=== PATIENT | female | born 1965 | race African-American/Black ===

== ENCOUNTER 2024-09-27 04:22 | Emergency (ER) | payer OTHER, SELFPAY ==
[2024-09-27] VITALS (7 sets, daily range): BP systolic 102–116; BP diastolic 66–98; PULSE 78–90; RESP 17–20; TEMP 36.8; O2SAT 97–100
[2024-09-27 08:06] LABS: Glucose Point of Care 371 mg/dl (65-105)
[2024-09-27 08:11] LABS: Add Urine Microscopic? NO; Appearance Urine Clear (Clear); Basophils Absolute Auto 0.1 K/mm3 (0.0-0.1); Basophils Percent Auto 0.5 % (0.2-1.2); Bilirubin Urine Negative (Negative); Blood Urine Negative (Negative); Color Urine Yellow (Yellow); Eosinophils Absolute Auto 0.3 K/mm3 (0-0.3); Eosinophils Percent Auto 3.1 % (0-4.4); Glucose Urine UA 3+ mg/dL (Negative); Hematocrit 40.2 % (37.0-47.0); Hemoglobin 12.6 g/dL (12.0-15.0); Immature Granulocyte Absolute 0.03 K/mm3 (0.00-0.031); Immature Granulocyte Percent A 0.3 % (0-0.5); Ketones Urine Negative (Negative); Leukocyte Esterase Ur Negative LEU/UL (Negative); Lymphocytes Absolute Auto 4.37 K/mm3 (0.9-3.2); Lymphocytes Percent Auto 46.5 % (18.3-44.2); Mean Corpuscular HGB Conc 31.3 g/dl (32-36); Mean Corpuscular Hemoglobin 27.3 pg (26-34); Monocytes Absolute Auto 0.5 K/mm3 (0.1-0.6); Monocytes Percent Auto 5.7 % (2.6-8.5); Neutrophils Absolute Auto 4.1 K/mm3 (1.3-6.7); Neutrophils Percent Auto 43.9 % (45.5-73.1); Nitrate Urine Negative (Negative); Platelet Count Result 183 k/mm3 (150-375); Protein Urine Negative (Negative); Red Blood Count 4.62 M/mm3 (4.2-5.4); Red Cell Distribution Width 12.8 % (11.5-14.5); Specific Grav Ur 1.031 (1.001-1.035); Urobilinogen Urine 0.2 mg/dL (<2.0); White Blood Count 9.4 K/mm3 (4.5-10.0); pH Urine 5.5 (5.0-9.0)
--- OUTSIDE RECORDS SUMMARY | 2024-09-27 08:19 | XMS_ITS | Encounter Summary ---
Author Name [facility] [place] [facility] [place] Address [address] [place] [address] Care Team Providers Care Hospital Coordinator Name Role Phone SWAPNA JUNG Primary Care Provider Unavailab le Insurance Providers: All historical and current Section Date Range: From patient's date of to the date document was created. This section includes the names of all active insurance providers for the patient. Insurance Provider Type of Coverage Plan Name Start of Policy Coverage End of Policy Coverage Group Number Member ID Insurance Provider's Telephone Number Policy Alexander's Name Patient's Relationship to Policy Alexander Selected Encounter This section includes the information on record at [place] for the Encounter. Date/Time Encounter Type Encounter Description Reason Provider Source Apr 26, 2024 10:00 AM OFFICE O/P EST MOD 30 MIN OPTOMETRY ICD-10-CM H43.813 Vitreous degeneration, bilateral HAUSER,MY-ERICA THI IHE Encounter Template Text not used by [place] Assessments - Encounter Diagnoses This section includes the primary and secondary diagnoses documented for the Encounter. Date/Time Primary/Secondary Diagnosis Diagnosis Name Provider Source Apr 26, 2024 12:36 PM PRIMARY Vitreous degeneration, bilateral HAUSER,PIERRE-ERICA THI [facility] Apr 26, 2024 12:36 PM SECONDARY Combined forms of age-related cataract, bilateral [facility] Apr 26, 2024 12:36 PM SECONDARY Degenerative myopia, bilateral [facility] Apr 26, 2024 12:36 PM SECONDARY Round hole, bilateral [facility] Apr 26, 2024 12:36 PM SECONDARY Type 2 diabetes mellitus without complications [facility] Plan of Treatment: Future Appointments (+ 6 months) and Future Tests (+/- 45 days) The Plan of Treatment section includes future care activities for the patient from all [place] [facility] This section includes future appointments and future orders which are active, pending or scheduled. Future Appointments This section includes appointments that were scheduled to occur 6 months from the date of the Encounter, up to a maximum of 20 appointments. The data comes from all [place] treatment facilities. Appointment Date/Time Appointment Type Appointme nt Facility Name May 02, 2024 11:00 AM AMBULATORY - MEDICINE [facility] May 09, 2024 10:40 AM AMBULATORY - NONE [facility] May 29, 2024 11:00 AM AMBULATORY - MEDICINE [facility] Jun 13, 2024 01:00 PM AMBULATORY - MEDICINE [facility] Jul 03, 2024 10:15 AM AMBULATORY - MEDICINE [facility] Jul 24, 2024 01:00 PM AMBULATORY - SURGERY [facility] Aug 11, 2024 01:45 PM AMBULATORY - MEDICINE [facility] Lab Results: +/- 30 days of the encounter This section includes the Chemistry and Hematology Lab Results on record with [place] for the patient. Radiology Reports and Pathology Reports are provided separately, in subsequent sections. Lab Results This section contains the Chemistry/Hematology Results that were resulted 30 days before or 30 daysafter the date of the Encounter. Date/Time Source Result Type Result - Unit Interpretation Reference Range Comment Apr 11, 2024 12:05 PM [facility] MICRAL/CREAT PROFILE (STL) Specimen Type: URINE No comment entered. Ordering Provider: ANITRA JUNG AVA Report Released Date/Time: Apr 10, 2024 08:49 AM Reporting Lab: [facility] [address] [facility] [phone] Performing Lab: [address] [address] URINE ALBUMIN (PB-STL) 12.9 mg/L uACR (STL) 8 mg/g 0-29 CREATININE URINE/OTHERS 154.4 mg/dL H 47-110 Apr 11, 2024 12:05 PM [facility] URINALYSIS (STL-PB) Specimen Type: URINE No comment entered. Ordering Provider: ANITRA JUNG Report Released Date/Time: Apr 10, 2024 08:49 AM Reporting Lab: [place] [address] Performing Lab: [place] [address] [place] [phone] URINE COLOR Light-Yellow Yellow U.BILIRUBIN Negative mg/dL Negative U.PH 6.0 5.0-8.0 APPEARANCE Clear Clear U.NITRITE Negative mg/dL Negative URN.GLUCOSE Normal mg/dL Negative URN.PROTEIN 10 mg/dL H Negative-20 URN.UROBILINOGEN Normal mg/dL Normal URN.BLOOD Negative mg/dL Negative-Tra ce URN.KETONES Negative mg/dL Negative-Tra ce URN.LEUK.EST. Negative mg/dL Negative-Tra ce URN.SPECIFIC GRAVITY 1.026 1.005-1.029 Apr 11, 2024 11:55 AM [facility] HGA1C Specimen Type: BLOOD No comment entered. Ordering Provider: ANITRA JUNG Report Released Date/Time: Apr 10, 2024 08:48 AM Reporting Lab: [facility] [phone] Performing Lab: [address] [address] HGA1C 9.2 H 4.0-6.0 Apr 11, 2024 11:55 AM [facility] LIPID PANEL (STL) Specimen Type: PLASMA Comment: No hemolysis noted. Ordering Provider: ANITRA JUNG Report Released Date/Time: Apr 10, 2024 08:49 AM Reporting Lab: [facility] [address] [place] [phone] Performing Lab: [facility] [address] [place] [phone] CHOLESTEROL 222 mg/dL H 0-200 TRIGLYCERIDE 83 mg/dL 0-150 CALCULATED LDL 134 mg/dL HDL(New) 71 mg/dL >40 Apr 11, 2024 11:55 AM [facility] VITAMIN D, 25-HYDROXY Specimen Type: SERUM No comment entered. Ordering Provider: ANITRA JUNG Report Released Date/Time: Apr 10, 2024 08:49 AM Reporting Lab: [facility] [address] [place] [phone] Performing Lab: [address] [phone] VITAMIN D, 25-HYDROXY 47.9 ng/mL 30-96 Apr 11, 2024 11:55 AM [facility] TSH W/ REFLEX FT4 (STL) Specimen Type: PLASMA No comment entered. Ordering Provider: ANITRA JUNG Report Released Date/Time: Apr 10, 2024 08:49 AM Reporting Lab: [facility] [address] [place] [phone] Performing Lab: [facility] [address] [place] [phone] TSH 0.823 u[IU]/mL 0.47-5 Apr 11, 2024 11:55 AM [facility] COMPREHENSIVE METABOLIC PANEL Specimen Type: PLASMA Comment: No hemolysis noted. Ordering Provider: ANITRA JUNG Report Released Date/Time: Apr 10, 2024 08:48 AM Reporting Lab: [facility] [address] [place] [phone] Performing Lab: [address] [address] CREATININE 0.93 mg/dL 0.6-1.1 UREA NITROGEN 21.3 mg/dL 9.0-25.0 GLUCOSE 155 mg/dL H 72-99 SODIUM 141 meq/L 136-145 POTASSIUM 3.8 meq/L 3.5-5 CHLORIDE 105 meq/L 98-107 CARBON DIOXIDE 27 meq/L 22-31 CALCIUM 10.2 mg/dL 8.4-10.4 PROTEIN 7.7 g/dL 6-8.6 ALBUMIN 4.7 g/dL 3.4-5 TOTAL BILIRUBIN 0.9 mg/dL 0.2-1.2 ALKALINE PHOSPHATASE 109 U/L 40-150 AST/SGOT 19 U/L 5-34 ALT/SGPT 19 U/L 8-40 EGFR (CKD-EPI 2020) 70.8 >60 Apr 11, 2024 11:55 AM [facility] CBC Specimen Type: BLOOD No comment entered. Ordering Provider: ANITRA JUNG Report Released Date/Time: Apr 10, 2024 08:49 AM Reporting Lab: [facility] [address] [facility] [phone] Performing Lab: [facility] [address] [facility] [phone] WBC 8.1 10*3/uL 3.6-11.2 RBC 4.96 10*6/uL 3.60-5.00 HGB 13.5 g/dL 11.0-14.9 HCT 42.3 32.6-43.4 MCV 85.3 fL 80.0-100.0 MCH 27.2 pg 27.0-34.0 MCHC 31.9 g/dL L 33.0-36.0 PLT 234 10*3/uL 150-400 MPV 12.9 fL H 7.5-11.2 RDW 13.2 11.8-15.1 LYMPHOCYTES, AUTO % 50 MONOCYTES, AUTO % 6 NEUTROPHILS, AUTO % 40 EOSINOPHILS, AUTO % 3 BASOPHILS, AUTO % 1 LYMPHOCYTES, ABSOLUTE 4.05 10*3/uL 0.77-4.50 MONOCYTES, ABSOLUTE 0.51 10*3/uL 0.19-0.80 NEUTROPHILS, ABSOLUTE 3.24 10*3/uL 2.10-8.00 EOSINOPHILS, ABSOLUTE 0.24 10*3/uL 0.00-0.60 BASOPHILS, ABSOLUTE 0.04 10*3/uL 0.00-0.20 Apr 04, 2024 11:01 AM [facility] GLUCOSE,BLOOD-poct (STL) Specimen Type: BLOOD Comment: Test Performed by: [id number] Meter #: [id number] Ordering Provider: ANITRA JUNG Report Released Date/Time: Apr 04, 2024 02:12 PM Reporting Lab: [facility] [address] [facility] [phone] Performing Lab: [facility] [address] [facility] [phone] GLUCOSE,BLOOD-po ct (STL) 331 mg/dL H 72-99 Social History: Smoking Status (Most current) and Tobacco Use (All prior to encounter date) This section includes the most current, and the historical, smoking and tobacco- related health factors from the [place] facility where the Encounter took place. Current Smoking Status This section includes the most current smoking, or tobacco-related health factor, from the [place] facility where the Encounter took place. Date/Time Current Smoking Status Comment Facil ity Feb 06, 2014 01:50 PM LIFETIME NON-USER OF TOBACCO [facility] Tobacco Use History This section includes a history of the smoking, or tobacco-related health factors, that were collected on or before the date of the Encounter. The data comes from the [place] facility where the Encounter took place. Date/Time Smoking Status/Tobacco Use Comment F acility Apr 10, 2013 02:18 PM LIFETIME NON-USER OF TOBACCO [facility] May 06, 2007 08:25 AM LIFETIME NON-USER OF TOBACCO [facility] Advance Directives: All historical and current Section Date Range: From patient's date of to the date document was created. This section includes ALL of a patient's completed or amended [place] Advance and Rescinded Directives. The entries below indicate that a directive exists for the patient, but an actual copy is not included with this document. The data comes from all [place] facilities. Date Advance Directives Provider Source Sep 17, 2014 ADVANCE DIRECTIVE DISCUSSION TAMMIE GARDNER [facility] Radiology Reports: +/- 30 days of the encounter Radiology Reports For cases when an order for radiology services may have been completed prior to the date of the Encounter, the report list includes the Radiology Reports that were completed up to 30 days before dateof the Encounter. For cases when an order for radiology services may have been completed after the date of the Encounter, the report list also includes the Radiology Reports that were completed up to30 days after date of the Encounter. The data comes from all [place] treatment facilities. Date/Time Radiology Report Provider Source May 09, 2024 10:26 AM MAMM DIG SCREENING WITH CAD-P: AMBER WIN [id number] -[id number] F Exm Date: MAY 09, 2024@10:26 Req Phys: SWAPNA JUNG Loc: [facility] (Req'g Img Loc: [facility] Service: [facility], [address] [address] (Case 463 COMPLETE) SCREENING DIG BREAST DEVAN, BILAT,([facility] Detailed) CPT:75747 Proc Modifiers : LEFT, RIGHT Reason for Study: Annual screening (Case 465 COMPLETE) MAMMOGRAPHY SCREENING, BILAT INCL([facility] Detailed) CPT:50566 Proc Modifiers : LEFT, RIGHT Clinical History: May 07, 2023: BI-RADS CATEGORY 1 Report Status: Verified Date Reported: MAY 10, 2024 Date Verified: MAY 10, 2024 Sql Data Architect E-Sig:/ES/ELIAN GOOD Report: BILATERAL SCREENING MAMMOGRAM CASE NUMBERS: [id number], [id number] DATE: 05/09/2024. COMPARISON: Multiple prior mammograms and breast sonograms, dating retrospectively between 05/16/2012 and, more recently, 05/07/2023. HISTORY: Screening mammogram. 58-year-old -[place] female without a family history of breast cancer presents for asymptomatic screening. Previous benign needle core biopsy of the right breast in 2010. Prior sonographically documented multiple right breast cysts. TECHNIQUE: Mammogram images were performed using 3D tomosynthesis images with reconstructed/synthetic 2D images and CAD analysis. BREAST COMPOSITION: The breasts are heterogeneously dense, which may obscure small masses. MAMMOGRAM FINDINGS: There is no suspicious mass, suspicious clustered microcalcification, or architectural distortion in either breast on 2D or 3D images. There are stable long-standing benign punctate microcalcifications associated with the areas of glandular density within each breast, statistically likely representing adenosis. There have been no significant interval changes in the mammographic appearance when compared with the prior images. Impression: No mammographic evidence of malignancy. ASSESSMENT: BI-RADS Category 2: Benign finding(s). RECOMMENDATION: Screening mammography according to the [employer] / [employer] guidelines in consultation with primary healthcare provider. Primary Interpreting Staff: ELIAN GOOD Diagnostic Radiologist (Sql Data Architect) /ELIAN MELTON [facility] Apr 11, 2024 11:42 AM KNEE OA SERIES LEFT 3 VWS>/=55: AMBER WIN [id number] -[id number] F Exm Date: APR 11, 2024@11:42 Req Phys: ERICHSWAPNA Pat Loc: [facility] PACT PHONE 03 PCP ( Img Loc: [facility] SUITE Service: [facility], [facility] [address] [place] [address] (Case [id number] COMPLETE) KNEE,LEFT, 3 VIEWS (RAD Detailed) CPT:61645 Proc Modifiers : BILAT AP & BILAT SUNRISE Reason for Study: Left knee pain, (Case 1635 COMPLETE) KNEE,RIGHT,1 OR 2 VIEWS (RAD Detailed) CPT:49607 Proc Modifiers : BILAT AP & BILAT SUNRISE Clinical History: left knee pain, hurting bad on walking Do films need to be ortho templated printed? No Report Status: Verified Date Reported: APR 11, 2024 Date Verified: APR 11, 2024 Sql Data Architect E-Sig:/ES/MELISSA CAMERON MD Report: Case #[id number] and #[id number]. Bilateral knee examination. COMPARISON: Left knee 05/22/2011. Finding: AP view of bilateral knee and lateral view of the left knee followed by sunrise view of the patella bilaterally shows marked joint space narrowing at the medial compartment of the right knee. Moderate joint space narrowing at the medial compartment of the left knee. No fracture dislocation. Marginal spur at all three compartments of the left knee. Small spur at the medial and the lateral compartment of the right knee. No evidence of left suprapatellar effusion. No radiopaque foreign body. Impression: Tricompartmental degenerative joint disease in the left knee. Marked degenerative joint disease at the medial compartment of the right knee. Primary Interpreting Staff: MELISSA CAMERON MD, Staff Physician - Radiologist (Sql Data Architect) /DARIO FINNEY [facility] Encounter Notes: All associated encounter notes This section contains the clinical notes associated to the Encounter. Date/Time Encounter Note(s) Provider Source Apr 26, 2024 12:20 PM OPTOMETRY CONSULT: LOCAL TITLE: OPTOMETRY CONSULT ST STANDARD TITLE: OPTOMETRY CONSULT DATE OF NOTE: APR 26, 2024@12:20 ENTRY DATE: APR 26, 2024@12:21:04 AUTHOR: ABDOULAYE HAUSER EXP COSIGNER: URGENCY: STATUS: COMPLETED Ocular Coherence Tomography Report RNFL/ONH and Macula Note: The image can be viewed on [facility] Reason for OCT: 1. Rx shift, decreased vision OS>OD Assessment: Macula OD: normal foveal pit contour, normal retina OS: normal foveal pit contour, normal retina OU: no DME /es/ ABDOULAYE HAUSER O.D. Staff Physician, Optometry Signed: 04/26/2024 12:22 ABDOULAYE HAUSER [facility] Apr 26, 2024 09:57 AM OPTOMETRY NOTE: LOCAL TITLE: OPTOMETRY NOTE STANDARD TITLE: OPTOMETRY NOTE DATE OF NOTE: APR 26, 2024@09:57 ENTRY DATE: APR 26, 2024@09:57:49 AUTHOR: ABDOULAYE HAUSER EXP COSIGNER: URGENCY: STATUS: COMPLETED Last seen: 05/26/2023 CC: 1. Floaters OS>OD ongoing for 4 months now denies flashes of lights intermittent, current notices them paz ovals per patient 2. vision is stable states blood sugars were elevated for about 2 weeks says slowly getting better/under control contacts are comfortable, vision in OS is blurry does not sleep in contacts has a couple months worth left glasses are in good condition Ocular Meds: (+) PFATs PRN OU (+) Refresh PM QHS OU (+) Ketotfien BID OU Ocular ROS: (+) Degenerative Myopia OU/ Contact lens dispense OU (+) Diabetes without retinopathy OU (+) Combined Cataracts OU (+) Atrophic Holes OU per last DFE *s/p barricade laser OU, retina intact 360^ OU (+) Dry Eyes/Allergic conjunctivitis OU Family OcHX: (-) blindness (-) glaucoma (-) AMD (-) RD Problem list, medications and allergies reviewed: CPRS Serology for Diabetes GLUCOSE 155 H mg/dL 04/11/2024 11:55 HGA1C 9.2 H % 04/11/2024 11:55 Cardiovascular BP: 142/84 (04/04/2024 10:49) Pulse: 92 (04/04/2024 10:49) VISUAL ACUITY: With Correction, Distance Visual Acuity (SCLs) OD: 20/20 slow OR: +0.25 DS VA: 20/20 fluctuating OS: 20/40 doubling/shadow OR: +1.75 DS VA: 20/20 fluctuating Pupils: PERRL OU (-)APD Confrontation: Full OU Extra-Ocular Muscles: Full and smooth OU Externals/Adnexa: Unremarkable OU Manifest Refraction: 01/06/21 OD: -10.25 -0.50 x055 20/25 OS: -10.00 -0.75 x155 20/25 20/20 OU Add: +2.50 TF'd for acceptance distance and near Manifest Refraction: 03/04/23 OD: -10.75 -0.50 x055 20/25 OS: -9.50 -0.75 x155 20/20- 20/20-2 OU Add: +2.50 Refraction 04/26/2024 OD: -10.00 -0.75 x055 20/25+2 - poor end points OS: -9.00 -0.50 x155 20/25 - poor end points SLIT LAMP EXAMINATION Lids/Lashes/Lacrimal No blepharitis OU; thin tear prism OU Conjunctiva/Sclera tr diffuse injection, 1+ papillary rxn BUL/BLL Cornea instant/oily TBUT OU OD: ~1mm encroachment superior/temporal OS: ~1mm inferonasal and superonasal Ant Chamber Deep and quiet OU Iris Normal, (-)NVI OU Lens 1+ NS, 1-2+ ACC/PCC OS>OD Intraocular Pressure History (Fluress/Goldmann): Date OD OS Time Meds 01/06/2021 17 18 1431 none 03/04/23 16 18 0818 none 04/26/2024 17 18 1023 none RETINAL EVALUATION - DFE Dilated retinal exam Instilled 1 gtt phenylephrine 2.5%, 1 gtt tropicamide 1% OU Patient understands the side effects associated with dilation Optic Nerve: OD: 0.45 CDR Flat, pink, distinct (-)NVD, tilt, PPA OS: 0.40 CDR Flat, pink, distinct (-)NVD, tilt, PPA Vessels: 2/3 OU Macula: OD: Flat, clear (-)CSME OS: Flat, clear (-)CSME Periphery: OD: Flat and attached, heavy barrier laser scarring essentially 360 OS: Flat and attached, heavy barrier laser scarring essentially 360 Vitreous: (+)few vitreous opacities overlying barricated retinal holes OU (+)PVD OU Assessment/Plan 04/26/2024 1. Posterior Vitreous Detachment, OU - OD longstanding, OS new - retina intact 360^ - symptoms for 4 months now, no flashes - Reviewed signs and symptoms of RD and instructed patient to RTC STAT if experiencing any. - Monitor 2. Type 2 Diabetes without retinopathy, OU - Last a1c 9.2 - states elevated recently - No DME/CSME on clinical examination; confirmed with OCT Macula - Educate and monitor, discussed diabetic eye disease, patient understands importance of good blood sugar control. - Monitor 3. Atrophic Holes, OU - s/p Barricade Laser OU - Retina intact 360 OU - RD precautions as above - Monitor yearly with DFE - STRICT return SUNITA with any s/sx of RD 4. Combined Cataracts, OU - Discussed impact on vision - Mildly visually significant - Defer referral for CE-PCIOL until s/sx indicate 5. Dry Eyes Symptoms, OU - Allergic conjunctivitis, OU - Encouraged to use PF-ATs up to QID/+PRN OU - Monitor 3-4 months Aseg 6. Degenerative Myopia OU/Contact Lens Dispense, OU - Pt. previous wore Acuvue Oasys, signs of encroachment 12/2020 - Fit of contact lens adequate today - OR showing hyperopic shift in CL and Rx - Hx of elevated blood sugars - Will recheck in 3-4 months Educate and monitor, discussed all exam findings. Patient and/or surrogate verbalized understanding of the instructions/information given. RTC: 3-4 months Aseg and CL Eval/MRx repeat CONTACT LENS ASSESSMENT: 04/26/2024 OD: Brand: Acuvue Oasys 1 Day with Hydraluxe BC: 8.5 JASSI: 14.3 Power: -9.50 DS VA: 20/20 slow OR: +0.25 DS 20/20 fluctuating Fit: Good CCM; oily TF OS: Brand: Acuvue Oasys 1 Day with Hydraluxe BC: 8.5 JASSI: 14.3 Power: -8.50 DS VA: 20/40 shadowing OR: +1.75 DS 20/20 fluctuating Fit: Good CCM; oily TF /jacek/ ABDOULAYE HAUSER O.D. Staff Physician, Optometry Signed: 04/26/2024 12:37 ABDOULAYE HAUSER [facility]
--- OUTSIDE RECORDS SUMMARY | 2024-09-27 08:20 | XMS_ITS | Encounter Summary ---
Author Name [facility] Organization [facility] [place] Address [address] [place] [address] Care Team Providers Care Mems Device Scientist Name Role Phone SWAPNA JUNG Primary Care [...] section includes the information on record at [place] for the Encounter. Date/Time Encounter Type Encounter Description Reason Provider Source Apr 04, 2024 11:00 AM OFFICE O/P EST MOD 30 MIN PRIMARY CARE/MEDICINE ICD-10-CM E11.9 Type 2 diabetes mellitus without complications JANETH JUNG Encounter Template Text not used by [place] Assessments - Encounter Diagnoses This section includes the primary and secondary diagnoses documented for the Encounter. Date/Time Primary/Secondary Diagnosis Diagnosis Name Provider Source Apr 04, 2024 11:18 AM PRIMARY Type 2 diabetes mellitus without complications [facility] Apr 04, 2024 11:18 AM SECONDARY Acne, unspecified DANITZA JUNG [facility] Apr 04, 2024 11:18 AM SECONDARY Benign lipomatous neoplasm, unspecified DANITZA JUNG [facility] Apr 04, 2024 11:18 AM SECONDARY Essential (primary) hypertension DANITZA JUNG [facility] Apr 04, 2024 11:18 AM SECONDARY Primary osteoarthritis, unspecified site DANITZA JUNG [facility] Apr 04, 2024 11:18 AM SECONDARY Type 2 diabetes mellitus with unspecified complications DANITZA JUNG [facility] Plan of Treatment: Future Appointments (+ 6 months) and Future Tests (+/- 45 days) The Plan of Treatment section includes future care activities for the patient from all [facility] This section includes future appointments and future orders which are active, pending or scheduled. Future Appointments This section includes appointments that were scheduled to occur 6 months from the date of the Encounter, up to a maximum of 20 appointments. The data comes from all [place] treatment facilities. Appointment Date/Time Appointment Type Appointme nt Facility Name Apr 10, 2024 08:30 AM AMBULATORY - MEDICINE [facility] Apr 11, 2024 02:15 PM AMBULATORY - MEDICINE [facility] Apr 26, 2024 10:00 AM AMBULATORY - SURGERY [facility] May 02, 2024 11:00 AM AMBULATORY - MEDICINE [facility] May 09, 2024 10:40 AM AMBULATORY - NONE [facility] May 29, 2024 11:00 AM AMBULATORY - MEDICINE [facility] Jun 13, 2024 01:00 PM AMBULATORY - MEDICINE [facility] Jul 03, 2024 10:15 AM AMBULATORY - MEDICINE [facility] Jul 24, 2024 01:00 PM AMBULATORY - SURGERY [facility] Aug 11, 2024 01:45 PM AMBULATORY - MEDICINE [facility] Lab Results: +/- 30 days of the encounter This section includes the Chemistry and Hematology Lab Results on record with [place] for the patient. Radiology Reports and Pathology Reports are provided separately, in subsequent sections. Lab Results This section contains the Chemistry/Hematology Results that were resulted 30 days before or 30 daysafter the date of the Encounter. Date/Time Source Result Type Result - Unit Interpretation Reference Range Comment Apr 11, 2024 12:05 PM [facility] MICRAL/CREAT PROFILE (STL) Specimen Type: URINE No comment entered. Ordering Provider: ANITRA JUNG Report Released Date/Time: Apr 10, 2024 08:49 AM Reporting Lab: [facility] [address] [place] [phone] Performing Lab: [facility] [address] [place] [phone] URINE ALBUMIN (PB-STL) 12.9 mg/L uACR (STL) 8 mg/g 0-29 CREATININE URINE/OTHERS 154.4 mg/dL H 47-110 Apr 11, 2024 12:05 PM [facility] URINALYSIS (STL-PB) Specimen Type: URINE No comment entered. Ordering Provider: ANITRA JUNG Report Released Date/Time: Apr 10, 2024 08:49 AM Reporting Lab: [facility] [address] [place] [phone] Performing Lab: [address] [phone] URINE COLOR Light-Yellow Yellow U.BILIRUBIN Negative mg/dL Negative U.PH 6.0 5.0-8.0 APPEARANCE Clear Clear U.NITRITE Negative mg/dL Negative URN.GLUCOSE Normal mg/dL Negative URN.PROTEIN 10 mg/dL H Negative-20 URN.UROBILINOGEN Normal mg/dL Normal URN.BLOOD Negative mg/dL Negative-Tra ce URN.KETONES Negative mg/dL Negative-Tra ce URN.LEUK.EST. Negative mg/dL Negative-Tra ce URN.SPECIFIC GRAVITY 1.026 1.005-1.029 Apr 11, 2024 11:55 AM [facility] Specimen Type: BLOOD No comment entered. Ordering Provider: ANITRA JUNG Report Released Date/Time: Apr 10, 2024 08:48 AM Reporting Lab: [facility] [address] [place] [phone] Performing Lab: [address] [address] HGA1C 9.2 H 4.0-6.0 Apr 11, 2024 11:55 AM [facility] LIPID PANEL (STL) Specimen Type: PLASMA Comment: No hemolysis noted. Ordering Provider: ANITRA JUNG Report Released Date/Time: Apr 10, 2024 08:49 AM Reporting Lab: [facility] [address] [facility] [phone] Performing Lab: [facility] [address] [facility] [phone] CHOLESTEROL 222 mg/dL H 0-200 TRIGLYCERIDE 83 mg/dL 0-150 CALCULATED LDL 134 mg/dL HDL(New) 71 mg/dL >40 Apr 11, 2024 11:55 AM [facility] VITAMIN D, 25-HYDROXY Specimen Type: SERUM No comment entered. Ordering Provider: ANITRA JUNG Report Released Date/Time: Apr 10, 2024 08:49 AM Reporting Lab: [facility] [address] [facility] [phone] Performing Lab: [facility] [address] [facility] [phone] VITAMIN D, 25-HYDROXY 47.9 ng/mL 30-96 Apr 11, 2024 11:55 AM [facility] TSH W/ REFLEX FT4 (L) Specimen Type: PLASMA No comment entered. Ordering Provider: ANITRA JUNG Report Released Date/Time: Apr 10, 2024 08:49 AM Reporting Lab: [facility] [address] [facility] [phone] Performing Lab: [facility] [address] [facility] [phone] TSH 0.823 u[IU]/mL 0.47-5 Apr 11, 2024 11:55 AM [facility] COMPREHENSIVE METABOLIC PANEL Specimen Type: PLASMA Comment: No hemolysis noted. Ordering Provider: ANITRA JUNG Report Released Date/Time: Apr 10, 2024 08:48 AM Reporting Lab: [facility] [address] [facility] [phone] Performing Lab: [facility] [address] [place] [phone] CREATININE 0.93 mg/dL 0.6-1.1 UREA NITROGEN 21.3 [...] 70.8 >60 Apr 11, 2024 11:55 AM [facility] CBC Specimen Type: BLOOD No comment entered. Ordering Provider: ANITRA JUNG AVA Report Released Date/Time: Apr 10, 2024 08:49 AM Reporting Lab: [facility] [address] [place] [phone] Performing Lab: [address] [phone] WBC 8.1 10*3/uL 3.6-11.2 RBC 4.96 10*6/uL [...] 10*3/uL 0.00-0.20 Apr 04, 2024 11:[address] [facility] GLUCOSE,BLOOD-poct (STL) Specimen Type: BLOOD Comment: Test Performed by: [id number] Meter #: [id number] Ordering Provider: ANITRA JUNG Report Released Date/Time: Apr 04, 2024 02:12 PM Reporting Lab: [facility] [address] [facility] [phone] Performing Lab: [facility] [address] [facility] [phone] GLUCOSE,BLOOD-po ct (STL) 331 mg/dL H 72-99 Vital Signs: All taken on the encounter date This section contains inpatient and outpatient Vital Signs collected on the date of the Encounter. Date/Time Temperature Pulse Blood Pressure Respiratory Rate SP02 Pain Height Weight Body Mass Index Source Apr 04, 2024 10:49 AM 97.8 92 142/84 16 [address] [facility] Social History: Smoking Status (Most current) and Tobacco Use (All prior to encounter date) This section includes the most current, and the historical, smoking and tobacco- related health factors from the [place] facility where the Encounter took place. Current Smoking Status This section includes the most current smoking, or tobacco-related health factor, from the [place] facility where the Encounter took place. Date/Time Current Smoking Status Comment Twan ity May 28, 2023 02:00 PM VA-TOBACCO NEVER USED [facility] Tobacco Use History This section includes a history of the smoking, or tobacco-related health factors, that were collected on or before the date of the Encounter. The data comes from the [place] facility where the Encounter took place. Date/Time Smoking Status/Tobacco Use Comment F acility May 29, 2022 03:00 PM VA-TOBACCO NEVER [facility]ED [facility] Mar 21, 2021 11:30 AM VA-TOBACCO NEVER [facility]ED [facility] Oct 24, 2019 09:17 AM VA-TOBACCO NEVER [facility]ED [facility] Aug 08, 2018 02:11 PM VA-TOBACCO NEVER [facility]ED [facility] Mar 02, 2017 02:54 PM LIFETIME NON-USER OF TOBAC CO . [facility] Feb 12, 2017 03:17 PM LIFETIME NON-USER OF TOBACCO [facility] Feb 10, 2017 09:17 AM LIFETIME NON-USER OF TOBACCO [facility] Jul 09, 2016 03:17 PM LIFETIME NON-USER OF TOBACCO [facility] Sep 27, 2015 02:47 PM LIFETIME NON-USER OF TOBACCO [facility] November 28, 2014 02:10 PM LIFETIME NON-USER OF TOBACCO [facility] Advance Directives: All historical and current Section Date Range: From patient's date of to the date document was created. This section includes ALL of a patient's completed or amended [place] Advance and Rescinded Directives. The entries below indicate that a directive exists for the patient, but an actual copy is not included with this document. The data comes from all [place] facilities. Date Advance Directives Provider Source Sep 17, 2014 ADVANCE DIRECTIVE DISCUSSION TAMMIE GARDNER [facility] Radiology Reports: +/- 30 days of the [...] the Encounter. The data comes from all [place] treatment facilities. Date/Time Radiology Report Provider Source Apr 11, 2024 11:42 AM KNEE OA SERIES LEF T 3 VWS>/=55: AMBER WIN [id number] -[phone] F Exm Date: APR 11, 2024@11:42 Req Phys: SWAPNA JUNG Pat Loc: -[facility] PACT PHONE 03 PCP ( Img Loc: -MAIN RADIOLOGY SUITE Service: [facility], [address] [place] [address] (Case [id number] COMPLETE) KNEE,LEFT, 3 VIEWS (RAD Detailed) CPT:29879 Proc Modifiers : BILAT AP & BILAT SUNRISE Reason for Study: Left knee pain, (Case 1635 COMPLETE) KNEE,RIGHT,1 OR 2 VIEWS (RAD Detailed) CPT:76251 Proc Modifiers : BILAT AP & BILAT SUNRISE Clinical History: left knee pain, hurting bad on walking Do films need to be ortho templated printed? No Report Status: Verified Date Reported: APR 11, 2024 Date Verified: APR 11, 2024 Under Ground [employer]er E-Sig:/ES/MELISSA CAMERON MD Report: Case #[id number] and [...] MELISSA CAMERON MD, Staff Physician - Radiologist (Under Ground Miner) /MELISSA FINNEY [facility] Encounter Notes: All associated encounter notes This section contains the clinical notes associated to the Encounter. Date/Time Encounter Note(s) Provider Source Apr 04, 2024 10:57 AM PRIMARY CARE NOTE: LOCAL TITLE: PRIMARY CARE PROVIDER ESTABLISHED VISIT [facility] STANDARD TITLE: PRIMARY CARE NOTE DATE OF NOTE: APR 04, 2024@10:57 ENTRY DATE: APR 04, 2024@10:57:59 AUTHOR: SWAPNA JUNG EXP COSIGNER: URGENCY: STATUS: COMPLETED ESTABLISHED PATIENT [id number]: REASON FOR VISIT/CHIEF COMPLAINT: Multiple c/o Please note that this dictation was completed with computer voice recognition software, often unanticipated grammatical, syntax and other interpretive errors are inadvertently transcribed by the computer software. Please disregard these errors. HPI: 58 YO AAF with medical hx of DM2,Hypertension, HL s/p bilateral carpal tunnel syndrome, ACN/facial scars Back pain, knee pain s/p bilateral knee surgery Patient came to the clinic with multiple complaints Report not feeling good no appetite since last 2 months Feeling tired and fatigue, not taking diabetes medicine or monitor Blood sugar, patient is trying to treat her diabetes with a holistic Medicine. Report for polyuria and increased thirst She had history of noncompliant and has been transferred to ER Few times before due to same complaint She has a big lipoma around right thigh asking for referral Pain in left knee hard time to walk Also breaking out has rash all over her face and back of neck Had same problem with acne in the past Patient is tearful and reports not feeling good Complains of fever WHAT IS YOUR GOAL FOR TODAY? As above SOURCE(S) OF HISTORY: Patient PAST MEDICAL HISTORY: 1) Obesity (SNOMED CT 255423890) 2) 599 3) Acute pharyngitis 4) Chronic back pain (SNOMED CT 576601084) 5) Dermatophytosis of foot (ICD-9-CM 110.4) 6) Asthma * (ICD-9-CM 493.90) 7) Knee pain (SNOMED CT 0436018328) 8) Psychotic Disorder NOS 9) Chronic Low Back Pain (ICD-9-CM 724.2) 10) Asthma (SNOMED CT 349923810) 11) Benign essential hypertension (SNOMED CT 1296697) 12) Anxiety Disorder NOS 13) Chronic anxiety (SNOMED CT 952671860) 14) Muscle Spasm (ICD-9-CM 728.85) 15) Breast Mass (ICD-9-CM 611.72) 16) OA - Osteoarthritis (SNOMED CT 257082096) 17) Hypokalemia * (ICD-9-CM 276.8) 18) 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< (SNOMED CT 685700199) 19) Asthma (SNOMED CT 314209111) 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 21) CTS - Carpal tunnel syndrome (SNOMED CT 89220454) 22) Lateral Epicondylitis (Tennis Elbow) (ICD-9-CM 726.32) 23) Depression (SNOMED CT 33988645) 24) Impaired glucose tolerance (SNOMED CT 6550441) 25) Sleep apnea syndrome (SNOMED CT 45578282) 26) Ganglion of wrist 27) Rotator Cuff Syndrome 28) Shoulder pain (SNOMED CT 23762331) 29) Diabetes mellitus 30) Hyperlipidemia 31) Acute pharyngitis 32) Pain in left foot 33) Moderate dehydration 34) Lipoma 35) Sinusitis 36) Gastro-esophageal reflux disease 37) Folliculitis 38) Urticaria 39) Conjunctivitis 40) Acne vulgaris 41) Diabetic - poor control 42) OM - Otitis media 43) Impacted cerumen in right ear 44) Carpal tunnel syndrome 45) Closed fracture of phalanx of right great toe 46) Wrist pain 47) Pain in right hand 48) Exposure to potentially hazardous substance 49) Entrapment of right ulnar nerve at elbow 50) Bronchitis ALLERGIES: EGGS, METFORMIN, EMPAGLIFLOZIN, PENICILLIN ALLERGY REVIEW: Allergy list reviewed and remains current. MEDICATION RECONCILIATION: I have reviewed the patient's medication list with the patient and/or his/her care-ticket clerk. Handwritten corrections, additions and/or deletions were made to the list. Corrected Outpatient Medication List was provided to the patient/caregiver. Active Outpatient Medications (including Supplies): Active Outpatient Medications Status 1) ALBUTEROL 90MCG (CFC-F) 200D ORAL INHL INHALE 2 PUFFS ACTIVE ORAL INHALATION FOUR TIMES A DAY FOR ASTHMA SHAKE WELL. RINSE MOUTHPIECE FREQUENTLY TO PREVENT CLOGGING. 2) ATORVASTATIN CALCIUM 40MG TAB TAKE ONE-HALF TABLET BY ACTIVE MOUTH EVERY EVENING TO LOWER CHOLESTEROL 3) BENZONATATE 100MG CAP TAKE ONE CAPSULE BY MOUTH THREE ACTIVE TIMES A DAY NEEDED 4) CETIRIZINE HCL 10MG TAB TAKE ONE TABLET BY MOUTH ONCE ACTIVE A DAY TAKE DAILY FOR ITCH AND ALLERGIES 5) CHOLECALCIF 50MCG (D3-2,000UNIT) TAB TAKE ONE TABLET ACTIVE BY MOUTH ONCE A DAY FOR VITAMIN D DEFICIENCY. 6) CITALOPRAM HYDROBROMIDE 40MG TAB TAKE ONE TABLET BY ACTIVE MOUTH EVERY MORNING FOR DEPRESSION 7) FLUTICASONE PROP 50MCG 120D NASAL INHL INSTILL 2 ACTIVE SPRAYS IN NOSTRIL(S) ONCE A DAY (MUST BE USED DIRECTED FOR MINIMUM OF 21 DAYS TO PROVIDE ADEQUATE BENEFITS) 8) GLIMEPIRIDE 4MG TAB TAKE ONE TABLET BY MOUTH ONCE A ACTIVE DAY FOR DIABETES WITH FOOD 9) GLUCOSE SENSOR FREESTYLE JOSHUA 3 USE SENSOR EVERY ACTIVE 2 WEEKS FOR BLOOD SUGAR MONITORING CHANGE SENSOR/SITE EVERY 14 DAYS. TO REPLACE SENSOR FOR ANY REASON OR FOR TECHNICAL HELP PLEASE CALL [employer] HELP DESK: -SPECIFIC PHONE NUMBER: ([phone]). 10) HCTZ 12.5/LISINOPRIL 10MG TAB TAKE 1 TABLET BY MOUTH ACTIVE EVERY MORNING FOR HEART OR BLOOD PRESSURE 11) HYDROCORTISONE 2.5% CREAM APPLY SPARINGLY TO AFFECTED ACTIVE AREA(S) ONCE A DAY NEEDED FOR EXTERNAL USE ONLY. APPLY SPARINGLY. 12) INSULIN,ASPART(EQV-NOVLG)10 0UN/ML FLXPEN INJECT 10 ACTIVE UNITS UNDER THE SKIN THREE TIMES A DAY BEFORE MEALS FOR DIABETES ADMINISTER 10 MINUTES BEFORE FOOD DIRECTED. REFRIGERATE UN-OPENED PENS. DISCARD CARTRIDGE 28 DAYS AFTER OPENING. 13) INSULIN,GLARGINE-YFGN 100UNIT/ML PEN 3ML INJECT 40 ACTIVE UNITS UNDER THE SKIN AT BEDTIME FOR BLOOD SUGAR CONTROL. ADMINISTER AT SAME TIME EACH DAY DIRECTED. DISCARD ANY OPEN CARTRIDGE AFTER 28 DAYS. 14) NEEDLE,PEN 31G,5MM USE 1 NEEDLE UNDER THE SKIN FOUR ACTIVE TIMES A DAY 15) POTASSIUM CL 20MEQ SA TAB (DISPERSIBLE) TAKE ONE-HALF ACTIVE TABLET BY MOUTH ONCE A DAY FOR POTASSIUM SUPPLEMENTATION TAKE WITH FOOD 16) SITAGLIPTIN (EQV-ZITUVIO) 50MG TAB TAKE ONE TABLET BY ACTIVE MOUTH ONCE A DAY FOR DIABETES REPLACES ALOGLIPTIN 17) SULFACETAMIDE NA 10% TOP SUSP APPLY SMALL AMOUNT TO ACTIVE AFFECTED AREA(S) TWICE A DAY (SHAKE WELL) (EXTERNAL USE ONLY) 18) TACROLIMUS 0.1% TOP OINT APPLY LIGHTLY TO AFFECTED ACTIVE AREA(S) ONCE A DAY FOR FACE (EXTERNAL USE ONLY) Active Non-VA Medications Status 1) Non-VA ASPIRIN 81MG EC TAB 81MG BY MOUTH ONCE A DAY ACTIVE NEEDED 2) Non-VA MULTIVITAMIN CAP/TAB 1 TABLET BY MOUTH ONCE A ACTIVE DAY 20 Total Medications Review of systems: As above Report for fever, no chills No ear nose or throat complaints Denies chest pain, shortness of breath or palpitation No difficulty in breathing or cough Report for abdominal discomfort, nausea loss of appetite no diarrhea or constipation Left knee pain Back lipoma around right thigh Rash all over face Mood anxious and patient is tearful denies SI/HI PHYSICAL EXAMINATION: Female General appearance: VITALS (most recent, as listed in the electronic record): B/P: 142/84 (04/04/2024 10:49) Pulse: 92 (04/04/2024 10:49) Temperature: 97.8 F [36.6 C] (04/04/2024 10:49) Weight: 164.8 lb [74.75 kg] (04/04/2024 10:49) Height: 59 in [149.9 cm] (04/04/2024 10:49) BMI: 33.4 Pain: 7 (04/04/2024 10:49) (0-10 scale) Patient Weight History - Last Four 1. 164.8 lbs. / 74.8 kg. on APR 04, 2024@10:49:45 2. 169.0 lbs. / 76.7 kg. on NOVEMBER 29, 2023@11:08:25 3. 181.8 lbs. / 82.5 kg. on OCT 29, 2023@08:22:36 4. 181.3 lbs. / 82.2 kg. on JUL 23, 2023@07:51:53 Physical exam 58 years old Afro-Ukrainian female looks anxious Chest: CTAB CV:RRR Abd: Soft, nontender MSK: Left knee tender on movement no arrhythmia are swelling Skin: Rash all over sides of face and back of neck With lipoma around right thigh nontender. DATA REVIEW: HbA1C: HGA1C 10.9 H % 11/30/2023 11:23 Lipid Panel: TRIGLYCERIDE 83 mg/dL 06/10/2023 08:40 CHOLESTEROL 172 mg/dL 06/10/2023 08:40 HDL(New) 66 mg/dL 06/10/2023 08:40 CALCULATED LDL 89 mg/dL 06/10/2023 08:40 CMP: SODIUM 132 L mEq/L 11/30/2023 11:23 POTASSIUM 3.9 mEq/L 11/30/2023 11:23 CHLORIDE 97 L mEq/L 11/30/2023 11:23 UREA NITROGEN 26.8 H mg/dL 11/30/2023 11:23 CREATININE 1.50 H mg/dL 11/30/2023 11:23 CALCIUM 10.2 mg/dL 11/30/2023 11:23 PROTEIN 7.4 g/dL 11/30/2023 11:23 ALBUMIN 4.2 g/dL 11/30/2023 11:23 ALKALINE PHOSPHATASE 134 U/L 11/30/2023 11:23 ALT/SGPT 30 U/L 11/30/2023 11:23 AST/SGOT 17 U/L 11/30/2023 11:23 TOTAL BILIRUBIN 0.4 mg/dL 11/30/2023 11:23 CARBON DIOXIDE 26 mEq/L 11/30/2023 11:23 GLUCOSE 386 H mg/dL 11/30/2023 11:23 EGFR (CKD-EPI 2020) 39.9 11/30/2023 11:23 CBC: WBC 15.9 H 10*3/uL 11/30/2023 11:23 RBC 4.92 10*6/uL 11/30/2023 11:23 HGB 13.3 g/dL 11/30/2023 11:23 HCT 41.2 % 11/30/2023 11:23 MCV 83.7 fL 11/30/2023 11:23 MCH 27.0 pg 11/30/2023 11:23 MCHC 32.3 L g/dL 11/30/2023 11:23 RDW 13.0 % 11/30/2023 11:23 PLT 218 10*3/uL 11/30/2023 11:23 MPV 11.8 H fL 11/30/2023 11:23 NEUTROPHILS, AUTO % 57 % 06/10/2023 08:40 LYMPHOCYTES, AUTO % 29 % 06/10/2023 08:40 MONOCYTES, AUTO % 7 % 06/10/2023 08:40 EOSINOPHILS, AUTO % 6 % 06/10/2023 08:40 BASOPHILS, AUTO % 1 % 06/10/2023 08:40 NEUTROPHILS, ABSOLUTE 3.85 10*3/uL 06/10/2023 08:40 LYMPHOCYTES, ABSOLUTE 1.99 10*3/uL 06/10/2023 08:40 MONOCYTES, ABSOLUTE 0.44 10*3/uL 06/10/2023 08:40 EOSINOPHILS, ABSOLUTE 0.41 10*3/uL 06/10/2023 08:40 BASOPHILS, ABSOLUTE 0.04 10*3/uL 06/10/2023 08:40 NEUTROPHILS 24.8 % 11/30/2023 11:23 LYMPHOCYTES 57.3 % 11/30/2023 11:23 MONOCYTES 7.7 % 11/30/2023 11:23 EOSINOPHILS 1.7 % 11/30/2023 11:23 BASOPHILS 0.8 % 11/30/2023 11:23 ATYPICAL LYMPHOCYTES 7.7 % 11/30/2023 11:[address]MM[address]T FRACTION 12.9 H % 06/10/2023 08:40 STOMATOCYTES 1+ 11/30/2023 11:23 INR: INR VALUE 1.1 INR 11/30/2022 13:18 PROTIME 11.8 sec 11/30/2022 13:18 UA: URINE COLOR Yellow 11/30/2023 11:33 APPEARANCE Clear 11/30/2023 11:33 U.PH 5.5 11/30/2023 11:33 U.BILIRUBIN Negative mg/dL 11/30/2023 11:33 U.NITRITE Negative mg/dL 11/30/2023 11:33 URINE RBC/HPF 2 /HPF 11/30/2023 11:33 URINE WBC/HPF 2 /HPF 11/30/2023 11:33 BACTERIA RARE /HPF 11/30/2022 13:18 SQUAMOUS EPITH. 1 /HPF 11/30/2023 11:33 MUCUS RARE /LPF 11/30/2023 11:33 HYALINE CASTS 32 /LPF 11/30/2023 11:33 Chest x-ray: Impression for CHEST X-RAY, 2 VIEWS, 11/30/23, case [id number] No acute disease EKG: No data available for: EKG CONSULT STL EKG CONSULTS PB EKG RESULTS MA Result: Acceptable Follow-up Action: Data results reviewed with patient and/or caregiver. Assessment and planning 1. -DM2 uncontrolled/dehydration Blood sugar in clinic 331 Not taking medicine since 2 months do not monitor blood sugars Transferred to the ER, offered to send by EMS to close ER Patient refused she will go home and go to [facility] with her I called [facility] and inform about patient's symptoms Not available onsite need to check for electrolytes and needed IV fluids And insulin to treat her elevated blood sugars Recommend patient call back clinic when discharged from hospital To address her other issues. 2. -Left knee pain, will follow after hospital discharge May get [facility] x-[facility] at [facility] while she she is going there 3. -Lipoma right thigh, recommend referral to surgery But need optimal control of blood sugar before before surgery So that wound healed well and prevent complications 4. -Dermatitis/acne, May treated in hospital with antibiotic while she is going there, otherwise I will follow and refer to dermatology again 5. -Depression, warm handoff to [facility], patient denies SI/HI RTC: Follow-up after hospital discharge make phone visit or VVC SUMMARY STATEMENT: Plan of care has been discussed with including expected therapeutic benefits and potential side effects of prescribed medication and treatments. verbalizes understanding and is in agreement with the plan of care. Patient was instructed to keep all scheduled appointments and contact tax economist for any additional problems. Follow-Up Pos PTSD/Depression: I have reviewed the results of the Mental Health screens and have evaluated the patient. Based on the evaluation, the following disposition plan will be implemented: Patient to be evaluated by Mental Health Routine/Non-emergent Mental Health Evaluation needed. Comment: Warm handoff to [facility] // SWAPNA JUNG staff physician Signed: 04/04/2024 14:13 SWAPNA JUNG [facility] Apr 04, 2024 10:54 AM NURSING NOTE: LOCAL TITLE: V15 PACT FACE TO FACE NOTE [facility] STANDARD TITLE: NURSING NOTE DATE OF NOTE: APR 04, 2024@10:54 ENTRY DATE: APR 04, 2024@10:54:30 AUTHOR: JOHNNY BERMUDEZ COSIGNER: URGENCY: STATUS: COMPLETED Provider Visit: Patient Identifiers : Full Name Date of Reason for visit: Established Follow-Up Pt states that she hasnt been having an appetite lately; Pain in left knee and mass on right thigh Mode of Arrival: Ambulatory Allergy Review: EGGS, METFORMIN, EMPAGLIFLOZIN, PENICILLIN Allergy list reviewed and remains current. Recent Vital Signs: Temperature: 97.8 F [36.6 C] (04/04/2024 10:49) Pulse: 92 (04/04/2024 10:49) Respiration: 16 (04/04/2024 10:49) B/P: 142/84 (04/04/2024 10:49) Pain: 7 (04/04/2024 10:49) Wt: 164.8 lb [74.75 kg] (04/04/2024 10:49) Ht: 59 in [149.9 cm] (04/04/2024 10:49) BMI: 33.4 POX: 98% (04/04/2024 10:49) Would you like to discuss any personal problem, family problem, alcohol use, drug use, or a mental or emotional illness? No Contact provided Primary Care phone number and encouraged to call if any questions or concerns. Review that after hours nurse line [phone] and emergency room are available 15/02 for patient use. Contact verbalized good understanding. Homelessness/Food Insecurity Screen: The reports the following: Currently, you don't have enough money to get food OR you are worried that your food will run out before you get money to buy more. No Depression Screening: Perform PHQ-2 A PHQ-2 screen was performed. The score was 4 which is a positive screen for depression. Over the past two weeks, how often have you been bothered by the following problems? 1. Little interest or pleasure in doing things More than half the days 2. Feeling down, depressed, or hopeless More than half the days Licensed Independent Provider notified of positive screen and need for follow-up. Name of provider notified: Joy felipe/ JOHNNY BERMUDEZ LPN LICENSED PRACTICAL NURSE Signed: 04/04/2024 10:57 JOHNNY BERMUDEZ [facility]
--- OUTSIDE RECORDS SUMMARY | 2024-09-27 08:20 | XMS_ITS ---
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 Date/Time Primary/Secondary Diagnosis Diagnosis Name Provider Source December 13, 2023 01:58 PM PRIMARY Type 2 diabetes mellitus with unspecified complications JEREMIAH POST [facility] December 13, 2023 01:58 PM SECONDARY Essential (primary) hypertension JEREMIAH POST [facility] December 13, 2023 01:58 PM SECONDARY Hyperlipidemia, unspecified JEREMIAH POST [facility] Plan of Treatment: Future Appointments (+ 6 months) and Future Tests (+/- 45 days) The Plan of Treatment section includes future care activities for the patient from all [place] [facility]. This section includes future appointments and future orders which are active, pending or scheduled. Future Appointments This section includes appointments that were scheduled to occur 6 months from the date of the Encounter, up to a maximum of 20 appointments. The data comes from all [facility]. Appointment Date/Time Appointment Type Appointme nt Facility Name Jan 05, 2024 09:00 AM AMBULATORY - MEDICINE [facility] Feb 02, 2024 08:30 AM AMBULATORY - MEDICINE [facility] Mar 03, 2024 08:00 AM AMBULATORY - SURGERY [facility] Mar 06, 2024 08:30 AM AMBULATORY - MEDICINE [facility] Apr 04, 2024 11:00 AM AMBULATORY - MEDICINE [facility] Apr 04, 2024 11:30 AM AMBULATORY - MEDICINE [facility] Apr 10, 2024 08:30 AM AMBULATORY - MEDICINE [facility] Apr 11, 2024 02:15 PM AMBULATORY - MEDICINE [facility] Apr 26, 2024 10:00 AM AMBULATORY - SURGERY [facility] May 02, 2024 11:00 AM AMBULATORY - MEDICINE [facility] May 09, 2024 10:40 AM AMBULATORY - NONE [facility] May 29, 2024 11:00 AM AMBULATORY - MEDICINE [facility] Jun 13, 2024 01:00 PM AMBULATORY - MEDICINE [facility] Active, Pending, and Scheduled Orders This section includes a listing of several types of active, pending, and scheduled orders, including clinic medications orders, diagnostic test orders, procedure orders and consult orders; where the start date of the order is 45 days before the date of the Encounter or 45 days after the date of theEncounter. The data comes from all [facility]. Test Date/Time Test Type Test Details Facility Name December 22, 2023 12:00 AM Laboratory - Chemi stry Order CBC BLOOD SP [facility] December 22, 2023 12:00 AM Laboratory - Chemi stry Order BASIC METABOLIC PANEL GREEN LI/HEP BLD/PLAS PLASMA SP [facility] Lab Results: +/- 30 days of the encounter This section includes the Chemistry and Hematology Lab Results on record with [place] for the patient. Radiology Reports and Pathology Reports are provided separately, in subsequent sections. Lab Results This section contains the Chemistry/Hematology Results that were resulted 30 days before or 30 daysafter the date of the Encounter. Date/Time Source Result Type Result - Unit Interpretation Reference Range Comment November 30, 2023 11:33 AM [facility] URINALYSIS (STL-PB) Specimen Type: URINE Comment: High concentrations of glucose and protein affect specific gravity. Therefore, specific gravity is corrected using the concentrations of glucose and protein obtained from test strip measurement. Very high concentrations of glucose (>1000 mg/dL) or protein (>600 mg/dL) in the urine may affect the reliability of the specific gravity results. Clinical correlation is suggested. Ordering Provider: SWAPNA JUNG Report Released Date/Time: November 29, 2023 11:50 AM Reporting Lab: [facility] [address] [place] [address] Performing Lab: [facility] [address] [facility] [address] URINE COLOR Yellow Yellow U.BILIRUBIN Negative mg/dL Negative U.PH 5.5 5.0-8.0 URINE WBC/HPF 2 /[HPF] 0-5 URINE RBC/HPF 2 /[HPF] 0-5 APPEARANCE Clear Clear U.NITRITE Negative mg/dL Negative SQUAMOUS EPITH. 1 /[HPF] 0-5 MUCUS RARE /[LPF] Negative -Ra re HYALINE CASTS 32 /[LPF] 0-5 URN.GLUCOSE > mg/dL H Negative URN.PROTEIN 30 mg/dL H Negative-20 URN.UROBILINOGE N Normal mg/dL Normal URN.BLOOD Negative mg/dL Negat courtney-Tr brandan URN.KETONES Trace mg/dL Negati ve-Tr brandan URN.LEUK.EST. Negative mg/dL N egative-Tr brandan URN.SPECIFIC GRAVITY 1.036 H 1.005-1.029 November 30, 2023 11:23 AM [facility] HGA1C Specimen Type: BLOOD No comment entered. Ordering Provider: SWAPNA JUNG Report Released Date/Time: November 29, 2023 11:50 AM Reporting Lab: [address] [address] Performing Lab: [address] [address] HGA1C 10.9 H 4.0-6.0 November 30, 2023 11:23 AM [facility] TSH W/ REFLEX FT4 (STL) Specimen Type: PLASMA Comment: No hemolysis noted. Ordering Provider: SWAPNA JUNG Report Released Date/Time: November 29, 2023 11:50 AM Reporting Lab: [address] [address] Performing Lab: [address] [address] TSH 0.829 u[IU]/mL 0.47-5 November 30, 2023 11:23 AM [facility] COMPREHENSIVE METABOLIC PANEL Specimen Type: PLASMA Comment: No hemolysis noted. Ordering Provider: SWAPNA JUNG Report Released Date/Time: November 29, 2023 11:50 AM Reporting Lab: [address] [address] Performing Lab: [address] [address] CREATININE 1.50 mg/dL H 0.6-1.1 UREA NITROGEN 26.8 mg/dL H 9.0-25.0 GLUCOSE 386 mg/dL H 72-99 SODIUM 132 meq/L L 136-145 POTASSIUM 3.9 meq/L 3.5-5 CHLORIDE 97 meq/L L 98-107 CARBON DIOXIDE 26 meq/L 22-31 CALCIUM 10.2 mg/dL 8.4-10.4 PROTEIN 7.4 g/dL 6-8.6 ALBUMIN 4.2 g/dL 3.4-5 TOTAL BILIRUBIN 0.4 mg/dL 0.2-1.2 ALKALINE PHOSPHATASE 134 U/L 40-150 AST/SGOT 17 U/L 5-34 ALT/SGPT 30 U/L 8-40 EGFR (CKD-EPI 2020) 39.9 >60 November 30, 2023 11:23 AM [facility] CBC Specimen Type: BLOOD Comment: CELL DIFFERENTIAL OBTAINED FROM ALBUMIN SLIDE. Ordering Provider: SWAPNA JUNG Report Released Date/Time: November 29, 2023 11:50 AM Reporting Lab: [facility] [address] [place] [address] Performing Lab: [facility] [address] [facility] [address] WBC 15.9 10*3/uL H 3.6-11.2 RBC 4.92 10*6/uL 3.60-5.00 HGB 13.3 g/dL 11.0-14.9 HCT 41.2 32.6-43.4 MCV 83.7 fL 80.0-100.0 MCH 27.0 pg 27.0-34.0 MCHC 32.3 g/dL L 33.0-36.0 PLT 218 10*3/uL 150-400 MPV 11.8 fL H 7.5-11.2 RDW 13.0 11.8-15.1 NEUTROPHILS 24.8 MONOCYTES 7.7 EOSINOPHILS 1.7 BASOPHILS 0.8 PAPPENHEIMER BODIES 0 LYMPHOCYTES 57.3 ATYPICAL LYMPHOCYTES 7.7 STOMATOCYTES 1+ PLT EST-CV ADEQUATE ADEQUATE BASO#-MDIFF 0.13 10*3/uL 0.01-0.20 EO#-MDIFF 0.27 10*3/uL 0.00-0.60 MONO#-MDIFF 1.22 10*3/uL H 0.19-0.80 LYMPH#-MDIFF 10.34 10*3/uL H 0.77-4.50 NEUT#-MDIFF 3.94 10*3/uL 2.10-8.00 November 29, 2023 11:38 AM [facility] GLUCOSE,BLOOD-poct (STL) Specimen Type: BLOOD Comment: Test Performed by: [id number] Meter #: [id number] Ordering Provider: SWAPNA JUNG Report Released Date/Time: November 29, 2023 03:56 PM Reporting Lab: [facility] [address] [facility] [address] Performing Lab: [facility] [address] [place] [address] GLUCOSE,BLOOD-p oct (STL) 358 mg/dL H 72-99 Vital Signs: All taken on the encounter date This section contains inpatient and outpatient Vital Signs collected on the date of the Encounter. Date/Time Temperature Pulse Blood Pressure Respiratory Rate SP02 Pain Height Weight Body Mass Index Source December 13, 2023 12:00 PM 61 97/68 [facility] Social History: Smoking Status (Most current) and Tobacco Use (All prior to encounter date) This section includes the most current, and the historical, smoking and tobacco- related health factors from the [place] facility where the Encounter took place. Current Smoking Status This section includes the most current smoking, or tobacco-related health factor, from the [place] facility where the Encounter took place. Date/Time Current Smoking Status Comment Facil ity May 28, 2023 02:00 PM VA-TOBACCO NEVER USED [facility] Tobacco Use History This section includes a history of the smoking, or tobacco-related health factors, that were collected on or before the date of the Encounter. The data comes from the [place] facility where the Encounter took place. Date/Time Smoking Status/Tobacco Use Comment F acility May 29, 2022 03:00 PM VA-TOBACCO NEVER [facility]ED [facility] Mar 21, 2021 11:30 AM VA-TOBACCO NEVER [facility]ED [facility] Oct 24, 2019 09:17 AM VA-TOBACCO [facility]ED [facility] Aug 08, 2018 02:11 PM VA-TOBACCO [facility]ED [facility] Mar 02, 2017 02:54 PM LIFETIME NON-USER OF TOBAC CO . [facility] Feb 12, 2017 03:17 PM LIFETIME NON-USER OF TOBACCO [facility] Feb 10, 2017 09:17 AM LIFETIME NON-USER OF TOBACCO [facility] Jul 09, 2016 03:17 PM LIFETIME NON-USER OF TOBACCO [facility] Sep 27, 2015 02:47 PM LIFETIME NON-USER OF TOBACCO [facility] November 28, 2014 02:10 PM LIFETIME NON-USER OF TOBACCO [facility] Advance Directives: All historical and current Section Date Range: From patient's date of to the date document was created. This section includes ALL of a patient's completed or amended [place] Advance and Rescinded Directives. The entries below indicate that a directive exists for the patient, but an actual copy is not included with this document. The data comes from all [place] facilities. Date Advance Directives Provider Source Sep 17, 2014 ADVANCE DIRECTIVE DISCUSSION TAMMIE GARDNER [facility] Radiology Reports: +/- 30 days of [...] the Encounter. The data comes from all [place] treatment facilities. Date/Time Radiology Report Provider Source November 30, 2023 10:59 AM CHEST X-RAY, 2 VIE WS: AMBER WIN RUCHI [id number] -[id number] F Exm Date: NOVEMBER 30, 2023@10:59 Req Phys: SWAPNA JUNG Pat Loc: [facility] PACT 3 PCP (Req'g L Img Loc: -MAIN RADIOLOGY SUITE Service: [facility] [address] [place] [address] (Case [id number] COMPLETE) CHEST X-RAY, 2 VIEWS (RAD Detailed) CPT:41760 Reason for Study: Cough and chest congestion Clinical History: Cough and chest congestion Report Status: Verified Date Reported: NOVEMBER 30, 2023 Date Verified: NOVEMBER 30, 2023 Subscription Agent E-Sig:/ES/ZAIDA WINSLOW MD Report: PA and lateral chest x-ray Comparison: none Heart: No significant pathology Lungs: No significant pathology. Mediastinum: No significant pathology Pulmonary vasculature: Within normal limits. Other: Impression: No acute disease Primary Interpreting Staff: ZAIDA WINSLOW MD, Radiologist (Subscription Agent) /ZAIDA HENDRICKS [facility] Encounter Notes: All associated encounter notes This section contains the clinical notes associated to the Encounter. Date/Time Encounter Note(s) Provider Source December 14, 2023 07:29 AM PHARMACY NOTE: LOCAL TITLE: V15-CGM QUALIFICATION NOTE STANDARD TITLE: PHARMACY NOTE DATE OF NOTE: DECEMBER 14, 2023@07:29 ENTRY DATE: DECEMBER 14, 2023@07:29:29 AUTHOR: OSIEL POST COSIGNER: URGENCY: STATUS: COMPLETED New CGM Start Criteria For Issuance: - has been diagnosed with diabetes OR a condition that significantly increases the risk of hypoglycemia (e.g. post-gastrectomy, paraneoplastic syndromes, reactive hypoglycemia). *Note: for indications other than diabetes, use of a CGM may be considered on a ansb-pq-liok basis, following evaluation by Endocrinology. - The has the knowledge and skills necessary to successfully use a CGM device, including an understanding of the need to do fingerstick testing for calibration to evaluate high or low blood glucose results or trends based upon readings and/or alarms. - The Gaines or caregiver have received, or will be scheduled to receive, CGM device education. - The has followed clinician recommendations for glucose testing and medication adherence. - The agrees to ongoing medical appointments with the multidisciplinary team no later than three months initially, then at least every six months thereafter, to assess the adherence and benefit derived from the CGM device. Gaines does meet all of the Main Criteria listed above. The has diabetes,is being treated with daily insulin, and is not achieving desired glycemic targets. * Gaines's Target A1C Range: 6.0 - 7.0% * The following is required for continued use of a CGM: - The should have an initial follow-up appointment within 3 months of starting the CGM, then at least every 6 months thereafter. - Follow-up appointments must be conducted and documented in the Gaines's electronic medical record. This follow-up may occur in the clinic, via video, phone call or secure messaging. - Reevaluation of the continued use of a the CGM device can be considered if there is no improvement in glycemic targets or hypoglycemia events, or if the is not adherent with CGM device usage.Adherence with clinic appointments, treatment recommendations and calibration requirements should be considered as well. CGM Product Chosen: Saenz Freestyle Carroll 3 /es/ Osiel Post, Sabina.D. Clinical Pharmacist Signed: 12/14/2023 07:31 OSIEL POST [facility] December 13, 2023 10:47 AM INTERNAL MEDICINE CLINICAL PHARMACIST MEDICATION MGT NOTE: LOCAL TITLE: CLINICAL PHARMACIST NOTE [facility] STANDARD TITLE: INTERNAL MEDICINE CLINICAL PHARMACIST MEDICATION DATE OF NOTE: DECEMBER 13, 2023@10:47 ENTRY DATE: DECEMBER 13, 2023@10:47:29 AUTHOR: OSIEL POST EXP COSIGNER: URGENCY: STATUS: COMPLETED CLINICAL PHARMACY CONSULT Subjective: AMBER WIN is a 58 yo, BLACK OR , FEMALE presents for initial visit to clinical pharmacy for consult for management of DM. A1C > 10, need close follow up for optimal control of diabetes. Thanks -Diabetes, per last labs A1c was 7.4, blood sugars are running higher most probably due to oral steroid Recommend to start on the fast acting insulin per sliding scale Patient refused Offer referral to ER for IV fluids could be tried due to her elevated sugar Patient refused Check labs today and follow accordingly Again and stressed to proceed to ER if symptoms get worse Continue current dose of alogliptin and Lantus Follow patient in a.m. 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< (SNOMED CT 310110497) 19) Asthma (SNOMED CT 036463379) 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 Vet has also not been eating so has lost some weight and having hot flashes at nighttime. Vet reports having no taste when eat and no appetitie to eat anything so has to force self to eat. Vet is very thirsty so also knows SMBG out of whack. Vet is more bed ridden as well. Past DM/HLD/HTN medication trials: -metformin: headache -empagliflozin: rash Diet: eating 1 meal per day Breakfast: cereal, oatmeal Dinner: chicken noodle soup, tuna fish sandwiches Snack: apple, popcorn ROS: DM (-) hypoglycemia symptoms or values <80 mg/dL (-) hyperglycemia symptoms (-) tingling/numbness HLD (-) muscle pain/cramps HTN (-) hypotension symptoms or value <90/60 mmHg (-) orthostasis (-) edema (-) cough (-) visual complaints (-) TIA symptoms (-) chest pain (-) NGUYEN Objective: Allergies: EGGS, METFORMIN, EMPAGLIFLOZIN, PENICILLIN - Verified with patient today Medications: Active and Recently Outpatient Medications (excluding Supplies): Active Outpatient Medications Status 1) ALBUTEROL 90MCG (CFC-F) 200D ORAL INHL INHALE 2 PUFFS ACTIVE ORAL INHALATION FOUR TIMES A DAY FOR ASTHMA SHAKE WELL. RINSE MOUTHPIECE FREQUENTLY TO PREVENT CLOGGING. - taking - mold/mildew/heat = sneezing - 1x/day 2) ALOGLIPTIN 25MG TAB TAKE ONE TABLET BY MOUTH ONCE A ACTIVE DAY TO LOWER BLOOD SUGAR - Taking 3) ATORVASTATIN CALCIUM 40MG TAB TAKE ONE-HALF TABLET BY ACTIVE MOUTH EVERY EVENING TO LOWER CHOLESTEROL - Taking full tablet PO qAM 4) BENZONATATE 100MG CAP TAKE ONE CAPSULE BY MOUTH THREE ACTIVE TIMES A DAY NEEDED - Taking BID 5) CAMPHOR 0.5/MENTHOL 0.5% LOTION APPLY LIBERALLY TO ACTIVE AFFECTED AREA(S) NEEDED FOR ITCHING - (EXTERNAL USE ONLY) - Taking 6) CETIRIZINE HCL 10MG TAB TAKE ONE TABLET BY MOUTH ONCE ACTIVE A DAY TAKE DAILY FOR ITCH AND ALLERGIES - Taking 7) CITALOPRAM HYDROBROMIDE 40MG TAB TAKE ONE TABLET BY ACTIVE MOUTH EVERY MORNING FOR DEPRESSION - Taking half pill PO daily 8) DOXYCYCLINE HYCLATE 100MG TAB TAKE ONE TABLET BY ACTIVE MOUTH TWICE A DAY WITH A FULL MEAL AND GLASS OF WATER. -Taking 9) FLUTICASONE PROP 50MCG 120D NASAL INHL INSTILL 2 ACTIVE SPRAYS IN NOSTRIL(S) ONCE A DAY (MUST BE USED DIRECTED FOR MINIMUM OF 21 DAYS TO PROVIDE ADEQUATE BENEFITS) - PRN 10) GLIMEPIRIDE 4MG TAB TAKE ONE TABLET BY MOUTH ONCE A ACTIVE DAY FOR DIABETES WITH FOOD - Taking at breakfast (biggest meal breakfast) - new per patient; started when got in mail ~1 week now 11) HCTZ 12.5/LISINOPRIL 10MG TAB TAKE 1 TABLET BY MOUTH ACTIVE EVERY MORNING FOR HEART OR BLOOD PRESSURE - Taking 12) INSULIN,GLARGINE-YFGN 100UNIT/ML PEN 3ML INJECT 40 ACTIVE UNITS UNDER THE SKIN AT BEDTIME FOR BLOOD SUGAR CONTROL. ADMINISTER AT SAME TIME EACH DAY DIRECTED. DISCARD ANY OPEN CARTRIDGE AFTER 28 DAYS. - 40 units QHS 13) POTASSIUM CL 20MEQ SA TAB (DISPERSIBLE) TAKE ONE-HALF ACTIVE TABLET BY MOUTH ONCE A DAY FOR POTASSIUM SUPPLEMENTATION TAKE WITH FOOD - Taking full tablet PO daily instead 14) TACROLIMUS 0.1% TOP OINT APPLY LIGHTLY TO AFFECTED ACTIVE AREA(S) ONCE A DAY FOR FACE (EXTERNAL USE ONLY) - Taking Active Non-VA Medications Status 1) Non-VA ASPIRIN 81MG EC TAB 81MG BY MOUTH ONCE A DAY ACTIVE NEEDED - regular aspiring PRN once a week for pain and thin blood 2) Non-VA MULTIVITAMIN CAP/TAB 1 TABLET BY MOUTH ONCE A ACTIVE DAY - Taking 16 Total Medications meds: - cholecalciferol PO daily - hydocortisone cream - sulfazalamide BID for back and face OTC/Non-VA meds: Medication reconciliation completed: YES Adherence to above medications: take pills, not taking shot at night when sick. Labs: CMP: SODIUM 132 L mEq/L 11/30/2023 11:23 [...] 11:23 EGFR (CKD-EPI 2020) 39.9 11/30/2023 11:23 FLP: Lipid Panel: TRIGLYCERIDE 83 mg/dL 06/10/2023 08:40 CHOLESTEROL 172 mg/dL 06/10/2023 08:40 HDL(New) 66 mg/dL 06/10/2023 08:40 CALCULATED LDL 89 mg/dL 06/10/2023 08:40 MICRAL/CR PROFILE: CREATuF: 326.8 (06/10/23 08:40) M/CREAT: 4 (06/10/23 08:40) MICRAL: 13.8 (06/10/23 08:40) A1c: HGA1C 10.9 H % 11/30/2023 11:23 HGA1C 7.4 H % 06/10/2023 08:40 HGA1C 6.0 % 11/26/2022 09:08 HGA1C 11.5 H % 09/04/2022 19:00 HGA1C 7.6 H % 12/08/2021 08:30 TSH: TSH 0.829 uIU/mL 11/30/2023 11:23 Vitamin D: VITAMIN D, 25-HYDROXY 53.9 ng/mL 06/10/2023 08:40 Self-Monitoring of Blood Glucose (SMBG): 1x in AM daily -average: 500s fasting Home Readings: not testing but has machine BP last visit:114/75 (11/29/2023 11:08) Pulse last visit: 95 (11/29/2023 11:08) Assessment/Plan: 1) Diabetes - Goal A1c <7%, FBG 80-130, post-prandial BG <180, per VA/DoD and ADA guidelines Uncontrolled to goal A1c. Home SMBGs above goal on average. Vet taking high dose basal insuln. Vet also taking alogliptin and glimepiride. Denies ADRs. S.Cr elevated and eGFR <45 so avoiding biguanide. Also avoiding SGLT2i d/t ADR rash. Will have start taking bolus insulin before meals and order CGM for further glycemic monitoring. Educated vet on purpose of bolus vs. basal insulin and why it is important to take both to prevent highs/lows pattern. In the future, if further glycemic control needed, could consider adjusting insulin as needed and would try to decrease off sulfonylurea. Could also consider GLP1 next if vet meets qualifications. - START insulin aspart 5 units TID BEFORE meals - continue insulin glargine 40 units QHS - continue alogliptin 25mg PO daily - continue glimepiride 4mg PO daily (breakfast) - Check SMBGs daily ideally alternating times (fasting and 2hPP) - Ordered CGM device + reader - educated vet on hypoglycemia symptoms and appropriate treatment and when to contact clinic or go to emergency room - Labs: Next A1c due 03/01/24, Next micral/creat due 05/2024 - opto: 03/04/23: Diabetes without retinopathy, OU- DUE - podiatry: DUE 2) HLD - Goal is treatment with mod-intensity statin d/t DM per VA/DoD guidelines; mod-intensity statin per ACC/AHA guidelines d/t DM for primary prevention. Currently meeting VADoD/ACC/AHA statin recommendations. Vet denies ADRs, LFTs WNL, and S.Cr stable. Lipid panel WNL and LDL >70 but <100mg/dL. Will continue current therapy today and vet to work on lifestyle modification (diet/exercise) to help decrease LDL further. Will continue to monitor. - continue atorvastatin 40mg PO daily - monitor for myalgias and report to CP or PCP if occurs - Labs: Next lipid panel due 05/2024, LFTs UTD 3) HTN - Goal <130/80 mmHg per 2017 AHA guidelines; <140/90 mmHg per JNC8 guidelines; <140-150/85 mmHg per VADoD guidelines Controlled to goal BP during last clinic visit reading. Unable to assess home BP readings. Vet on low dose thiazide diuretic and low dose ACEI. Vet denies ADRs. S.Cr elevated but stable. K+ WNL and Na+ slightly low - will monitor closely with diuretic. Vet to increase hydration. Will continue current therapy since controlled to goal. - continue HCTZ/Lisinopril 12.5/10 PO daily - BP: Test 3x/week and bring log to next apt - Labs: UTD - Instructed vet to call CP if SBP >160 sustained or DBP >100 sustained; Instructed vet to present to ER if SBP >180 sustained or DBP >120 sustained and/or if symptoms present (chest pain, headache, vision changes, numbness, etc.) - Educated vet on risks/benefits of all medications during med rec. - Educated vet on risks/benefits of new medication. - Education provided on nonpharmacologic ways to improve DM/HLD/HTN (including lifestyle management/dietary/physical activity) specific for the vet's needs. - Gaines verbalized understanding to all plans discussed today. Questions were answered to vet's satisfaction. - Gaines provided with phone number and instructed to call with any questions or concerns before next follow-up. Time spent with vet: 60 min RTC: ~4 weeks via F2F (sent to front desk manager) [facility] [employer] Pharmacotherapy Rem V12: PHARMACIST INTERVENTIONS: HYPERTENSION Medication monitoring, no dosage change required, continue to monitor and assess LIPID MANAGEMENT Medication monitoring, no dosage change required, continue to monitor and assess TYPE 2 DIABETES MELLITUS Medication Intervention(s) Initiate new medication Medication monitoring, no dosage change required, continue to monitor and assess Medication reconciliation (changes to active VA and non-VA medication lists to reconcile differences) Changes to medication lists made Update dose, frequency, duration and/or dosage form of medication Plan: statin /es/ Osiel Post, Pharm.D. Clinical Pharmacist Signed: 05/01/2024 18:16 [facility]
--- OUTSIDE RECORDS SUMMARY | 2024-09-27 08:20 | XMS_ITS | Encounter Summary ---
Author Name [facility] [place] [facility] [place] Address [address] [place] [address] Care Team Providers Care Public Works Inspector Name Role Phone ERICH SWAPNA Primary Care Provider Unavailab le Insurance Providers: [...] section includes the information on record at [place] for the Encounter. Date/Time Encounter Type Encounter Description Reason Provider Source Oct 29, 2023 08:30 AM OFFICE O/P EST HI 40 MIN ORTHO/JOINT SURG ICD-10-CM G56.21 Lesion of ulnar nerve, right upper limb GARCIA DUNBAR [facility] Encounter Template Text not used by [place] Assessments - Encounter Diagnoses This section includes the primary and secondary diagnoses documented for the Encounter. Date/Time Primary/Secondary Diagnosis Diagnosis Name Provider Source Oct 29, 2023 05:30 PM PRIMARY Lesion of ulnar nerve, right upper limb GARCIA DUNBAR [facility] Plan of Treatment: Future Appointments (+ 6 months) and Future Tests (+/- 45 days) The Plan of Treatment section includes future care activities for the patient from all [place] [facility]. This section includes future appointments and future orders which are active, pending or scheduled. Future Appointments This section includes appointments that were scheduled to occur 6 months from the date of the Encounter, up to a maximum of 20 appointments. The data comes from all [place] treatment facilities. Appointment Date/Time Appointment Type Appointme nt Facility Name November 29, 2023 11:00 AM AMBULATORY - MEDICINE [facility] December 13, 2023 12:00 PM AMBULATORY - MEDICINE [facility] Jan 05, 2024 09:00 AM AMBULATORY - MEDICINE [facility] Feb 02, 2024 08:30 AM AMBULATORY - MEDICINE [facility] Mar 03, 2024 08:00 AM AMBULATORY - SURGERY [facility] Mar 06, 2024 08:30 AM AMBULATORY - MEDICINE [facility] Apr 04, 2024 11:00 AM AMBULATORY - MEDICINE [facility] Apr 04, 2024 11:30 AM AMBULATORY - MEDICINE [facility] Apr 10, 2024 08:30 AM AMBULATORY - MEDICINE [facility] Apr 11, 2024 02:15 PM AMBULATORY - MEDICINE [facility] Apr 26, 2024 10:00 AM AMBULATORY - SURGERY [facility] Vital Signs: All taken on the encounter date This section contains inpatient and outpatient Vital Signs collected on the date of the Encounter. Date/Time Temperature Pulse Blood Pressure Respiratory Rate SP02 Pain Height Weight Body Mass Index Source Oct 29, 2023 08:22 AM 97 87 153/78 16 98 7 59 181.8 37 [facility] Social History: Smoking Status (Most current) and Tobacco Use (All prior to encounter date) This section includes the most current, and the historical, smoking and tobacco- related health factors from the [place] facility where the Encounter took place. Current Smoking Status This section includes the most current smoking, or tobacco-related health factor, from the [place] facility where the Encounter took place. Date/Time Current Smoking Status Tommie frazier Feb 06, 2014 01:50 PM LIFETIME NON-USER OF TOBACCO [facility] Tobacco Use History This section includes a history of the smoking, or tobacco-related health factors, that were collected on or before the date of the Encounter. The data comes from the [place] facility where the Encounter took place. Date/Time Smoking Status/Tobacco Use Comment F acility Apr 10, 2013 02:18 PM LIFETIME NON-USER OF TOBACCO [facility] May 06, 2007 08:25 AM LIFETIME NON-USER OF TOBACCO [facility] Advance Directives: All historical and current Section Date Range: From patient's date of to the date document was created. This section includes ALL of a patient's completed or amended [place] Advance and Rescinded Directives. The entries below indicate that a directive exists for the patient, but an actual copy is not included with this document. The data comes from all [place] facilities. Date Advance Directives Provider Source Sep 17, 2014 ADVANCE DIRECTIVE DISCUSSION TAMMIE GARDNER [facility] Encounter Notes: All associated encounter notes This section contains the clinical notes associated to the Encounter. Date/Time Encounter Note(s) Provider Source Oct 29, 2023 08:23 AM ORTHOPEDIC SURGERY NOTE: LOCAL TITLE: ORTHOPEDIC ST STANDARD TITLE: ORTHOPEDIC SURGERY NOTE DATE OF NOTE: OCT 29, 2023@08:23 ENTRY DATE: OCT 29, 2023@08:23:34 AUTHOR: GARCIA DUNBAR COSIGNER: URGENCY: STATUS: COMPLETED 58 year old FEMALE right hand and forearm pain and dysesthesias. She states she has this for over a year but patient had EMG/NCV in 2014 for pre-existing dysesthesias in the right upper extremity. [id number]-rhoy-[id number]. Pain is more significant than numbness. Dysesthesias involve the small and ring finger. She states she cannot straighten any finger and does so with pain. She attributes her hand pain to demands of typing. She used [place] splints during daytime. Recently provided with cubital tunnel night splints and gliding exercises. Her hands awaken her from sleep. Patient states she had a cyst removed from left wrist few years ago in private sector. That was successful. However she does have discomfort without numbness of the left upper extremity as well. The pain in the right upper extremity involves all fingers of the hand the wrist and radiates up the forearm. Predominantly located over proximal lateral forearm. She points towards dorsal forearm radiating from the wrist in the direction of the lateral condyle. Insulin dependent diabetic. Medical conditions: 1) Obesity (SNOMED CT 380145475) 2) 599 3) Acute pharyngitis 4) Chronic back pain (SNOMED CT 263140681) 5) Dermatophytosis of foot (ICD-9-CM 110.4) 6) Asthma * (ICD-9-CM 493.90) 7) Knee pain (SNOMED CT 0781884385) 8) Psychotic Disorder NOS 9) Chronic Low Back Pain (ICD-9-CM 724.2) 10) Asthma (SNOMED CT 887102253) 11) Benign essential hypertension (SNOMED CT 3117830) 12) Anxiety Disorder NOS 13) Chronic anxiety (SNOMED CT 552537170) 14) Muscle Spasm (ICD-9-CM 728.85) 15) Breast Mass (ICD-9-CM 611.72) 16) OA - Osteoarthritis (SNOMED CT 766607863) 17) Hypokalemia * (ICD-9-CM 276.8) 18) 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< (SNOMED CT 589671633) 19) Asthma (SNOMED CT 585853953) 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 21) CTS - Carpal tunnel syndrome (SNOMED CT 00220229) 22) Lateral Epicondylitis (Tennis Elbow) (ICD-9-CM 726.32) 23) Depression (SNOMED CT 72899422) 24) Impaired glucose tolerance (SNOMED CT 3200470) 25) Sleep apnea syndrome (SNOMED CT 00825105) 26) Ganglion of wrist 27) Rotator Cuff Syndrome 28) Shoulder pain (SNOMED CT 09179460) 29) Diabetes mellitus 30) Hyperlipidemia 31) Acute [...] of right great toe 46) Wrist pain Medications:MRT1 - Med Reconciliation OUTPT ALOGLIPTIN 25MG TAB (Status = Active) TAKE ONE TABLET BY MOUTH ONCE A DAY TO LOWER BLOOD SUGAR Rx# [id number] Last Released: 06/10/23 Qty/Days Supply: Rx Expiration Date: 02/09/24 Refills Remainin Non-VA ASPIRIN 81MG EC TAB OUTPT ATORVASTATIN CALCIUM 40MG TAB (Status = Active) TAKE ONE-HALF TABLET BY MOUTH EVERY EVENING TO LOWER CHOLESTEROL Rx# [id number] Last Released: 09/24/22 Qty/Days Supply: Rx Expiration Date: 08/30/23 Refills Remainin OUTPT CAMPHOR 0.5/MENTHOL 0.5% LOTION (Status = Active) OUTPT CETIRIZINE HCL 10MG TAB (Status = Discontinued) OUTPT CHOLECALCIF 50MCG (D3-2,000UNIT) TAB (Status = Active) OUTPT CITALOPRAM HYDROBROMIDE 40MG TAB (Status = Active) TAKE ONE TABLET BY MOUTH EVERY MORNING FOR DEPRESSION Rx# [id number] Last Released: 06/04/23 Qty/Days Supply: Rx Expiration Date: 09/25/23 Refills Remainin Indication: FOR DEPRESSION OUTPT DICLOFENAC NA 1% TOP GEL (Status = Active) OUTPT GLIMEPIRIDE 4MG TAB (Status = Active) TAKE ONE TABLET BY MOUTH ONCE A DAY FOR DIABETES WITH FOOD Rx# [id number] Last Released: 06/04/23 Qty Supply: Rx Expiration Date: 10/24/23 Refills Remainin Indication: FOR DIABETES OUTPT HCTZ 12.5/LISINOPRIL 10MG TAB (Status = Active) TAKE 1 TABLET BY MOUTH EVERY MORNING FOR HEART OR BLOOD PRESSURE Rx# [id number] Last Released: 06/04/23 Qty/Days Supply: Rx Expiration Date: 08/30/23 Refills Remainin OUTPT HYDROCORTISONE 2.5% CREAM (Status = Active) OUTPT INSULIN,GLARGINE-YFGN 100UNIT/ML PEN 3ML (Status = Active) INJECT 40 UNITS UNDER THE SKIN AT BEDTIME FOR BLOOD SUGAR CONTROL. ADMINISTER AT SAME TIME EACH DAY DIRECTED. DISCARD ANY OPEN CARTRIDGE AFTER 28 DAYS. Rx# [id number] Last Released: 01/21/23 Qty/Days Supply: Rx Expiration Date: 10/24/23 Refills Remainin Indication: FOR DIABETES Non-VA MULTIVITAMIN CAP/TAB OUTPT POTASSIUM CL 20MEQ SA TAB (DISPERSIBLE) (Status = Active) TAKE ONE-HALF TABLET BY MOUTH ONCE A DAY FOR POTASSIUM SUPPLEMENTATION TAKE WITH FOOD Rx# [id number] Last Released: 09/01/22 Qty/Days Supply: Rx Expiration Date: 08/30/23 Refills Remainin OUTPT SULFACETAMIDE NA 10% TOP SUSP (Status = Active) OUTPT TACROLIMUS 0.1% TOP OINT (Status = Active) Patient has known Allergies as noted:EGGS, METFORMIN, EMPAGLIFLOZIN ROS: negative for recent illness or contributory health elements FH: non-contributory PHYSICAL EXAMINATION A&OX3 NAD well nourished well developed woman mood is pleasant and appropriate ambulation: unassisted hearing:normal to speech skin intact MUSCULOSKELETAL EXAM: The hallmark of this examination is hyperalgesia to any physical contact with the right upper extremity. This includes all digits, hand wrist and forearm. There is no area palpated or examined that did not produce discomfort on palpation. Most notable areas of tenderness or the first dorsal compartment; the right wrist, the dorsum of the right hand, and the dorsal lateral right proximal forearm distally. Motion of fingers is performed gingerly but she is able to flex to reach distal palmar flexion crease. There is no digital triggering thumb fingers. Patient has negative elbow flexion test ulnar nerve does not sublux. Negative Phalen's negative Jesus's negative Tinel's. Abnormal Jeff. Normal Glenn test. At her prior examination she had weakness in interossei. Today there is no weakness in interossei normal opposition and negative Froment. She has normal Glenn test. RADIOGRAPHS: Right hand films demonstrate long finger DIP arthrosis, no significant MCP or PIP disease, no wrist abnormalities. Prior wrist films do demonstrate mild scapholunate widening but it is under 3 mm. 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 Specimen Collection Date: Jun 10, 2023@08:40 Test name Result units Ref. range Site Code HGA1C 7.4 H % 4.0 - 6.0 [657] EMG/NCV from 2014 is reviewed. This is interpreted as showing bilateral carpal tunnel syndrome both motor and sensory. Is also interpreted by edmond Chung for as demonstrating ulnar nerve slowing of conduction velocity. However the slowing is less than 20%. Ultrasound from radiology: Real-time scanning performed to identify the pisiform and ulnar artery at the wrist. The ulnar nerve was identified between these structures and its cross-sectional area measured. Scanning of the ulnar nerve was also performed above and below the wrist. At/near Guyon's canal, the nerve was noted to bifurcate, measurements of the primary nerve given below. No unusual osseous, cystic or soft tissue structures noted within Guyon's canal. Ulnar nerve cross-sectional area at the in Guyon's canal ranged from 3.72 - 4.25 mm2 with an average of 3.93 mm2. These values fall within range of normal. IMPRESSION: Thickened carpal tunnel retinaculum and increasing median nerve diameter from the pronator quadratus to the wrist crease potentially consistent with carpal tunnel syndrome in the appropriate clinical setting. Markedly thickened ulnar nerve within the cubital tunnel consistent with cubital tunnel syndrome in the appropriate clinical setting. Ulnar nerve cross-sectional area in Guyon's canal within normal limits. DIAGNOSIS: Patient has diffuse right greater than left upper extremity pain. There are a multitude of potential diagnoses but no one will explain all of her areas of discomfort. She appears to have de Quervain's tenosynovitis. She appears to have ulnar nerve compression at the elbow. Diffuse hand and wrist pain and hyperalgesia are without explanation. She may have element of diabetic neuropathy though A1c is acceptable at 7.4. Her dysesthesias are predominantly in ulnar distribution though diffuse, yet EMG/NCV from 2014 is not demonstrative of this diagnosis. Ultrasound is, however. PLAN: Based on the ultrasound results, the patient has cubital tunnel syndrome. We suggested decompression with transposition. However it is asserted that this measure alone will not resolve her major complaint which is diffuse hand and upper extremity pain rather than dysesthesias. It should be noted there are concerns regarding patient's ability to respond to surgery. Her examination was striking for diffuse hyperalgesia. It was difficult to conduct examination. Though quite pleasant, her diffuse hyperalgesia may prove refractory to surgical intervention. Patient would like another opinion. She is sent to plastic surgery. Should they wish to proceed with ulnar nerve transposition that section is advised to do so. /es/ GARCIA DUNBAR MD Staff Physician, Orthopedics Signed: 10/29/2023 17:30 GARCIA DUNBAR [facility]
--- OUTSIDE RECORDS SUMMARY | 2024-09-27 08:20 | XMS_ITS | Patient Health Summary ---
Author Organization [facility] Address [address] [place] [address] Care Team Providers Care Clinical Engineering Manager Name Role Phone Lucrecia Hamilton MD Primary Care Provider [phone] Note from [facility],non-owned Affiliates and Associated Physician Practices is amultiple site organization consisting of ambulatory clinics and hospital sitesin [place], [place], [place] and [place]. This disclosure is being madepursuant to the Care Everywhere program and may not contain all information available regarding this patient. Last updated 18.[facility] Allergies No known active allergies Medications * Be aware that medications may not be up to date on this document. Alwaysverify current medications with the patient. * traMADol (ULTRAM) 50 MG tablet(Started 06/30/2011) Take 1 Tab by mouth every 4 hours as needed for Pain. Social History Tobacco Use Types Packs/Day Years Used Date Smoking Tobacco: Never Alcohol Use Standard Drinks/Week Comments No 0 (1 standard drink = 0.6 oz pur e alcohol) Sex and Gender Information Value Date Recorded Sex Assigned at Not on file Gender Identity Not on file Sexual Orientation Not on file Last Filed Vital Signs Vital Sign Reading Time Taken Comments Blood Pressure 116/63 06/30/2011 10:58 AM SOFTWARE QUALITY TEST ENGINEER Pulse 72 06/30/2011 10:58 AM SOFTWARE QUALITY TEST ENGINEER Temperature 36.9 C (98.4 F) 06/30/2011 1:55 PM SOFTWARE QUALITY TEST ENGINEER Respiratory Rate 16 06/30/2011 10:58 AM SOFTWARE QUALITY TEST ENGINEER Oxygen Saturation 100% 06/30/2011 10:58 AM SOFTWARE QUALITY TEST ENGINEER Inhaled Oxygen Concentration - - Weight - - Height - - Body Mass Index - - Procedures * XR LUMBAR SPINE 2 OR 3VW(Performed 04/05/2024) Performed for Encounter for disability determination * XR FOOT RIGHT 3VW OR MORE(Performed 04/05/2024) Performed for Encounter for disability determination * XR SHOULDER RIGHT 2VW OR MORE(Performed 04/05/2024) Performed for Encounter for disability determination * VAS RIGHT VENOUS DUPLEX LE(Performed 06/30/2011) Performed for Right leg pain * MYOGLOBIN BLOOD - POINT OF CARE(Performed 06/30/2011) * B-TYPE NATRIURETIC PEPTIDE - POINT OF CARE(Performed 06/30/2011) * TROPONIN - POINT OF CARE(Performed 06/30/2011) * CKMB - POINT OF CARE(Performed 06/30/2011) * XR CHEST 2VW(Performed 06/30/2011) Performed for Chest pain * HCG URINE QUALITATIVE - POINT OF CARE(Performed 06/30/2011) * COMPREHENSIVE METABOLIC PANEL(Performed 06/30/2011) * CBC W AUTO DIFFERENTIAL(Performed 06/30/2011) * EKG 12-LEAD(Performed 06/30/2011) Performed for Chest pain Results * XR Lumbar Spine 2 or 3Vw (04/05/2024 4:55 PM CDT) Anatomical Region Laterality Modality Spine Radiographic Eli ging 04/05/2024 4:57 PM CDT Impressions 04/05/2024 4:58 PM CDT IMPRESSION: Moderate degenerative disc disease at L5-S1. > Interpreting Provider: Heriberto Marie MD on 04/05/2024 4:58 PM Narrative 04/05/2024 4:58 PM CDT PROCEDURE: XR LUMBAR SPINE 2 OR 3VW DATE/TIME OF EXAM: 04/05/2024 4:55 PM CLINICAL INFORMATION: None relevant/not provided if blank. Indication: Z02.71: Encounter for disability determination Additional History: COMPARISON: None. FINDINGS: AP and lateral views of the lumbar spine demonstrate 5 lumbarized vertebral segments. There is some moderate intervertebral disc space narrowing at L5-S1 with anterior endplate spurring. The remaining lumbar levels are all well-preserved without disc space narrowing or compression deformity. Sacroiliac joints appear unremarkable. Procedure Note Heriberto Marie MD - 04/05/2024 PROCEDURE: XR LUMBAR SPINE 2 OR 3VW DATE/TIME OF EXAM: 04/05/2024 4:55 PM CLINICAL INFORMATION: None relevant/not provided if blank. Indication: Z02.71: Encounter for disability determination Additional History: COMPARISON: None. FINDINGS: AP and lateral views of the lumbar spine demonstrate 5 lumbarizedvertebral segments. There is some moderate intervertebral disc space narrowing at L5-S1 with anterior endplate spurring. The remaining lumbar levels areall well-preserved without disc space narrowing or compression deformity. Sacroiliac joints appear unremarkable. IMPRESSION: Moderate degenerative disc disease at L5-S1. > Interpreting Provider: Heriberto Marie MD on 04/05/2024 4:58 PM Jewell Degroot MD DIAGNOSTIC IMAGING O RDERABLES * XR Foot Right 3Vw or More (04/05/2024 4:55 PM CDT) Anatomical Region Laterality Modality Ankle / Foot Radiographic Eli ging 04/05/2024 5:01 PM CDT Impressions 04/05/2024 5:02 PM CDT IMPRESSION: Prior fixation of the IP joint of the right great toe. Small plantar spur. > Interpreting Provider: Heriberto Marie MD on 04/05/2024 5:02 PM Narrative 04/05/2024 5:02 PM CDT PROCEDURE: XR FOOT RIGHT 3VW OR MORE DATE/TIME OF EXAM: 04/05/2024 4:55 PM CLINICAL INFORMATION: None relevant/not provided if blank. Indication: Z02.71: Encounter for disability determination Additional History: Pain COMPARISON: None. FINDINGS: Three-view examination of the right foot demonstrates a subcortical screw transfixing the IP joint of the right great toe. There is some mild narrowing of the right first MTP joint. No erosive changes are identified. There is no gross destructive or lytic process. There is a small plantar spur. Procedure Note Heriberto Marie MD - 04/05/2024 PROCEDURE: XR FOOT RIGHT 3VW OR MORE DATE/TIME OF EXAM: 04/05/2024 4:55 PM CLINICAL INFORMATION: None relevant/not provided if blank. Indication: Z02.71: Encounter for disability determination Additional History: Pain COMPARISON: None. FINDINGS: Three-view examination of the right foot demonstrates a subcorticalscrew transfixing the IP joint of the right great toe. There is some mild narrowing of the right first MTP joint. No erosive changes areidentified. There is no gross destructive or lytic process. There is a small plantar spur. IMPRESSION: Prior fixation of the IP joint of the right great toe. Small plantarspur. > Interpreting Provider: Heriberto Marie MD on 04/05/2024 5:02 PM Jewell Degroot MD DIAGNOSTIC IMAGING O RDERABLES * XR Shoulder Right 2Vw or More (04/05/2024 4:48 PM CDT) Anatomical Region Laterality Modality Upper Extremity Radiographic Eli ging 04/05/2024 4:57 PM CDT Impressions 04/05/2024 5:00 PM CDT IMPRESSION: No evidence of acute fracture or malalignment. Degenerative changes of the glenohumeral joint. Evidence of rotator cuff repair. Well-corticated bony density at the inferior glenoid, likely due to old labral avulsion. > Interpreting Provider: Saumya Hendricks MD on 04/05/2024 5:00 PM Narrative 04/05/2024 5:00 PM CDT PROCEDURE: XR SHOULDER RIGHT 2VW OR MORE, DATE/TIME OF EXAM: 04/05/2024 4:49 PM INDICATION: Z02.71: Encounter for disability determination ADDITIONAL CLINICAL INFORMATION: Ordering Provider Reason For Exam: Technologist Note: Additional: 58-year-old with rotator cuff syndrome.. COMPARISON: None relevant FINDINGS: Normal anatomic alignment of the right glenohumeral joint is present. No fracture is seen. There are metallic anchors projecting over the right humeral head, consistent with rotator cuff repair. There are mild degenerative changes of the humeral head and glenoid, with subchondral cysts and hypertrophic spurring. Tiny bony densities seen at the lower glenoid, consistent with old tiny avulsion fracture. The right AC joint is intact. Procedure Note Saumya Hendricks MD - 04/05/2024 PROCEDURE: XR SHOULDER RIGHT 2VW OR MORE, DATE/TIME OF EXAM: 04/05/2024 4:49 PM INDICATION: Z02.71: Encounter for disability determination ADDITIONAL CLINICAL INFORMATION: Ordering Provider Reason For Exam: Technologist Note: Additional: 58-year-old with rotator cuff syndrome.. COMPARISON: None relevant FINDINGS: Normal anatomic alignment of the right glenohumeral joint is present. No fracture is seen. There are metallic anchors projectingover the right humeral head, consistent with rotator cuff repair. There aremild degenerative changes of the humeral head and glenoid, with subchondral cysts and hypertrophic spurring. Tiny bony densities seen at the lower glenoid, consistent with old tiny avulsion fracture. The right AC jointis intact. IMPRESSION: No evidence of acute fracture or malalignment. Degenerative changes of the glenohumeral joint. Evidence of rotator cuff repair. Well-corticated bony density at the inferior glenoid, likely due to old labral avulsion. > Interpreting Provider: Saumya Hendricks MD on 04/05/2024 5:00 PM Jewell Degroot MD DIAGNOSTIC IMAGING O RDERABLES * VAS RIGHT VENOUS DUPLEX LE (06/30/2011 11:29 AM SOFTWARE QUALITY TEST ENGINEER) Anatomical Region Laterality Modality Ultrasound 06/30/2011 11:2 0 AM SOFTWARE QUALITY TEST ENGINEER Narrative Transcriptions Document, Scanned - 06/30/2011 3:06 PM CST Staci Lara DO VASCULAR LAB ORDERAB LES * B-TYPE NATRIURETIC PEPTIDE - POINT OF CARE (06/30/2011 10:29 AM SOFTWARE QUALITY TEST ENGINEER) BNP POCT 5.7 <=100 pg/ml [facility] Performed by ALEJANDRO [facility] Performed In ER [facility] BLOOD SPECIMEN / Unknown 06/30/2011 10:29 AM SOFTWARE QUALITY TEST ENGINEER 06/30/2011 10:35 AM SOFTWARE QUALITY TEST ENGINEER Er LAB - POINT OF CARE ORDERABLES [facility] [address] [place] [address] * MYOGLOBIN BLOOD - POINT OF CARE (06/30/2011 10:29 AM SOFTWARE QUALITY TEST ENGINEER) Myoglobin POCT 61.0 <=170 ng/ml [facility] Performed by [facility] Performed In ER [facility] BLOOD SPECIMEN / Unknown 06/30/2011 10:29 AM SOFTWARE QUALITY TEST ENGINEER 06/30/2011 10:35 AM SOFTWARE QUALITY TEST ENGINEER Er LAB - POINT OF CARE ORDERABLES Performing Organization Address [facility] de Phone Number [facility] [address] [place] [phone] * TROPONIN - POINT OF CARE (06/30/2011 10:29 AM SOFTWARE QUALITY TEST ENGINEER) Troponin I POCT < 0.05 SEE BELOW ng/ml [facility] Comment: <0.05 Normal 0.05-0.39 Indeterminate >0.4 Abnormal Performed by KT [facility] Performed In ER [facility] BLOOD SPECIMEN / Unknown 06/30/2011 10:29 AM SOFTWARE QUALITY TEST ENGINEER 06/30/2011 10:35 AM SOFTWARE QUALITY TEST ENGINEER Er LAB - POINT OF CARE ORDERABLES Performing Organization Address [facility] de Phone Number [facility] [address] [place] [phone] * CKMB - POINT OF CARE (06/30/2011 10:29 AM SOFTWARE QUALITY TEST ENGINEER) CK-MB POCT 1.7 <=8.0 ng/ml [facility] Performed by [facility] Performed In ER [facility] BLOOD SPECIMEN / Unknown 06/30/2011 10:29 AM SOFTWARE QUALITY TEST ENGINEER 06/30/2011 10:35 AM SOFTWARE QUALITY TEST ENGINEER Er LAB - POINT OF CARE ORDERABLES Performing Organization Address [facility] de Phone Number [facility] [address] [place] [phone] * XR CHEST PA AND LATERAL (06/30/2011 10:25 AM SOFTWARE QUALITY TEST ENGINEER) Anatomical Region Laterality Modality Chest Radiographic Eli ging 06/30/2011 10:4 1 AM SOFTWARE QUALITY TEST ENGINEER Narrative 06/30/2011 10:41 AM SOFTWARE QUALITY TEST ENGINEER Two-view chest CLINICAL INFORMATION: Chest pain The heart size and mediastinal contours are normal. The pulmonary vascularity and sofi are normal. The lungs are clear. Right convex thoracic scoliosis is present. The soft tissues and bony thorax are otherwise normal Procedure Note Raz Mcfarlane MD - 06/30/2011 Two-view chest CLINICAL INFORMATION: Chest pain The heart size and mediastinal contours are normal. The pulmonary vascularity and sofi are normal. The lungs are clear. Right convex thoracic scoliosis is present. The soft tissues and bony thorax are otherwise normal Staci P Creekmur DO DIAGNOSTIC IMAGING O RDERABLES * HCG URINE QUALITATIVE - POINT OF CARE (06/30/2011 10:20 AM SOFTWARE QUALITY TEST ENGINEER) HCG Qual Urine Negative Negative [facility] POCT TEST[facility] QC Verified Yes Yes [facility] POC T TESTING Urine specimen (specimen) URINE / Unknown 06/30/2011 10:20 AM SOFTWARE QUALITY TEST ENGINEER Staci P Creekmur DO LAB - POINT OF CARE ORDERABLES Performing Organization Address City/State/[facility] Co de Phone Number [facility] [address] * (ABNORMAL) CBC W AUTO DIFFERENTIAL (06/30/2011 10:10 AM SOFTWARE QUALITY TEST ENGINEER) WBC 6.0 4.0 - 10.0 K/C[facility] RBC 4.76 3.80 - 5.80 M/CUMM [facility] Hemoglobin 13.6 12.0 - 16.0 gm/dL [facility] Hematocrit 41.6 37.0 - 47.0 % [facility] MCV 87.4 80.0 - 100.0 fl [facility] MCH 28.6 26.0 - 34.0 pg [facility] MCHC 32.7 31.0 - 37.0 gm/dL [facility] Platelet Count 242 150 - 400 K/CUM[facility] RDW 13.3 11.5 - 14.5 % [facility] Granulocytes % 49.3(L) 50 - 70 % [facility] Lymphocytes % 38.6 20 - 40 % [facility] Monocytes % 6.2 0 - 12 % [facility] Eosinophils % 5.2(H) 0 - 5 % [facility] Basophils % 0.5 0 - 2 % [facility] Granulocytes Absolute 2.94 2.00 - 7.00 x1000/cmm [facility] Lymphocytes Absolute 2.30 0.80 - 4.00 x1000/cmm [facility] Monocytes Absolute 0.37 0.00 - 1.20 x1000/cmm [facility] Eosinophils Absolute 0.31 0.00 - 0.50 x1000/cmm [facility] Basophils Absolute 0.03 0.00 - 0.20 x1000/cmm [facility] Blood specimen (specimen) BLOOD SPECIMEN / Unknown 06/30/2011 10:10 AM SOFTWARE QUALITY TEST ENGINEER 06/30/2011 10:23 AM SOFTWARE QUALITY TEST ENGINEER Staci Cooperr DO LAB - HEMATOLOGY ORD ERABLES [facility] [address] [place] [address] * (ABNORMAL) COMPREHENSIVE METABOLIC PANEL (06/30/2011 10:10 AM SOFTWARE QUALITY TEST ENGINEER) Sodium 141 136 - 145 mmol/L [facility] Potassium 3.4(L) 3.5 - 5.1 mmol/L [facility] Chloride 104 98 - 107 mmol/L [facility] BUN 11 7 - 21.0 mg/dl [facility] Creatinine 0.53 0.5 - 1.3 mg/dl [facility] Glucose 102 65 - 105 mg/dl [facility] Calcium 9.1 8.5 - 10.1 mg/dl [facility] Alkaline Phosphatase 61 38 - 126 U/L [facility] AST 17 5.0 - 40 U/L [facility] Bilirubin Total 0.3 0.2 - 1.0 mg/dl [facility] Protein Total 7.9 6.4 - 8.2 gm/dl [facility] Albumin 4.4 3.4 - 5.0 gm/dl [facility] CO2 24 22 - 30 mmol/L [facility] ALT 24 12.0 - 78.0 U/L [facility] eGFR by MDRD >60 >60 mL/min/1.7 3m2 [facility] Comment eGFR [facility] Comment: The eGFR does not apply to patients who are younger than 18 or older than 70. Blood specimen (specimen) BLOOD SPECIMEN / Unknown 06/30/2011 10:10 AM SOFTWARE QUALITY TEST ENGINEER 06/30/2011 10:23 AM SOFTWARE QUALITY TEST ENGINEER Staci P Creekmur DO LAB - CHEMISTRY SHERIE BORREGO [facility] Organization Address City/State/ZIP Co de Phone Number [facility] [address] [place] [address] * EKG 12-LEAD (06/30/2011) Staci P Kennethr DO ECG ORDERABLES Care Teams Clinical Engineering Manager Relationship Specialty Start Date End Date Lucrecia Hamilton MD [address] [place] [id number] PCP - General Family Medicine 04/05/24
--- OUTSIDE RECORDS SUMMARY | 2024-09-27 08:20 | XMS_ITS | Referral Summary ---
Author Organization [facility] Address [address] [place] [address] Care Team Providers Care Macerator Operator Name Role Phone Lucrecia Hamilton MD Primary Care Provider [phone] Source Comments [facility],non-owned Affiliates and Associated Physician Practices is amultiple site organization consisting of ambulatory clinics and hospital sitesin [place], [place], [place] and [place]. This disclosure is being madepursuant to the Care Everywhere program and may not contain all information available regarding this patient. Last updated 18.[facility] Allergies No known active allergies Medications * Be aware that medications may not be up to date on this document. Alwaysverify current medications with the patient. Medication Sig Dispensed Refills Start Date End Date Status traMADol (ULTRAM) 50 MG tablet Take 1 Tab by mouth every 4 hours as needed for Pain. 20 Tab 0 06/30/2011 Active Social History Tobacco Use Types Packs/Day Years [...] Comments Blood Pressure 116/63 06/30/2011 10:58 AM ORGANIC EXTRACTIONS TECHNICIAN Pulse 72 06/30/2011 10:58 AM ORGANIC EXTRACTIONS TECHNICIAN Temperature 36.9 C (98.4 F) 06/30/2011 1:55 PM ORGANIC EXTRACTIONS TECHNICIAN Respiratory Rate 16 06/30/2011 10:58 AM ORGANIC EXTRACTIONS TECHNICIAN Oxygen Saturation 100% 06/30/2011 10:58 AM ORGANIC EXTRACTIONS TECHNICIAN Inhaled Oxygen Concentration - - Weight - - Height - - Body Mass Index - - Plan of Treatment Not on file Care Teams Macerator Operator Relationship Specialty Start Date End Date Lucrecia Hamilton MD [address] [place] [address] PCP - General Family Medicine 04/05/24
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
--- OUTSIDE RECORDS SUMMARY | 2024-09-27 08:21 | XMS_ITS ---
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 Date/Time Encounter Type Encounter Description Reason Provider Source Sep 20, 2024 12:55 PM Outpatient Encounter ADMIN PAT ACTIVTIES (MASNONCT) FAINA HUNT Encounter Template Text not used by [place] Plan of Treatment: Future Appointments (+ 6 months) and Future Tests (+/- 45 days) The Plan of Treatment section includes future care activities for the patient from all [place] treatmentfacilities. This section includes future appointments and future orders which are active, pending or scheduled. Future Appointments This section includes appointments that were scheduled to occur 6 months from the date of the Encounter, up to a maximum of 20 appointments. The data comes from all [place] treatment facilities. Appointment Date/Time Appointment Type Appointme nt Facility Name December 12, 2024 02:00 PM AMBULATORY - MED[facility]INE [facility] Feb 07, 2025 03:30 PM AMB[facility]ORY - MEDICINE [facility] Social History: Smoking Status (Most current) and Tobacco Use (All prior to encounter date) This section includes the most current, and the historical, smoking and tobacco- related health factors from the [place] facility where the Encounter took place. Current Smoking Status This section includes the most current smoking, or tobacco-related health factor, from the [place] facility where the Encounter took place. Date/Time Current Smoking Status Comment Twan ity Feb 06, 2014 01:50 PM LIFETIME NON-USER OF TOBACCO [facility] Tobacco Use History This section includes a history of the smoking, or tobacco-related health factors, that were collected on or before the date of the Encounter. The data comes from the [place] facility where the Encounter took place. Date/Time Smoking Status/Tobacco Use Comment F acsean Apr 10, 2013 02:18 PM LIFETIME NON-USER OF TOBACCO [facility] May 06, 2007 08:25 AM LIFETIME NON-USER OF TOBACCO [facility] Advance Directives: All historical and current Section Date Range: From patient's date of to the date document was created. This section includes ALL of a patient's completed or amended [place] Advance and Rescinded Directives. The entries below indicate that a directive exists for the patient, but an actual copy is not included with this document. The data comes from all [place] facilities. Date Advance Directives Provider Source Sep 17, 2014 ADVANCE DIRECTIVE DISCUSSION TAMMIE GARDNER [facility] Encounter Notes: All associated encounter notes This section contains the clinical notes associated to the Encounter. 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 Encounter/Visit Type: Telephone 's Phone Number, Address, Email Address and Contact Information Patient Address: [address], [place] [address] Patient Email - [email or web address] Emergency Contact: CON - Patient Contacts Patient Phone Numbers: Cell: No data available Home: Work: No data available Emergency Contact: Name: MERON WIN Relationship: EXTENDED FAMILY MEMBER Secondary Emergency Contact: Name: No data available Relationship: No data available Phone: No data available Secondary Next of Kin Contact Name: No data available Relationship: No data available Phone: No data available --- Age: 59 years old Gender: FEMALE 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 Able to speak complete sentences with ease. Skin Assessment: Chief Complaint: 59yo generalized weakness legs/knees for a few days. right worse than left. right flank pain and new onset urinary incontinence. denies any falls or injuries. does not ambulate with cane or walker. declined provider at this time. agreed to ER chaya dorsey from [facility]. will go to nearest ER. thanked for time and assistance. Safety Assessment: Are you living in a safe environment? Yes Are you carrying any weapons or contraband? No Past Medical History/Active Problems: MEKHI - Active Problems 51 Active Problems PROBLEM LAST MOD PROVIDER Anemia 03/19/2017 MILES BO Unknown or unspecified cause of morbidity or 06/21/1995 BRIAN CALI mortality Acute pharyngitis 07/06/1995 BRYANT KERR Backache 05/28/2015 SWAPNA JUNG Dermatophytosis of foot (ICD-9-CM 110.4) 05/06/2007 GORAN VILLATORO Asthma * (ICD-9-CM 493.90) 05/06/2007 HOCHREITER,GORAN Knee pain (SNOMED CT 7124070181) 01/31/2022 SWAPNA JUNG Psychotic Disorder NOS 12/11/2009 OCTAVIO TAYLOR Chronic Low Back Pain (ICD-9-CM 724.2) 12/26/2009 ICAROLYNEMACFABRIZIOSYDNEEANGELES Asthma (SNOMED CT 112283097) 02/03/2017 0 Benign essential hypertension (SNOMED CT 05/27/2015 SWAPNA JUNG 6232805) Anxiety Disorder NOS 03/21/2010 RAJANIYENIFER WU Chronic anxiety (SNOMED CT 826517443) 05/27/2015 SWAPNA JUNG Muscle Spasm (ICD-9-CM 728.85) 04/20/2010 ITHERESA TATUM Breast Mass (ICD-9-CM 611.72) 08/22/2010 NEVAEH CARDONA OA - Osteoarthritis (SNOMED CT 596979766) 09/27/2015 SWAPNA JUNG Hypokalemia * (ICD-9-CM 276.8) 12/24/2011 NEVAEH CARDONA 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< (SNOMED CT 676303565) 05/27/2015 SWAPNA JUNG Asthma (SNOMED CT 146508955) 02/12/2017 SWAPNA JUNG 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 GARCIA DUNBAR CTS - Carpal tunnel syndrome (SNOMED CT 05/27/2015 SWAPNA JUNG 86005076) Lateral Epicondylitis (Tennis Elbow) (ICD-9-CM 04/12/2012 NEVAEH CARDONA 726.32) Depressive Disorder NEC 07/09/2016 SWAPNA JUNG Abnormal Glucose Tolerance Test 04/06/2016 0 Unspecified Sleep Apnea 05/27/2015 SWAPNA JUNG Ganglion of wrist 05/27/2015 SWAPNA JUNG Disorders of bursae and tendons in shoulder 09/21/2014 GARCIA DUNBAR region Complete rupture of rotator cuff, nontraumatic 05/27/2015 SWAPNA JUNG Diabetes mellitus 05/27/2015 SWAPNA JUNG Hyperlipidemia 05/27/2015 SWAPNA JUNG Acute pharyngitis 09/27/2015 QALBANI,SWAPNA Pain in left foot 12/06/2015 QALDULCEI,SWAPNA Moderate dehydration 01/20/2016 QALBANI,SWAPNA Lipoma (clinical) 04/17/2016 QACHRIS,SWAPNA Rt thigh Sinusitis 07/14/2017 QALBANI,SWAPNA Gastroesophageal reflux disease 07/14/2017 QALBANI,SWAPNA Folliculitis 05/03/2018 QALBANI,SWAPNA Urticaria 05/03/2018 QALBANI,SWAPNA Conjunctivitis 05/03/2018 QALBANI,SWAPNA Acne 07/28/2019 QABANI,SWAPNA Diabetic - poor control 09/24/2020 QABANI,SWAPNA Otitis media 03/22/2021 QABANI,SWAPNA Impacted cerumen in right ear 03/22/2021 QABANI,SWAPNA Carpal tunnel syndrome 01/31/2022 QABANNERBladimir,SWAPNA S/p surgery Closed fracture of phalanx of right great toe 11/26/2022 QABANNERI,SWAPNA Pain in wrist 12/15/2022 QABANNERI,SWAPNA Pain in right hand 07/23/2023 GARCIA DUNBAR Exposure to potentially hazardous substance 09/30/2023 QABANNERI,SWAPNA Entrapment of right ulnar nerve at elbow 10/29/2023 GARCIA DUNBAR Bronchitis 11/29/2023BANNER,SWAPNA Pain of left knee region 04/10/2024 QABANNERI,SWAPNA Allergies/Adverse Reactions No allergy(ies) or New allergy(ies) reported by at this time. Current Medications: Active Outpatient Medications (including Supplies): ALBUTEROL 90MCG (CFC-F) 200D ORAL INHL INHALE 2 PUFFS ORAL ACTIVE INHALATION FOUR TIMES A DAY SHAKE WELL. RINSE MOUTHPIECE FREQUENTLY TO PREVENT CLOGGING. Indication: FOR ASTHMA ATORVASTATIN CALCIUM 40MG TAB TAKE ONE-HALF TABLET BY ACTIVE MOUTH EVERY EVENING TO LOWER CHOLESTEROL BENZONATATE 100MG CAP TAKE ONE CAPSULE BY MOUTH THREE ACTIVE TIMES A DAY NEEDED Indication: FOR COUGH CARBOXYMETHYLCELLULOSE 0.5%(PF)OP LAYO UD INSTILL 1 DROP IN ACTIVE BOTH EYES FOUR TIMES A DAY NEEDED Indication: FOR DRY EYE(S) CHOLECALCIF 50MCG (D3-2,000UNIT) TAB TAKE ONE TABLET BY ACTIVE MOUTH ONCE A DAY FOR VITAMIN D DEFICIENCY. CITALOPRAM HYDROBROMIDE 40MG TAB TAKE ONE TABLET BY MOUTH ACTIVE EVERY MORNING Indication: FOR DEPRESSION DOXYCYCLINE HYCLATE 100MG TAB TAKE ONE TABLET BY MOUTH ACTIVE TWICE DAILY NEEDED TAKE UNTIL FINISHED. AVOID SUN EXPOSURE WHILE TAKING. Indication: FOR ACNE OR SKIN CONDITION FLUTICASONE PROP 50MCG 120D NASAL INHL INSTILL 2 SPRAYS IN ACTIVE NOSTRIL(S) ONCE A DAY (MUST BE USED DIRECTED FOR MINIMUM OF 21 DAYS TO PROVIDE ADEQUATE BENEFITS) Indication: FOR RHINITIS GLIMEPIRIDE 4MG TAB TAKE ONE TABLET BY MOUTH ONCE A DAY ACTIVE WITH FOOD Indication: FOR DIABETES GLUCOSE SENSOR FREESTYLE JOSHUA 3 USE SENSOR EVERY 2 ACTIVE WEEKS CHANGE SENSOR/SITE EVERY 14 DAYS. TO REPLACE SENSOR FOR ANY REASON OR FOR TECHNICAL HELP PLEASE CALL [employer] DESK: -SPECIFIC PHONE NUMBER: ([phone]). Indication: FOR BLOOD SUGAR MONITORING HCTZ 12.5/LISINOPRIL 10MG TAB TAKE 1 TABLET BY MOUTH EVERY ACTIVE MORNING FOR HEART OR BLOOD PRESSURE HYDROCORTISONE 2.5% CREAM APPLY SPARINGLY TO AFFECTED ACTIVE AREA(S) ONCE A DAY NEEDED FOR EXTERNAL USE ONLY. APPLY SPARINGLY. Indication: PRURIGO INSULIN,ASPART(EQV-NOVLG)100 UN/ML FLXPEN INJECT 10 UNITS ACTIVE UNDER THE SKIN THREE TIMES A DAY BEFORE MEALS ADMINISTER 10 MINUTES BEFORE FOOD DIRECTED. REFRIGERATE UN-OPENED PENS. DISCARD CARTRIDGE 28 DAYS AFTER OPENING. Indication: FOR DIABETES INSULIN,GLARGINE 100 UNT/ML 3ML SOLOSTAR INJECT 40 UNITS ACTIVE UNDER THE SKIN AT BEDTIME FOR BLOOD SUGAR CONTROL. ADMINISTER AT SAME TIME EACH DAY DIRECTED. DISCARD ANY OPEN CARTRIDGE AFTER 28 DAYS. Indication: FOR DIABETES NEEDLE,PEN 31G,5MM USE 1 NEEDLE UNDER THE SKIN FOUR TIMES ACTIVE A DAY Indication: FOR INJECTION POTASSIUM CL 20MEQ SA TAB (DISPERSIBLE) TAKE ONE-HALF ACTIVE TABLET BY MOUTH ONCE A DAY FOR POTASSIUM SUPPLEMENTATION TAKE WITH FOOD SITAGLIPTIN (EQV-ZITUVIO) 50MG TAB TAKE ONE TABLET BY ACTIVE (S) MOUTH ONCE A DAY REPLACES ALOGLIPTIN Indication: FOR DIABETES SULFACETAMIDE NA 10% TOP SUSP APPLY SMALL AMOUNT TO ACTIVE AFFECTED AREA(S) TWICE A DAY (SHAKE WELL) (EXTERNAL USE ONLY) TACROLIMUS 0.1% TOP OINT APPLY SPARINGLY TO AFFECTED ACTIVE AREA(S) ONCE A DAY (EXTERNAL USE ONLY) Indication: FOR ATOPIC DERMATITIS Non-VA ASPIRIN 81MG EC TAB 81MG BY MOUTH ONCE A DAY ACTIVE NEEDED Non-VA MULTIVITAMIN CAP/TAB 1 TABLET BY MOUTH ONCE A DAY ACTIVE 21 Total Medications Vital Signs (Historical/Last 3): Measurement DT TEMP RESP PULSE BP POx F(C) (L/MIN)(%) 04/04/2024 10:49 97.8(36.6) 16 92 142/84 98 12/13/2023 12:00 61 97/68 11/29/2023 11:08 97.4(36.3) 20 95 114/75 99 Measurement DT PAIN WEIGHT HEIGHT LB(KG)[BMI] IN(CM) 04/04/2024 10:49 7 164.8(74.75)[33*] 59(149.86) 12/13/2023 12:00 11/29/2023 11:08 8 169(76.66)[34*] Emergency Severity Index (VANESSA) level: Level 3 Disposition: Based on assessment, [place] advised to report to the nearest Community Emergency Department. Time Spent: 11minutes Total time spent today 11minutes, which includes 9minutes in medical discussion with pt on phone. Instructed to go to Emergency Department Advised of Financial Disclaimer: Patient advised that recommendation for care provided during the call does not constitute an approval or authorization for payment by the [place] or its staff. Patient advised to report a community ED visit to the national Office of Community Care at . /jacek/ FAINA SANCHEZ RN REGISTERED NURSE Signed: 09/20/2024 13:11 FAINA HUNT [facility]
--- OUTSIDE RECORDS SUMMARY | 2024-09-27 08:21 | XMS_ITS | Encounter Summary ---
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 Date/Time Encounter Type Encounter Description Reason Provider Source Jan 05, 2024 09:00 AM MTMS BY XIN RETANA 15 MIN CLINICAL PHARMACY ICD-10-CM E11.8 Type 2 diabetes mellitus with unspecified complications LINDA POST Briseyda Encounter Template Text not used by [place] Assessments - Encounter Diagnoses This section includes the primary and secondary diagnoses documented for the Encounter. Date/Time Primary/Secondary Diagnosis Diagnosis Name Provider Source Jan 05, 2024 11:05 AM PRIMARY Type 2 diabetes mellitus with unspecified complications JEREMIAH POST [facility] Jan 05, 2024 11:05 AM SECONDARY Essential (primary) hypertension JEREMIAH POST [facility] Jan 05, 2024 11:05 AM SECONDARY Hyperlipidemia, unspecified JEREMIAH POST [facility] Plan of Treatment: Future Appointments (+ 6 months) and Future Tests (+/- 45 days) The Plan of Treatment section includes future care activities for the [facility] [place] [facility] This section includes future appointments and future orders which are active, pending or scheduled. Future Appointments This section includes appointments that were scheduled to occur 6 months from the date of the Encounter, up to a maximum of 20 appointments. The data comes from all [facility]. Appointment Date/Time Appointment Type Appointme nt Facility Name Feb 02, 2024 08:30 AM AMBULATORY - MEDICINE [facility] Mar 03, 2024 08:00 AM AMBULATORY - SURGERY [facility] Mar 06, 2024 08:30 AM AMBULATORY - MEDICINE [facility] Apr 04, 2024 11:00 AM AMBULATORY - MEDICINE [facility] Apr 04, 2024 11:30 AM AMBULATORY - MEDICINE [facility] Apr 10, 2024 08:30 AM AMBULATORY - MEDICINE [facility] Apr 11, 2024 02:15 PM AMBULATORY - MEDICINE [facility] Apr 26, 2024 10:00 AM AMBULATORY - SURGERY [facility] May 02, 2024 11:00 AM AMBULATORY - MEDICINE [facility] May 09, 2024 10:40 AM AMBULATORY - NONE [facility] May 29, 2024 11:00 AM AMBULATORY - MEDICINE [facility] Jun 13, 2024 01:00 PM AMBULATORY - MEDICINE [facility] Jul 03, 2024 10:15 AM AMBULATORY - MEDICINE [facility] Active, Pending, and Scheduled Orders This section includes a listing of several types of active, pending, and scheduled orders, including clinic medications orders, diagnostic test orders, procedure orders and consult orders; where the start date of the order is 45 days before the date of the Encounter or 45 days after the date of theEncounter. The data comes from all [facility]. Test Date/Time Test Type Test Details Facility Name December 22, 2023 12:00 AM Laboratory - Chemi stry Order CBC BLOOD SP [facility] December 22, 2023 12:00 AM Laboratory - Chemi stry Order BASIC METABOLIC PANEL GREEN LI/HEP BLD/PLAS PLASMA SP [facility] Social History: Smoking Status (Most current) and Tobacco Use (All prior to encounter date) This section includes the most current, and the historical, smoking and tobacco- related health factors from the [place] facility where the Encounter took place. Current Smoking Status This section includes the most current smoking, or tobacco-related health factor, from the [place] facility where the Encounter took place. Date/Time Current Smoking Status Comment Facil ity May 28, 2023 02:00 PM VA-TOBACCO NEVER USED [facility] Tobacco Use History This section includes a history of the smoking, or tobacco-related health factors, that were collected on or before the date of the Encounter. The data comes from the [place] facility where the Encounter took place. Date/Time [...] PM LIFETIME NON-USER OF TOBACCO [facility] Advance Directives: All historical and current Section Date Range: From patient's date of to the date document was created. This section includes ALL of a patient's completed or amended [place] Advance and Rescinded Directives. The entries below indicate that a directive exists for the patient, but an actual copy is not included with this document. The data comes from all [place] facilities. Date Advance Directives Provider Source Sep 17, 2014 ADVANCE DIRECTIVE DISCUSSION TAMMIE GARDNER [facility] Encounter Notes: All associated encounter notes This section contains the clinical notes associated to the Encounter. Date/Time Encounter Note(s) Provider Source Jan 05, 2024 08:23 AM INTERNAL MEDICINE CLINICAL PHARMACIST MEDICATION MGT NOTE: LOCAL TITLE: CLINICAL PHARMACIST NOTE [facility] STANDARD TITLE: INTERNAL MEDICINE CLINICAL PHARMACIST MEDICATION DATE OF NOTE: JAN 05, 2024@08:23 ENTRY DATE: JAN 05, 2024@08:23:07 AUTHOR: OSIEL POST EXP COSIGNER: URGENCY: STATUS: COMPLETED CLINICAL PHARMACY FOLLOW-UP Subjective: AMBER WIN is a 58 FEMALE who presents to clinic for follow up on DM/HTN/HLD. 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< (SNOMED CT 722847669) 19) Asthma (SNOMED CT 538067916) 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 21) CTS - Carpal tunnel syndrome (SNOMED CT 17612168) 22) Lateral Epicondylitis (Tennis Elbow) (ICD-9-CM 726.32) 23) Depression (SNOMED CT 94147174) 24) Impaired glucose tolerance (SNOMED CT 6148139) 25) Sleep apnea syndrome (SNOMED CT 52376141) 26) Ganglion of wrist 27) Rotator Cuff Syndrome 28) Shoulder pain (SNOMED CT 15942444) 29) Diabetes mellitus 30) Hyperlipidemia 31) Acute [...] ulnar nerve at elbow 50) Bronchitis During the last contact with vet (12/12), the following changes were made: - START insulin aspart 5 units TID BEFORE meals - Ordered CGM device + reader During current visit: Vet states she is good. Educated on carroll use/placement today. Past DM/HLD/HTN medication trials: -metformin: headache -empagliflozin: rash Objective: Allergies: EGGS, METFORMIN, EMPAGLIFLOZIN, PENICILLIN Medications: Active and Recently Outpatient Medications (excluding Supplies): Active Outpatient Medications Status 1) ALBUTEROL 90MCG (CFC-F) 200D ORAL INHL INHALE 2 PUFFS ACTIVE ORAL INHALATION FOUR TIMES A DAY FOR ASTHMA SHAKE WELL. RINSE MOUTHPIECE FREQUENTLY TO PREVENT CLOGGING. 2) ALOGLIPTIN 25MG TAB TAKE ONE TABLET BY MOUTH ONCE A ACTIVE DAY TO LOWER BLOOD SUGAR 3) ATORVASTATIN CALCIUM 40MG TAB TAKE ONE-HALF TABLET BY ACTIVE MOUTH EVERY EVENING TO LOWER CHOLESTEROL 4) BENZONATATE 100MG CAP TAKE ONE CAPSULE BY MOUTH THREE ACTIVE TIMES A DAY NEEDED 5) CETIRIZINE HCL 10MG TAB TAKE ONE TABLET BY MOUTH ONCE ACTIVE A DAY TAKE DAILY FOR ITCH AND ALLERGIES 6) CHOLECALCIF 50MCG (D3-2,000UNIT) TAB TAKE ONE TABLET ACTIVE BY MOUTH ONCE A DAY FOR VITAMIN D DEFICIENCY. 7) CITALOPRAM HYDROBROMIDE 40MG TAB TAKE ONE TABLET BY ACTIVE MOUTH EVERY MORNING FOR DEPRESSION 8) FLUTICASONE PROP 50MCG 120D NASAL INHL INSTILL 2 ACTIVE SPRAYS IN NOSTRIL(S) ONCE A DAY (MUST BE USED DIRECTED FOR MINIMUM OF 21 DAYS TO PROVIDE ADEQUATE BENEFITS) 9) GLIMEPIRIDE 4MG TAB TAKE ONE TABLET BY MOUTH ONCE A ACTIVE DAY FOR DIABETES WITH FOOD 10) HCTZ 12.5/LISINOPRIL 10MG TAB TAKE 1 [...] PENS. DISCARD CARTRIDGE 28 DAYS AFTER OPENING. - taking 24 units with breakfast 13) INSULIN,GLARGINE-YFGN 100UNIT/ML PEN 3ML INJECT 40 ACTIVE UNITS UNDER THE SKIN AT BEDTIME FOR BLOOD SUGAR CONTROL. ADMINISTER AT SAME TIME EACH DAY DIRECTED. DISCARD ANY OPEN CARTRIDGE AFTER 28 DAYS. - taking 40 PM 14) POTASSIUM CL 20MEQ SA TAB (DISPERSIBLE) TAKE ONE-HALF ACTIVE TABLET BY MOUTH ONCE A DAY FOR POTASSIUM SUPPLEMENTATION TAKE WITH FOOD 15) SULFACETAMIDE NA 10% TOP SUSP APPLY SMALL AMOUNT TO ACTIVE AFFECTED AREA(S) TWICE A DAY (SHAKE WELL) (EXTERNAL USE ONLY) 16) TACROLIMUS 0.1% TOP OINT APPLY LIGHTLY TO AFFECTED ACTIVE AREA(S) ONCE A DAY FOR FACE (EXTERNAL USE ONLY) Inactive Outpatient Medications Status 1) CAMPHOR 0.5/MENTHOL 0.5% LOTION APPLY LIBERALLY TO AFFECTED AREA(S) NEEDED FOR ITCHING - (EXTERNAL USE ONLY) Active Non-VA Medications Status 1) Non-VA ASPIRIN 81MG EC TAB 81MG BY MOUTH ONCE A DAY ACTIVE NEEDED 2) Non-VA MULTIVITAMIN CAP/TAB 1 TABLET BY MOUTH ONCE A ACTIVE DAY 19 Total Medications meds: n/a OTC/Non-VA meds: see above Medication reconciliation completed: YES Adherence to above medications: good Refills/renewals needed: denies Labs: CMP: SODIUM 132 L mEq/L 11/30/2023 [...] 06/10/2023 08:40 Self-Monitoring of Blood Glucose (SMBG): tell changes for better from body ; not testing SMBGs d/t waiting for carroll Home Readings: not testing but has machine [...] GLP1 next if vet meets qualifications. - continue insulin aspart 5 units TID BEFORE meals - continue insulin glargine 40 units QHS - continue alogliptin 25mg PO daily - continue glimepiride 4mg PO daily (breakfast) - Check SMBGs via CGM q6h - educated vet on hypoglycemia symptoms and appropriate treatment and when to contact clinic or go to emergency room - Labs: Next A1c due 03/01/24, Next micral/creat due 05/2024 - opto: 03/04/23: Diabetes without retinopathy, OU- DUE - podiatry: DUE [employer] Carroll 3 patient education Patient evaluation, education and training, specific to operating and managing the device has been completed. (Yes) Patient has demonstrated competency in coordinating proper maintenance for the CGMS. (Yes) Patient understands his/her responsibility to adhere to the sales office administrator recommendations regarding the performance of self-monitoring of blood glucose calibration of the CGM as recommended by the sales office administrator. (Yes) Patient demonstrated the ability to achieve the stated goals from the problem based needs assessment Person(s)instructed: patient Instruction: CGM overview and set-up 1. The [employer] Carroll 3 Continuous Glucose Monitoring System is a real time continuous glucose monitoring (CGM) device with alarms capability indicated for the management of diabetes in persons 2. Alarms (Alarms are on by default. Low 70 and High 240). Must scan sensor to start sensor. 3. Interstitial vs. capillary blood glucose readings 4. When to verify sensor reading with fingerstick blood glucose - Do a blood glucose test if you think your glucose readings are not correct or do not match how you feel. Do not ignore symptoms that may be due to low or high glucose. - Do a blood glucose test when you see the check BG symbol during the first 12 hours of wearing a Sensor or the Sensor glucose reading does not include a Current Glucose number Sensor application 1. Site selection and site prep with alcohol pad/Skin Prep Wipe 2. Sensor prep-sensor pack and sensor applicator 3. Starting the sensor: 1 hour warm up before BG readings available 4. Sensor change every 14 days and rotate site 5. Call [employer] service, ([phone]) if sensor comes off before 14 days sensor placed on back of right arm/left arm today Safety and Troubleshooting 1. When the test BG symbol appears, test fingerstick blood glucose prior to making treatment decisions 2. Do a fingerstick blood glucose test if the sensor readings do not match how you feel 3. Remove sensor prior for MRI or CT. Sensor may be damaged by exposure to airport x-ray screening 4. Vitamin C over 500mg daily may cause false high readings. 5. Store sensor kit between 36 and 82 degrees. Contact information provided for [employer] service and/or labor trainer. 2) HLD - Goal is treatment with [...] pain, headache, vision changes, numbness, etc.) - Education provided on nonpharmacologic ways to improve DM/HLD/HTN (including lifestyle management/dietary/physical activity) specific for the vet's needs. - verbalized understanding to all plans discussed today. Questions were answered to vet's satisfaction. Time spent with vet: 45 min RTC: ~4 weeks (Sent to senior front end web developer to schedule) PBM PharmD Pharmacotherapy Rem V12: PHARMACIST INTERVENTIONS: HYPERTENSION Medication monitoring, no dosage change required, continue to monitor and assess LIPID MANAGEMENT Medication monitoring, no dosage change required, continue to monitor and assess TYPE 2 DIABETES MELLITUS Medication monitoring, no dosage change required, continue to monitor and assess Medication reconciliation (changes to active VA and non-VA medication lists to reconcile differences) No changes to medication lists made (medication review completed, no discrepancies identified) /jacek/ Osiel Post PharmCrystalD. Clinical Pharmacist Signed: 05/01/2024 18:22 OSIEL POST [facility]
--- OUTSIDE RECORDS SUMMARY | 2024-09-27 08:21 | XMS_ITS | Encounter Summary ---
Author Name [facility] [place] [facility] [place] Address [address], [place] [address] Care Team Providers Care Radiology Aide Name Role Phone SWAPNA JUNG Primary Care [...] section includes the information on record at [place] for the Encounter. Date/Time Encounter Type Encounter Description Reason Pro vider Source Apr 06, 2024 01:46 PM Outpatient Encounter GENERAL INTERNAL MEDICINE [facility] Encounter Template Text not used by [place] Plan of Treatment: Future Appointments (+ 6 months) and Future Tests (+/- 45 days) The Plan of Treatment section includes future care activities for the patient from all [place] treatmentfacilities. This section includes future appointments and future orders which are active, pending or scheduled. Future Appointments This section includes appointments that were scheduled to occur 6 months from the date of the Encounter, up to a maximum of 20 appointments. The data comes from all [place] treatment facilities. Appointment Date/Time Appointment Type Appointme nt Facility Name Apr 10, 2024 08:30 AM AMBULATORY - MEDICINE [facility] Apr 11, 2024 02:15 PM AMBULATORY - MEDICINE [facility] Apr 26, 2024 10:00 AM AMBULATORY - SURGERY . Titus JACOB [facility] May 02, 2024 11:00 AM AMBULATORY - MEDICINE [facility] May 09, 2024 10:40 AM AMBULATORY - NONE Crystal Rodriguez [facility] May 29, 2024 11:00 AM AMBULATORY - MEDICINE [facility] Jun 13, 2024 01:00 PM AMBULATORY - MEDICINE [facility] Jul 03, 2024 10:15 AM AMBULATORY - MEDICINE [facility] Jul 24, 2024 01:00 PM AMBULATORY - SURGERY [facility] Titus JACOB [facility] Aug 11, 2024 01:45 PM AMBULATORY - MEDICINE [facility] Lab Results: +/- 30 days of the encounter This section includes the Chemistry and Hematology Lab Results on record with [facility] for the [facility]. Radiology Reports and Pathology Reports are provided separately, in subsequent sections. Lab Results This section contains the Chemistry/Hematology Results that were resulted 30 days before or 30 daysafter the date of the Encounter. Date/Time Source Result Type Result - Unit Interpretation Reference Range Comment Apr 11, 2024 12:05 PM [facility] MICRAL/CREAT PROFILE (STL) Specimen Type: URINE No comment entered. Ordering Provider: ANITRA JUNG Report Released Date/Time: Apr 10, 2024 08:49 AM Reporting Lab: [facility] [address] [facility] [address] Performing Lab: [facility] [address] [facility] [address] URINE ALBUMIN (PB-STL) 12.9 mg/L uACR (STL) 8 mg/g 0-29 CREATININE URINE/OTHERS 154.4 mg/dL H 47-110 Apr 11, 2024 12:05 PM [facility] URINALYSIS (STL-PB) Specimen Type: URINE No comment entered. Ordering Provider: ANITRA JUNG Report Released Date/Time: Apr 10, 2024 08:49 AM Reporting Lab: [facility] [address] [facility] [address] Performing Lab: [address] [address] URINE COLOR Light-Yellow Yellow U.BILIRUBIN Negative mg/dL Negative U.PH 6.0 5.0-8.0 APPEARANCE Clear Clear U.NITRITE Negative mg/dL Negative URN.GLUCOSE Normal mg/dL Negative URN.PROTEIN 10 mg/dL H Negative-20 URN.UROBILINOGEN Normal mg/dL Normal URN.BLOOD Negative mg/dL Negative-Tra ce URN.KETONES Negative mg/dL Negative-Tra ce URN.LEUK.EST. Negative mg/dL Negative-Tra ce URN.SPECIFIC GRAVITY 1.026 1.005-1.029 Apr 11, 2024 11:55 AM [facility] HGA1C Specimen Type: BLOOD No comment entered. Ordering Provider: ANITRA JUNG Report Released Date/Time: Apr 10, 2024 08:48 AM Reporting Lab: [address] [address] Performing Lab: [address] [address] HGA1C 9.2 H 4.0-6.0 Apr 11, 2024 11:55 AM [facility] LIPID PANEL (STL) Specimen Type: PLASMA Comment: No hemolysis noted. Ordering Provider: ANITRA JUNG Report Released Date/Time: Apr 10, 2024 08:49 AM Reporting Lab: [address] [address] Performing Lab: [address] [address] CHOLESTEROL 222 mg/dL H 0-200 TRIGLYCERIDE 83 mg/dL 0-150 CALCULATED LDL 134 mg/dL HDL(New) 71 mg/dL >40 Apr 11, 2024 11:55 AM [facility] VITAMIN D, 25-HYDROXY Specimen Type: SERUM No comment entered. Ordering Provider: ANITRA JUNG Report Released Date/Time: Apr 10, 2024 08:49 AM Reporting Lab: [address] [address] Performing Lab: [facility] [address] [facility] [address] VITAMIN D, 25-HYDROXY 47.9 ng/mL 30-96 Apr 11, 2024 11:55 AM [facility] COMPREHENSIVE METABOLIC PANEL Specimen Type: PLASMA Comment: No hemolysis noted. Ordering Provider: ANITRA JUNG Report Released Date/Time: Apr 10, 2024 08:48 AM Reporting Lab: [facility] [address] [facility] [address] Performing Lab: [facility] [address] [place] [address] CREATININE 0.93 mg/dL 0.6-1.1 UREA NITROGEN 21.3 [...] 70.8 >60 Apr 11, 2024 11:55 AM [facility] TSH W/ REFLEX FT4 (STL) Specimen Type: PLASMA No comment entered. Ordering Provider: ANITRA JUNG Report Released Date/Time: Apr 10, 2024 08:49 AM Reporting Lab: [facility] [address] [facility] [address] Performing Lab: [facility] [address] [place] [address] TSH 0.823 u[IU]/mL 0.47-5 Apr 11, 2024 11:55 AM [facility] CBC Specimen Type: BLOOD No comment entered. Ordering Provider: ANITRA JUNG Report Released Date/Time: Apr 10, 2024 08:49 AM Reporting Lab: [facility] [address] [facility] [address] Performing Lab: [facility] [address] [facility] [address] WBC 8.1 10*3/uL 3.6-11.2 RBC 4.96 10*6/uL [...] 10*3/uL 0.00-0.20 Apr 04, 2024 11:01 AM [facility] GLUCOSE,BLOOD-poct (STL) Specimen Type: BLOOD Comment: Test Performed by: [id number] Meter #: [id number] Ordering Provider: ANITRA JUNG Report Released Date/Time: Apr 04, 2024 02:12 PM Reporting Lab: [facility] [address] [facility] [address] Performing Lab: [facility] [address] [facility] [address] GLUCOSE,BLOOD-po ct (STL) 331 mg/dL H 72-99 Social History: Smoking Status (Most current) and Tobacco Use (All prior to encounter date) This section includes the most current, and the historical, smoking and tobacco- related health factors from the [place] facility where the Encounter took place. Current Smoking Status This section includes the most current smoking, or tobacco-related health factor, from the [place] facility where the Encounter took place. Date/Time Current Smoking Status Comment Twan ity Feb 06, 2014 01:50 PM LIFETIME NON-USER OF TOBACCO [facility] Tobacco Use History This section includes a history of the smoking, or tobacco-related health factors, that were collected on or before the date of the Encounter. The data comes from the [place] facility where the Encounter took place. Date/Time Smoking Status/Tobacco Use Comment F acility Apr 10, 2013 02:18 PM LIFETIME NON-USER OF TOBACCO [facility] May 06, 2007 08:25 AM LIFETIME NON-USER OF TOBACCO [facility] Advance Directives: All historical and current Section Date Range: From patient's date of to the date document was created. This section includes ALL of a patient's completed or amended [place] Advance and Rescinded Directives. The entries below indicate that a directive exists for the patient, but an actual copy is not included with this document. The data comes from all [place] facilities. Date Advance Directives Provider Source Sep 17, 2014 ADVANCE DIRECTIVE DISCUSSION TAMMIE GARDNER [facility] Radiology Reports: +/- 30 days of the [...] the Encounter. The data comes from all [place] treatment facilities. Date/Time Radiology Report Provider Source Apr 11, 2024 11:42 AM KNEE OA SERIES LEF T 3 VWS>/=55: AMBER WIN [id number] -[id number] F Exm Date: APR 11, 2024@11:42 Req Phys: SWAPNA JUNG Loc: [facility] [place] PACT PHONE 03 PCP ( Img Loc: -MAIN RADIOLOGY SUITE Service: Unknown [facility] [address] [place] [address] (Case [id number] COMPLETE) KNEE,LEFT, 3 VIEWS (RAD Detailed) CPT:33012 Proc Modifiers : BILAT AP & BILAT SUNRISE Reason for Study: Left knee pain, (Case 1635 COMPLETE) KNEE,RIGHT,1 OR 2 VIEWS (RAD Detailed) CPT:40558 Proc Modifiers : BILAT AP & BILAT SUNRISE Clinical History: left knee pain, hurting bad on walking Do films need to be ortho templated printed? No Report Status: Verified Date Reported: APR 11, 2024 Date Verified: APR 11, 2024 Head Irrigator E-Sig:/ES/MELISSA CAMERON MD Report: Case #[id number] and [...] MELISSA CAMERON MD, Staff Physician - Radiologist (Head Irrigator) /MELISSA FINNEY [facility] Encounter Notes: All associated encounter notes This section contains the clinical notes associated to the Encounter. Date/Time Encounter Note(s) Provider Source Apr 04, 2024 01:46 PM NONVA NOTE: LOCAL TITLE: [facility] PRESENTING CARE COORD PLAN STANDARD TITLE: NONVA NOTE DATE OF NOTE: APR 04, 2024@13:46 ENTRY DATE: APR 06, 2024@13:46:32 AUTHOR: LEO OLIVER EXP COSIGNER: URGENCY: STATUS: COMPLETED Emergency Notification Intake Date Presenting to the Facility: Mar Method of Contact: Notified from [facility] worklist Notification ID: [id number] [facility] Referral #: [id number] Clinical Review [facility] Name: Hospital: [facility] Address: [address] [place] [address] City: [facility] State: [place] Zip Code: [address] Community Facility Point of Contact: Name: [facility] Chief complaint: Hyperglycemia Primary Diagnosis: Disposition Discharged Date of discharge: Mar Discharge to home MDM Independent History: 58-year-old female presents with high blood pressure and high blood glucose DDx: Uncontrolled hypertension, uncontrolled type 2 diabetes, DKA less likely, HHS, electrolyte disorder, metabolic syndrome, versus other. Plan: Basic labs, medical management as needed Data Review: Patient received fluid and insulin and improvement of glucose to 188. No ketonuria. No anion gap. Nontoxic appearing. Consults/Risk stratification: Tolerating PO. Neurologically intact. No signs or symptoms of DKA. Shared decision making / Disposition: Patient to be discharged home with close outpatient follow up for hypertension and diabetes. Discussed with her the importance of close medication compliance. She expressed verbal understanding. She is stable for discharge home at this time. Records r/t this episode of care may be found in [facility]; also sent to [facility] for scanning. /jacek/ LEO OLIVER [employer] POSITIONER Signed: 04/06/2024 13:56 Receipt Acknowledged By: 04/06/2024 14:49 /es/ SWAPNA JUNG staff physician 04/07/2024 12:01 /jacek/ JOSE ALFREDO US BSN RN REGISTERED NURSE LEO OLIVER [facility]
--- OUTSIDE RECORDS SUMMARY | 2024-09-27 08:22 | XMS_ITS | Continuity of Care Document ---
Author Name [facility] Organization [facility] Care Team Providers Care Flagsetter Name Role Phone [facility] Unavailable Unavailable Problems Combined list of problems from Department of Defense and Veterans Affairs facilities. It does not include entries that were removed or entered in error. Problem Status Onset Date Problem Type Date of Resolution Comments Source nonallopathic lesions lower extremities Active Condition [facility] Other Physical Therapy Inactive Condition [facility] joint pain, localized in the knee Active Condition [facility] plica syndrome Active Condition [facility] [address] [facility] Acne vulgaris Active Condition [facility] Acute pharyngitis Active Condition [facility] Anxiety Disorder NOS Active Condition [facility] Artic Cartil Disorder Active Condition [facility] Asthma (SNOMED CT 492228079) Active Condition [facility] Asthma * (ICD-9-CM 493.90) Active Condition [facility] Benign essential hypertension (SNOMED CT 3540131) Active Condition [facility] Breast Mass (ICD-9-CM 611.72) Active Condition [facility] Bronchitis Active Condition [facility] Carpal tunnel syndrome Active Condition Jan 31, 2022 Entered By: MARSHALL JUNG Comment: s/p surgery [facility] Chronic anxiety (SNOMED CT 216161654) Active Condition [facility] Chronic back pain (SNOMED CT 389378310) Active Condition [facility] Chronic Low Back Pain (ICD-9-CM 724.2) Active Condition [facility] Closed fracture of phalanx of right great toe Active Condition [facility] Conjunctivitis Active Condition [facility] CTS - Carpal tunnel syndrome (SNOMED CT 54046689) Active Condition 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 Depression (SNOMED CT 21827625) Active Condition [facility] Dermatophytosis of foot (ICD-9-CM 110.4) Active Condition 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 Exposure to potentially hazardous substance Active Condition [facility] Folliculitis Active Condition [facility] Ganglion of wrist Active Condition [facility] Gastro-esophageal reflux disease Active Condition [facility] Hyperlipidemia Active Condition [facility] Hypokalemia * (ICD-9-CM 276.8) Active Condition [facility] Impacted cerumen in right ear Active Condition [facility] Impaired glucose tolerance (SNOMED CT 1350691) Active Condition [facility] Knee pain (SNOMED CT 4608819549) Active Condition [facility] Lateral Epicondylitis (Tennis Elbow) (ICD-9-CM 726.32) Active Condition [facility] Left knee pain Active Condition [facility] Lipoma Active Condition Apr 17, 2016 Entered By: MARSHALL JUNG Comment: rt thigh [facility] Moderate dehydration Active Condition [facility] Muscle Spasm (ICD-9-CM 728.85) Active Condition [facility] OA - Osteoarthritis (SNOMED CT 475747761) Active Condition [facility] Obesity (SNOMED CT 111822051) Active Condition [facility] OM - Otitis media Active Condition [facility] Pain in left foot Active Condition [facility] Pain in right hand Active Condition [facility] Psychotic Disorder NOS Active Condition [facility] Rotator Cuff Syndrome Active Condition [facility] Shoulder pain (SNOMED CT 75556006) Active Condition [facility] Sinusitis Active Condition [facility] Sleep apnea syndrome (SNOMED CT 51188749) Active Condition [facility] Urticaria Active Condition [facility] Wrist pain Active Condition [facility] Diagnosis: ICD-10-CM L70.5 Acne excoriee Active Diagnosis [facility] Diagnosis: ICD-10-CM Z23 Encounter for immunization Active Diagnosis [facility] Diagnosis: ICD-10-CM Z63.0 Problems in relationship with spouse or partner Active Diagnosis [facility] Diagnosis: ICD-10-CM Z60.0 Problems of adjustment to life-cycle transitions Active Diagnosis [facility] Diagnosis: ICD-10-CM H43.813 Vitreous degeneration, bilateral Active Diagnosis [facility] Diagnosis: ICD-10-CM L28.2 Other prurigo Active Diagnosis [facility] Diagnosis: ICD-10-CM E11.9 Type 2 diabetes mellitus without complications Active Diagnosis [facility] Diagnosis: ICD-10-CM E11.8 Type 2 diabetes mellitus with unspecified complications Active Diagnosis [facility] Diagnosis: ICD-10-CM J20.9 Acute bronchitis, unspecified Active Diagnosis [facility] Diagnosis: ICD-10-CM G56.21 Lesion of ulnar nerve, right upper limb Active Diagnosis [facility] Diagnosis: ICD-10-CM M25.579 Pain in unspecified ankle and joints of unspecified foot Active Diagnosis [facility] ESTEPHANIE Rodriguez [facility] Diagnosis: ICD-10-CM G56.03 Carpal tunnel syndrome, bilateral upper limbs Active Diagnosis [facility] Diagnosis: ICD-10-CM I10 Essential (primary) hypertension Active Diagnosis [facility] Diagnosis: ICD-10-CM H52.13 Myopia, bilateral Active Diagnosis 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 Medications Combined list of outpatient medications from Department of Defense and [facility] Affairs facilities.Medications provided include 1) outpatient medications from the last 15 months, and 2) patient-reported medications. Medication Details Route Status Patient Instructions Prescription Expires Prescription Number Last Dispense Date Ordering Provider Order Date Order Qty Source ALBUTEROL SO4 90MCG/ACTUA T (CFC-F) INHL,ORAL,8 .5GM INHALE 2 PUFFS ORAL INHALATI ON FOUR TIMES A DAY FOR ASTHMA SHAKE WELL. RINSE MOUTHPIE CE FREQUENT LY TO PREVENT CLOGGING . RESPIR ATORY (INHAL ATION) ACTIVE 11/29/2024 [id number] 4 QAFAMILIAIAntonio HALIDA 2023 1 [facility] ALOGLIPTIN 25MG TAB TAKE ONE TABLET BY MOUTH ONCE A DAY TO LOWER BLOOD SUGAR ORAL DISCONT INUED BY PROVIDE R 02/09/2024 [id number] 4 VIKI THORNE [facility] 2022 90 [facility] ASPIRIN 81MG TAB,EC TAKE ONE TABLET BY MOUTH ONCE A DAY NEEDED ORAL ACTIVE VIKI THORNE [facility] 2022 [facility] ATORVASTATI N CA 40MG TAB TAKE ONE-HALF TABLET BY MOUTH EVERY EVENING TO LOWER CHOLESTE ROL ORAL ACTIVE 11/29/2024 [id number] 5 Antonio JUNG HALIDA 2023 45 [facility] BENZONATATE 100MG CAP TAKE ONE CAPSULE BY MOUTH THREE TIMES A DAY NEEDED ORAL ACTIVE 08/25/2025 [id number] 5 Antonio JUNG HALIDA 2024 30 [facility] BENZONATATE 100MG CAP TAKE ONE CAPSULE BY MOUTH THREE TIMES A DAY NEEDED ORAL DISCONT INUED 11/29/2024 [id number] 4 Antonio JUNG HALIDA 2023 30 [facility] CAMPHOR 0.5%/MENTHO L 0.5% LOTION APPLY LIBERALL Y TO AFFECTED AREA(S) NEEDED FOR ITCHING - (EXTERNA L USE ONLY) TOPICA L 12/17/2023 [id number] 4 NINA ANGELA 2022 225 [facility] CARBOXYMETH YLCELLULOSE NA 0.5% (PF) SOLN,OPH,0. 4ML INSTILL 1 DROP IN BOTH EYES FOUR TIMES A DAY NEEDED FOR DRY EYE(S) OPHTHA LMIC ACTIVE 04/27/2025 [id number] 4 PIERRE HAUSER THI 2023 90 [facility] CETIRIZINE HCL 10MG TAB TAKE ONE TABLET BY MOUTH ONCE A DAY TAKE DAILY FOR ITCH AND ALLERGIE S ORAL 05/26/2024 [id number] 4 MERRILL LOPEZ SA 2022 90 [facility] CHOLECALCIF ESTELA 50MCG (2,000UNIT) TAB TAKE ONE TABLET BY MOUTH ONCE A DAY FOR VITAMIN D DEFICIEN CY. ORAL ACTIVE 12/14/2024 [id number] 5 Antonio JUNG HALIDA 2023 100 [facility] CHOLECALCIF ESTELA 50MCG (2,000UNIT) TAB TAKE ONE TABLET BY MOUTH ONCE A DAY FOR VITAMIN D DEFICIEN CY. ORAL 10/26/2023 [id number] 4 QAAntonio PEREZ HALIDA 2022 100 [facility] CITALOPRAM HYDROBROMID E 40MG TAB TAKE ONE TABLET BY MOUTH EVERY MORNING FOR DEPRESSI ON ORAL ACTIVE 11/29/2024 [id number] 4 Antonio JUNG HALIDA 2023 90 [facility] CITALOPRAM HYDROBROMID E 40MG TAB TAKE ONE TABLET BY MOUTH EVERY MORNING FOR DEPRESSI ON ORAL DISCONT INUED 09/25/2023 [id number] 4 Antonio JUNG HALIDA 2022 90 [facility] DOXYCYCLINE HYCLATE 100MG TAB TAKE ONE TABLET BY MOUTH TWICE DAILY NEEDED TAKE UNTIL FINISHED . AVOID SUN EXPOSURE WHILE TAKING. ORAL ACTIVE 08/12/2025 [id number] 5 DINAH RAYO 2024 60 [facility] DOXYCYCLINE HYCLATE 100MG TAB TAKE ONE TABLET BY MOUTH ONCE A DAY FOR RASH TAKE UNTIL FINISHED . AVOID SUN EXPOSURE WHILE TAKING. ORAL DISCONT INUED BY PROVIDE R 04/12/2025 [id number] 4 Samm COUCH B 2023 90 [facility] DOXYCYCLINE HYCLATE 100MG TAB TAKE ONE TABLET BY MOUTH TWICE A DAY FOR ACNE WITH A FULL MEAL AND GLASS OF WATER. ORAL DISCONT INUED BY PROVIDE R 01/25/2024 [id number] 4 Antonio JUNG HALIDA 2023 60 [facility] DOXYCYCLINE HYCLATE 100MG TAB TAKE ONE TABLET BY MOUTH TWICE A DAY WITH A FULL MEAL AND GLASS OF WATER. ORAL DISCONT INUED (EDIT) 12/29/2023 [id number] 4 Antonio JUNG HALIDA 2023 60 [facility] DOXYCYCLINE HYCLATE 100MG TAB TAKE ONE TABLET BY MOUTH TWICE A DAY FOR ACNE WITH A FULL MEAL AND GLASS OF WATER. ORAL DISCONT INUED 12/02/2023 [id number] 4 Morgan EVANS 2023 60 [facility] FLUTICASONE PROPIONATE 50MCG/SPRAY SOLN,NASAL, 16GM INSTILL 2 SPRAYS IN NOSTRIL( S) ONCE A DAY (MUST BE USED DIRECTED FOR MINIMUM OF 21 DAYS TO PROVIDE ADEQUATE BENEFITS ) NASAL ACTIVE 11/29/2024 [id number] 4 Antonio JUNG HALIDA 2023 1 [facility] GABAPENTIN 100MG CAP TAKE ONE CAPSULE BY MOUTH AT BEDTIME FOR ITCH ORAL DISCONT INUED BY PROVIDE R 04/12/2025 [id number] 4 Samm COUCH B 2023 90 [facility] GLIMEPIRIDE 4MG TAB TAKE ONE TABLET BY MOUTH ONCE A DAY FOR DIABETES WITH FOOD ORAL ACTIVE 11/29/2024 [id number] 5 Antonio JUNG HALIDA 2023 90 [facility] GLIMEPIRIDE 4MG TAB TAKE ONE TABLET BY MOUTH ONCE A DAY FOR DIABETES WITH FOOD ORAL DISCONT INUED 10/24/2023 [id number] 4 VIKI THORNE M 2022 90 [facility] HYDROCHLORO THIAZIDE 12.5MG/SAIRA NOPRIL 10MG TAB TAKE 1 TABLET BY MOUTH EVERY MORNING FOR HEART OR BLOOD PRESSURE ORAL ACTIVE 11/29/2024 [id number] 5 QALBANI,K HALIDA 2023 90 [facility] HYDROCHLORO THIAZIDE 12.5MG/SAIRA NOPRIL 10MG TAB TAKE 1 TABLET BY MOUTH EVERY MORNING FOR HEART OR BLOOD PRESSURE ORAL DISCONT INUED 08/30/2023 [id number] 4 QATitusBANIK HALIDA 2022 90 [facility] HYDROCORTIS ONE 2.5% CREAM,TOP APPLY SPARINGL Y TO AFFECTED AREA(S) ONCE A DAY NEEDED FOR EXTERNAL USE ONLY. APPLY SPARINGL Y. TOPICA L ACTIVE 12/27/2024 [id number] 4 Samm COUCH B 2023 30 [facility] HYDROCORTIS ONE 2.5% CREAM,TOP APPLY SPARINGL Y TO AFFECTED AREA(S) ONCE A DAY NEEDED FOR EXTERNAL USE ONLY. APPLY SPARINGL Y. TOPICA L DISCONT INUED 12/14/2024 [id number] 4 Antonio JUNG HALIDA 2023 30 [facility] INSULIN,ASP ART,HUMAN (EQV-NOVOLO G) 100 UNIT/ML,FLE XPEN,3ML INJECT 10 UNITS UNDER THE SKIN THREE TIMES A DAY BEFORE MEALS FOR DIABETES ADMINIST ER 10 MINUTES BEFORE FOOD DIRECTED . REFRIGER ATE UN-OPENE D PENS. DISCARD CARTRIDG E 28 DAYS AFTER OPENING. SUBCUT ANEOUS ACTIVE 12/14/2024 [id number] OSIEL SINGH M 2023 5 [facility] INSULIN,GLA RGINE,HUMAN 100 UNIT/ML INJ,SOLOSTA R,3ML INJECT 40 UNITS UNDER THE SKIN AT BEDTIME FOR BLOOD SUGAR CONTROL. ADMINIST ER AT SAME TIME EACH DAY DIRECTED . DISCARD ANY OPEN CARTRIDG E AFTER 28 DAYS. SUBCUT ANEOUS 10/24/2023 [id number] 4 [facility] IE M 2023 5 [facility] INSULIN,GLA RGINE-YFGN 100UNIT/ML INJ PEN,3ML INJECT 40 UNITS UNDER THE SKIN AT BEDTIME FOR BLOOD SUGAR CONTROL. ADMINIST ER AT SAME TIME EACH DAY DIRECTED . DISCARD ANY OPEN CARTRIDG E AFTER 28 DAYS. SUBCUT ANEOUS ACTIVE 11/29/2024 [id number] 4 Antonio JUNG HALIDA 2023 5 [facility] INSULIN,GLA RGINE-YFGN 100UNIT/ML INJ PEN,3ML INJECT 40 UNITS UNDER THE SKIN AT BEDTIME FOR BLOOD SUGAR CONTROL. ADMINIST ER AT SAME TIME EACH DAY DIRECTED . DISCARD ANY OPEN CARTRIDG E AFTER 28 DAYS. SUBCUT ANEOUS DISCONT INUED 10/24/2023 [id number] [facility] M 2022 15 [facility] MULTIVITAMI NS CAP/TAB TAKE ONE TABLET BY MOUTH ONCE A DAY ORAL ACTIVE ABIODUN PALMER 2016 [facility] POTASSIUM CHLORIDE 20MEQ TAB,SA (DISPERSIBL E) TAKE ONE-HALF TABLET BY MOUTH ONCE A DAY FOR JALENU M SUPPLEME NTATION TAKE WITH FOOD ORAL ACTIVE 11/29/2024 [id number] 4 Antonio JUNG HALIDA 2023 45 [facility] SITAGLIPTIN (EQV-ZITUVI O) 50MG TAB TAKE ONE TABLET BY MOUTH ONCE A DAY FOR DIABETES REPLACES ALOGLIPT IN ORAL SUSPEND ED 03/01/2025 [id number] 5 OSIEL SINGH 2023 90 [facility] SULFACETAMI DE NA 10% SUSP,TOP APPLY SMALL AMOUNT TO AFFECTED AREA(S) TWICE A DAY (SHAKE WELL) (EXTERNA L USE ONLY) TOPICA L ACTIVE 12/14/2024 [id number] 4 Antonio JUNG HALIDA 2023 120 [facility] SULFACETAMI DE NA 10% SUSP,TOP APPLY SMALL AMOUNT TO AFFECTED AREA(S) TWICE A DAY (SHAKE WELL) (EXTERNA L USE ONLY) TOPICA L 09/30/2023 [id number] 4 Samm COUCH 2022 120 [facility] TACROLIMUS 0.1% OINT,TOP APPLY SPARINGL Y TO AFFECTED AREA(S) ONCE A DAY (EXTERNA L USE ONLY) TOPICA L ACTIVE 08/12/2025 [id number] 5 DINAH ARYO 2024 30 [facility] TACROLIMUS 0.1% OINT,TOP APPLY LIGHTLY TO AFFECTED AREA(S) ONCE A DAY FOR FACE (EXTERNA L USE ONLY) TOPICA L 05/26/2024 [id number] 4 MERRILL LOPEZ SA 2022 30 [facility] TRETINOIN 0.025% CREAM,TOP APPLY LIGHTLY TO AFFECTED AREA(S) NIGHTLY FOR RASH TOPICA L DISCONT INUED BY RADHA Trujillo 04/12/2025 [id number] 4 Samm COUCH 2023 45 [facility] Allergies, Adverse Reactions, Alerts Combined list of allergies from Department of Defense and Veterans Affairs facilities. It does not include entries that were removed or entered in error. Substance Category Reaction Severity Reaction type Status Date Reported Comments Source EGGS Propensity to adverse reactions to substance (finding) Nausea and vomiting active 7 [facility] EMPAGLIFLOZIN Propensity to adverse reactions to drug (finding) Eruption active 1 [facility] METFORMIN Propensity to adverse reactions to drug (finding) Headache active 7 [facility] No Known Allergies Drug allergy (disorder) active 8 [facility] PENICILLIN Propensity to adverse reactions to drug (finding) Cramp active 4 [facility] Immunizations Combined list of available immunizations from the Department of Defense and Veterans Affairs facilities. Immunization Series Date Given Administered By Site Reaction Lot Number CVX Code Drug Label Sewer Status Comments Source COVID-19 (PFIZER), MRNA, LNP-S, PF, LOIS-SUCROSE, 30 MCG/0.3 ML (AGES 12+ YEARS) 2023 ENLIDA ESCAMILLA E RIGHT DELTO ID [id number] 309 complet ed [facility] INFLUENZA, SPLIT VIRUS, TRIVALENT, PF 2023 NELIDA ESCAMILLA E LEFT DELTO ID [id number] 140 complet ed [facility] PNEUMOCOCCAL CONJUGATE PCV20, POLYSACCHARID E [id number] CONJUGATE, ADJUVANT, PF 2021 216 complet ed [facility] ZOSTER RECOMBINANT 1 2021 187 complet ed [facility] COVID-19 (PFIZER), MRNA, LNP-S, PF, 30 MCG/0.3 ML DOSE 3 2020 208 complet ed PFR; [id number]; 2 [facility] COVID-19 (Metacafe), MRNA, LNP-S, PF, 30 MCG/0.3 ML DOSE 2 2020 208 complet ed PFR; [id number]; 1 [facility] COVID-19 (Metacafe), MRNA, LNP-S, PF, 30 MCG/0.3 ML DOSE 1 2020 208 complet ed PFR; [id number]; 1 [facility] PNEUMOCOCCAL POLYSACCHARID E [id number] 2018 33 complet ed [facility] TDAP 2009 115 complet ed Left Deltoid [facility] Results Combined list of recent chemistry, hematology and other laboratory results from Department of Defense and Veterans Affairs, ranging from 15 months to all on record, depending upon the facility. Order Name Results Value Reference Range Date Interpretation Specimen Comments Source MICRAL/CR EAT PROFILE (STL) ALBUMIN [MASS/VOLUM E] IN URINE 12.9 mg/L 04/11 Specimen Type: URINE No comment entered. Ordering Provider: MARSHALL JUNG Report Released Date/Time: Apr 10, 2024 08:49 AM Reporting Lab: [facility] [address] [place], [place] [phone] Performing Lab: [place] [phone] [facility] MICRAL/CR EAT PROFILE (STL) ALBUMIN/CRE ATININE [MASS RATIO] IN URINE 8 mg/g 0 - 29 04/11 Specimen Type: URINE No comment entered. Ordering Provider: MARSHALL JUNG Report Released Date/Time: Apr 10, 2024 08:49 AM Reporting Lab: [place] [address] Performing Lab: [address] [facility] MICRAL/CR EAT PROFILE (STL) CREATININE [MASS/VOLUM E] IN URINE 154.4 mg/dL 47 - 110 04/11 H Specimen Type: URINE No comment entered. Ordering Provider: MARSHALL JUNG Report Released Date/Time: Apr 10, 2024 08:49 AM Reporting Lab: [place] [phone] Performing Lab: [address] [facility] URINALYSI S (STL-PB) COLOR OF URINE Light-Y ellow 04/11 Specimen Type: URINE No comment entered. Ordering Provider: MARSHALL JUNG Report Released Date/Time: Apr 10, 2024 08:49 AM Reporting Lab: [facility] [address] [place], [place] [phone] Performing Lab: [address] [facility] URINALYSI S (STL-PB) BILIRUBIN.T OTAL [PRESENCE] IN URINE BY TEST STRIP Negativ emg/dL 04/11 Specimen Type: URINE No comment entered. Ordering Provider: MARSHALL JUNG Report Released Date/Time: Apr 10, 2024 08:49 AM Reporting Lab: [address] [phone] Performing Lab: [address] [phone] [place] [address] [facility] URINALYSI S (STL-PB) PH OF URINE BY TEST STRIP 6.0 5.0 - 8.0 04/11 Specimen Type: URINE No comment entered. Ordering Provider: MARSHALL JUNG Report Released Date/Time: Apr 10, 2024 08:49 AM Reporting Lab: [place] [phone] Performing Lab: [address] [facility] URINALYSI S (STL-PB) APPEARANCE OF URINE Clear 04/11 Specimen Type: URINE No comment entered. Ordering Provider: MARSHALL JUNG Report Released Date/Time: Apr 10, 2024 08:49 AM Reporting Lab: [address] [phone] Performing Lab: [address] [phone] [place] [address] [facility] URINALYSI S (STL-PB) NITRITE [PRESENCE] IN URINE BY TEST STRIP Negativ emg/dL 04/11 Specimen Type: URINE No comment entered. Ordering Provider: MARSHALL JUNG Report Released Date/Time: Apr 10, 2024 08:49 AM Reporting Lab: [facility] [address] [place] [phone] Performing Lab: [address] [phone] [facility] URINALYSI S (STL-PB) GLUCOSE [MASS/VOLUM E] IN URINE BY TEST STRIP Normalm g/dL 04/11 Specimen Type: URINE No comment entered. Ordering Provider: MARSHALL JUNG Report Released Date/Time: Apr 10, 2024 08:49 AM Reporting Lab: [place] [address] [facility] [phone] Performing Lab: [facility] [address] [place] [phone] [facility] URINALYSI S (STL-PB) PROTEIN [MASS/VOLUM E] IN URINE BY TEST STRIP 10 mg/dL - 20 04/11 H Specimen Type: URINE No comment entered. Ordering Provider: MARSHALL JUNG Report Released Date/Time: Apr 10, 2024 08:49 AM Reporting Lab: [place] [phone] Performing Lab: [address] [phone] [facility] URINALYSI S (L-PB) URN.UROBILI NOGEN Normalm g/dL 04/11 Specimen Type: URINE No comment entered. Ordering Provider: MARSHALL JUNG Report Released Date/Time: Apr 10, 2024 08:49 AM Reporting Lab: [address] [phone] Performing Lab: [facility] [address] [place] [phone] [facility] URINALYSI S (L-PB) HEMOGLOBIN [MASS/VOLUM E] IN URINE BY TEST STRIP Negativ emg/dL 04/11 Specimen Type: URINE No comment entered. Ordering Provider: MARSHALL JUNG Report Released Date/Time: Apr 10, 2024 08:49 AM Reporting Lab: [place] [address] [facility] [address] Performing Lab: [phone] [facility] URINALYSI S (STL-PB) KETONES [MASS/VOLUM E] IN URINE BY TEST STRIP Negativ emg/dL 04/11 Specimen Type: URINE No comment entered. Ordering Provider: MARSHALL JUNG Report Released Date/Time: Apr 10, 2024 08:49 AM Reporting Lab: [place] [address] [facility] [address] Performing Lab: [place] [phone] [facility] URINALYSI S (STL-PB) URN.LEUK.ES T. Negativ emg/dL 04/11 Specimen Type: URINE No comment entered. Ordering Provider: MARSHALL JUNG Report Released Date/Time: Apr 10, 2024 08:49 AM Reporting Lab: [place] [address] Performing Lab: [address] [phone] [facility] URINALYSI S (STL-PB) SPECIFIC GRAVITY OF URINE 1.026 1.005 - 1.029 04/11 Specimen Type: URINE No comment entered. Ordering Provider: MARSHALL JUNG Report Released Date/Time: Apr 10, 2024 08:49 AM Reporting Lab: [address] [phone] Performing Lab: [address] [phone] [facility] HGA1C HEMOGLOBIN A1C/HEMOGLO BIN.TOTAL IN BLOOD 9.2 4.0 - 6.0 04/11 H Specimen Type: BLOOD No comment entered. Ordering Provider: MARSHALL JUNG Report Released Date/Time: Apr 10, 2024 08:48 AM Reporting Lab: [place] [address] [facility] [phone] Performing Lab: [address] [phone] [facility] LIPID PANEL (STL) CHOLESTEROL [MASS/VOLUM E] IN SERUM OR PLASMA 222 mg/dL 0 - 200 04/11 H Specimen Type: PLASMA Comment: No hemolysis noted. Ordering Provider: MARSHALL JUNG Report Released Date/Time: Apr 10, 2024 08:49 AM Reporting Lab: [place] [address] [facility] [phone] Performing Lab: [place] [address] [facility] [phone] [facility] LIPID PANEL (STL) TRIGLYCERID E [MASS/VOLUM E] IN SERUM OR PLASMA 83 mg/dL 0 - 150 04/11 Specimen Type: PLASMA Comment: No hemolysis noted. Ordering Provider: MARSHALL JUNG Report Released Date/Time: Apr 10, 2024 08:49 AM Reporting Lab: [place] [address] [place] [phone] Performing Lab: [place] [address] [facility] [phone] [facility] LIPID PANEL (STL) CHOLESTEROL IN LDL [MASS/VOLUM E] IN SERUM OR PLASMA BY CALCULATION 134 mg/dL 04/11 Specimen Type: PLASMA Comment: No hemolysis noted. Ordering Provider: MARSHALL JUNG Report Released Date/Time: Apr 10, 2024 08:49 AM Reporting Lab: [place] [address] [facility] [id number] Performing Lab: [place] [address] [facility] [id number] [facility] LIPID PANEL (STL) CHOLESTEROL IN HDL [MASS/VOLUM E] IN SERUM OR PLASMA 71 mg/dL 40 04/11 Specimen Type: PLASMA Comment: No hemolysis noted. Ordering Provider: MARSHALL JUNG Report Released Date/Time: Apr 10, 2024 08:49 AM Reporting Lab: [place] [address] [place] [phone] Performing Lab: [facility] [address] [place] [address] [facility] VITAMIN D, 25-HYDROX Y 25-HYDROXYV ITAMIN D3 [MASS/VOLUM E] IN SERUM OR PLASMA 47.9 ng/mL 30 - 96 04/11 Specimen Type: SERUM No comment entered. Ordering Provider: MARSHALL JUNG Report Released Date/Time: Apr 10, 2024 08:49 AM Reporting Lab: [place] [address] Performing Lab: [address] [facility] TSH W/ REFLEX FT4 (STL) THYROTROPIN [UNITS/VOLU ME] IN SERUM OR PLASMA 0.823 u[IU]/m L 0.47 - 5 04/11 Specimen Type: PLASMA No comment entered. Ordering Provider: MARSHALL JUNG Report Released Date/Time: Apr 10, 2024 08:49 AM Reporting Lab: [place] [address] Performing Lab: [address] [facility] COMPREHEN SIVE METABOLIC PANEL CREATININE [MASS/VOLUM E] IN SERUM OR PLASMA 0.93 mg/dL 0.6 - 1.1 04/11 Specimen Type: PLASMA Comment: No hemolysis noted. Ordering Provider: MARSHALL JUNG Report Released Date/Time: Apr 10, 2024 08:48 AM Reporting Lab: [place] [address] Performing Lab: [address] [facility] COMPREHEN SIVE METABOLIC PANEL UREA NITROGEN [MASS/VOLUM E] IN SERUM OR PLASMA 21.3 mg/dL 9.0 - 25.0 04/11 Specimen Type: PLASMA Comment: No hemolysis noted. Ordering Provider: MARSHALL JUNG Report Released Date/Time: Apr 10, 2024 08:48 AM Reporting Lab: [facility] [address] [facility] [address] Performing Lab: [facility] [address] [facility] [address] [facility] COMPREHEN SIVE METABOLIC PANEL GLUCOSE [MASS/VOLUM E] IN SERUM OR PLASMA 155 mg/dL 72 - 99 04/11 H Specimen Type: PLASMA Comment: No hemolysis noted. Ordering Provider: MARSHALL JUNG Report Released Date/Time: Apr 10, 2024 08:48 AM Reporting Lab: [facility] [address] Performing Lab: [place] [address] [facility] [address] [facility] COMPREHEN SIVE METABOLIC PANEL SODIUM [MOLES/VOLU ME] IN SERUM OR PLASMA 141 meq/L 136 - 145 04/11 Specimen Type: PLASMA Comment: No hemolysis noted. Ordering Provider: MARSHALL JUNG Report Released Date/Time: Apr 10, 2024 08:48 AM Reporting Lab: [facility] [address] Performing Lab: [facility] [address] [facility] [address] [facility] COMPREHEN SIVE METABOLIC PANEL POTASSIUM [MOLES/VOLU ME] IN SERUM OR PLASMA 3.8 meq/L 3.5 - 5 04/11 Specimen Type: PLASMA Comment: No hemolysis noted. Ordering Provider: MARSHALL JUNG Report Released Date/Time: Apr 10, 2024 08:48 AM Reporting Lab: [facility] [address] Performing Lab: [facility] [address] [place] [phone] [facility] COMPREHEN SIVE METABOLIC PANEL CHLORIDE [MOLES/VOLU ME] IN SERUM OR PLASMA 105 meq/L 98 - 107 04/11 Specimen Type: PLASMA Comment: No hemolysis noted. Ordering Provider: MARSHALL JUNG Report Released Date/Time: Apr 10, 2024 08:48 AM Reporting Lab: [facility] [address] [place] [phone] Performing Lab: [facility] [address] [facility] [phone] [place] [address] [facility]OC COMPREHEN SIVE METABOLIC PANEL CARBON DIOXIDE, TOTAL [MOLES/VOLU ME] IN SERUM OR PLASMA 27 meq/L 22 - 31 04/11 Specimen Type: PLASMA Comment: No hemolysis noted. Ordering Provider: MARSHALL JUNG Report Released Date/Time: Apr 10, 2024 08:48 AM Reporting Lab: [facility] [address] [place] [address] Performing Lab: [facility] [address] [facility] [phone] [place] [address] CBOC COMPREHEN SIVE METABOLIC PANEL CALCIUM [MASS/VOLUM E] IN SERUM OR PLASMA 10.2 mg/dL 8.4 - 10.4 04/11 Specimen Type: PLASMA Comment: No hemolysis noted. Ordering Provider: MARSHALL JUNG Report Released Date/Time: Apr 10, 2024 08:48 AM Reporting Lab: [facility] [address] [facility] [address] Performing Lab: [facility] [address] [facility] [phone] [place] [address] [facility]OC COMPREHEN SIVE METABOLIC PANEL PROTEIN [MASS/VOLUM E] IN SERUM OR PLASMA 7.7 g/dL 6 - 8.6 04/11 Specimen Type: PLASMA Comment: No hemolysis noted. Ordering Provider: MARSHALL JUNG Report Released Date/Time: Apr 10, 2024 08:48 AM Reporting Lab: [facility] [address] [facility] [address] Performing Lab: [facility] [address] [facility] [address] [facility] COMPREHEN SIVE METABOLIC PANEL ALBUMIN [MASS/VOLUM E] IN SERUM OR PLASMA 4.7 g/dL 3.4 - 5 04/11 Specimen Type: PLASMA Comment: No hemolysis noted. Ordering Provider: MARSHALL JUNG Report Released Date/Time: Apr 10, 2024 08:48 AM Reporting Lab: [facility] [address] [facility] [address] Performing Lab: [facility] [address] [facility] [address] [facility] COMPREHEN SIVE METABOLIC PANEL BILIRUBIN.T OTAL [MASS/VOLUM E] IN SERUM OR PLASMA 0.9 mg/dL 0.2 - 1.2 04/11 Specimen Type: PLASMA Comment: No hemolysis noted. Ordering Provider: MARSHALL JUNG Report Released Date/Time: Apr 10, 2024 08:48 AM Reporting Lab: [place] [address] [facility] [address] Performing Lab: [facility] [address] [facility] [address] [facility] COMPREHEN SIVE METABOLIC PANEL ALKALINE PHOSPHATASE [ENZYMATIC ACTIVITY/VO LUME] IN SERUM OR PLASMA 109 U/L 40 - 150 04/11 Specimen Type: PLASMA Comment: No hemolysis noted. Ordering Provider: MARSHALL JUNG Report Released Date/Time: Apr 10, 2024 08:48 AM Reporting Lab: [address] [address] Performing Lab: [place] [address] [facility] [address] [facility] COMPREHEN SIVE METABOLIC PANEL ASPARTATE AMINOTRANSF ERASE [ENZYMATIC ACTIVITY/VO LUME] IN SERUM OR PLASMA 19 U/L 5 - 34 04/11 Specimen Type: PLASMA Comment: No hemolysis noted. Ordering Provider: MARSHALL JUNG Report Released Date/Time: Apr 10, 2024 08:48 AM Reporting Lab: [place] [address] [facility] [address] Performing Lab: [facility] [address] [facility] COMPREHEN SIVE METABOLIC PANEL ALANINE AMINOTRANSF ERASE [ENZYMATIC ACTIVITY/VO LUME] IN SERUM OR PLASMA 19 U/L 8 - 40 04/11 Specimen Type: PLASMA Comment: No hemolysis noted. Ordering Provider: MARSHALL JUNG Report Released Date/Time: Apr 10, 2024 08:48 AM Reporting Lab: [facility] [address] [place] [address] Performing Lab: [facility] [address] [facility] COMPREHEN SIVE METABOLIC PANEL GLOMERULAR FILTRATION RATE/1.73 SQ M.PREDICTED [VOLUME RATE/AREA] IN SERUM, PLASMA OR BLOOD BY CREATININE- BASED FORMULA (CKD-EPI 2020) 70.8 60 04/11 Specimen Type: PLASMA Comment: No hemolysis noted. Ordering Provider: MARSHALL JUNG Report Released Date/Time: Apr 10, 2024 08:48 AM Reporting Lab: [facility] [address] [place] [address] Performing Lab: [place] [address] [facility] CBC LEUKOCYTES [#/VOLUME] IN BLOOD BY AUTOMATED COUNT 8.1 10*3/uL 3.6 - 11.2 04/11 Specimen Type: BLOOD No comment entered. Ordering Provider: MARSHALL JUNG Report Released Date/Time: Apr 10, 2024 08:49 AM Reporting Lab: [facility] [address] [place] [phone] Performing Lab: [facility] [address] [place] [phone] [facility] CBC ERYTHROCYTE S [#/VOLUME] IN BLOOD BY AUTOMATED COUNT 4.96 10*6/uL 3.60 - 5.00 04/11 Specimen Type: BLOOD No comment entered. Ordering Provider: MARSHALL JUNG Report Released Date/Time: Apr 10, 2024 08:49 AM Reporting Lab: [facility] [address] [facility] [address] Performing Lab: [address] [address] [facility] CBC HEMOGLOBIN [MASS/VOLUM E] IN BLOOD 13.5 g/dL 11.0 - 14.9 04/11 Specimen Type: BLOOD No comment entered. Ordering Provider: MARSHALL JUNG Report Released Date/Time: Apr 10, 2024 08:49 AM Reporting Lab: [address] [address] Performing Lab: [address] [phone] [place] [address] [facility]OC CBC HEMATOCRIT [VOLUME FRACTION] OF BLOOD 42.3 32.6 - 43.4 04/11 Specimen Type: BLOOD No comment entered. Ordering Provider: MARSHALL JUNG Report Released Date/Time: Apr 10, 2024 08:49 AM Reporting Lab: [address] [address] Performing Lab: [address] [phone] [place] [address] [facility]OC CBC MCV [ENTITIC VOLUME] BY AUTOMATED COUNT 85.3 fL 80.0 - 100.0 04/11 Specimen Type: BLOOD No comment entered. Ordering Provider: MARSHALL JUNG Report Released Date/Time: Apr 10, 2024 08:49 AM Reporting Lab: [facility] [address] [place] [phone] Performing Lab: [address] [address] [facility] CBC MCH [ENTITIC MASS] BY AUTOMATED COUNT 27.2 pg 27.0 - 34.0 04/11 Specimen Type: BLOOD No comment entered. Ordering Provider: MARSHALL JUNG Report Released Date/Time: Apr 10, 2024 08:49 AM Reporting Lab: [facility] [address] [place] [phone] Performing Lab: [facility] [address] [facility] CBC MCHC [MASS/VOLUM E] BY AUTOMATED COUNT 31.9 g/dL 33.0 - 36.0 04/11 L Specimen Type: BLOOD No comment entered. Ordering Provider: MARSHALL JUNG Report Released Date/Time: Apr 10, 2024 08:49 AM Reporting Lab: [place] [address] [facility] [address] Performing Lab: [address] [phone] [facility] CBC PLATELETS [#/VOLUME] IN BLOOD BY AUTOMATED COUNT 234 10*3/uL 150 - 400 04/11 Specimen Type: BLOOD No comment entered. Ordering Provider: MARSHALL JUNG Report Released Date/Time: Apr 10, 2024 08:49 AM Reporting Lab: [place] [address] [facility] [address] Performing Lab: [address] [phone] [place] [address] CBOC CBC PLATELET MEAN VOLUME [ENTITIC VOLUME] IN BLOOD BY AUTOMATED COUNT 12.9 fL 7.5 - 11.2 04/11 H Specimen Type: BLOOD No comment entered. Ordering Provider: MARSHALL JUNG Report Released Date/Time: Apr 10, 2024 08:49 AM Reporting Lab: [facility] [address] Performing Lab: [address] [address] [facility] CBC ERYTHROCYTE DISTRIBUTIO N WIDTH [RATIO] BY AUTOMATED COUNT 13.2 11.8 - 15.1 04/11 Specimen Type: BLOOD No comment entered. Ordering Provider: MARSHALL JUNG Report Released Date/Time: Apr 10, 2024 08:49 AM Reporting Lab: [facility] [address] [place] [phone] Performing Lab: [facility] [address] [facility] [address] [facility] CBC LYMPHOCYTES /100 LEUKOCYTES IN BLOOD BY AUTOMATED COUNT 50 04/11 Specimen Type: BLOOD No comment entered. Ordering Provider: MARSHALL JUNG Report Released Date/Time: Apr 10, 2024 08:49 AM Reporting Lab: [facility] [address] [facility] [address] Performing Lab: [facility] [address] [facility] [address] [facility] CBC MONOCYTES/1 00 LEUKOCYTES IN BLOOD BY AUTOMATED COUNT 6 04/11 Specimen Type: BLOOD No comment entered. Ordering Provider: MARSHALL JUNG Report Released Date/Time: Apr 10, 2024 08:49 AM Reporting Lab: [facility] [address] [facility] [address] Performing Lab: [facility] [address] [facility] [address] [facility] CBC NEUTROPHILS /100 LEUKOCYTES IN BLOOD BY AUTOMATED COUNT 40 04/11 Specimen Type: BLOOD No comment entered. Ordering Provider: MARSHALL JUNG Report Released Date/Time: Apr 10, 2024 08:49 AM Reporting Lab: [facility] [address] [facility] [address] Performing Lab: [facility] [address] [facility] [address] [facility] CBC EOSINOPHILS /100 LEUKOCYTES IN BLOOD BY AUTOMATED COUNT 3 04/11 Specimen Type: BLOOD No comment entered. Ordering Provider: MARSHALL JUNG Report Released Date/Time: Apr 10, 2024 08:49 AM Reporting Lab: [facility] [address] [facility] [address] Performing Lab: [facility] [address] [facility] [address] [facility] CBC BASOPHILS/1 00 LEUKOCYTES IN BLOOD BY AUTOMATED COUNT 1 04/11 Specimen Type: BLOOD No comment entered. Ordering Provider: MARSHALL JUNG Report Released Date/Time: Apr 10, 2024 08:49 AM Reporting Lab: [facility] [address] [place], [place] [phone] Performing Lab: [facility] [address] [place] [phone] [place] [address] [facility] CBC LYMPHOCYTES [#/VOLUME] IN BLOOD BY AUTOMATED COUNT 4.05 10*3/uL 0.77 - 4.50 04/11 Specimen Type: BLOOD No comment entered. Ordering Provider: MARSHALL JUNG Report Released Date/Time: Apr 10, 2024 08:49 AM Reporting Lab: [place] [address] Performing Lab: [place] [phone] [facility] CBC MONOCYTES [#/VOLUME] IN BLOOD BY AUTOMATED COUNT 0.51 10*3/uL 0.19 - 0.80 04/11 Specimen Type: BLOOD No comment entered. Ordering Provider: MARSHALL JUNG Report Released Date/Time: Apr 10, 2024 08:49 AM Reporting Lab: [facility] [address] [place], [place] [phone] Performing Lab: [place] [phone] [facility] CBC NEUTROPHILS [#/VOLUME] IN BLOOD BY AUTOMATED COUNT 3.24 10*3/uL 2.10 - 8.00 04/11 Specimen Type: BLOOD No comment entered. Ordering Provider: MARSHALL JUNG Report Released Date/Time: Apr 10, 2024 08:49 AM Reporting Lab: [facility] [address] [place], [place] [phone] Performing Lab: [address] [phone] [facility] CBC EOSINOPHILS [#/VOLUME] IN BLOOD BY AUTOMATED COUNT 0.24 10*3/uL 0.00 - 0.60 04/11 Specimen Type: BLOOD No comment entered. Ordering Provider: MARSHALL JUNG Report Released Date/Time: Apr 10, 2024 08:49 AM Reporting Lab: [facility] [address] Performing Lab: [place] [phone] [place] [address] [facility]OC CBC BASOPHILS [#/VOLUME] IN BLOOD BY AUTOMATED COUNT 0.04 10*3/uL 0.00 - 0.20 04/11 Specimen Type: BLOOD No comment entered. Ordering Provider: MARSHALL JUNG Report Released Date/Time: Apr 10, 2024 08:49 AM Reporting Lab: [place] [phone] Performing Lab: [place] [phone] CB GLUCOSE,B LOOD-poct (STL) GLUCOSE [MASS/VOLUM E] IN BLOOD BY AUTOMATED TEST STRIP 331 mg/dL 72 - 99 04/04 H Specimen Type: BLOOD Comment: Test Performed by: [id number] Meter #: [id number] Ordering Provider: MARSHALL JUNG Report Released Date/Time: Apr 04, 2024 02:12 PM Reporting Lab: [place] [id number] [facility] [address] Performing Lab: [place] [address] [facility] [address] [facility] URINALYSI S (STL-PB) COLOR OF URINE Yellow 11/29 Specimen Type: URINE Comment: High concentrati ons of glucose and protein affect specific gravity. Therefore, specific gravity is corrected using the concentrati ons of glucose and protein obtained from test strip measurement . Very high concentrati ons of glucose (>1000 mg/dL) or protein (>600 mg/dL) in the urine may affect the reliability of the specific gravity results. Clinical correlation is suggested. Ordering Provider: MARSHALL JUNG Report Released Date/Time: November 29, 2023 11:50 AM Reporting Lab: [place] [address] Performing Lab: [place] [phone] [place] [address] [facility]OC URINALYSI S (STL-PB) BILIRUBIN.T OTAL [PRESENCE] IN URINE BY TEST STRIP Negativ emg/dL 11/29 Specimen Type: URINE Comment: High concentrati ons of glucose and protein affect specific gravity. Therefore, specific gravity is corrected using the concentrati ons of glucose and protein obtained from test strip measurement . Very high concentrati ons of glucose (>1000 mg/dL) or protein (>600 mg/dL) in the urine may affect the reliability of the specific gravity results. Clinical correlation is suggested. Ordering Provider: MARSHALL JUNG Report Released Date/Time: November 29, 2023 11:50 AM Reporting Lab: [place] [address] Performing Lab: [place] [address] [facility] URINALYSI S (STL-PB) PH OF URINE BY TEST STRIP 5.5 5.0 - 8.0 11/29 Specimen Type: URINE Comment: High concentrati ons of glucose and protein affect specific gravity. Therefore, specific gravity is corrected using the concentrati ons of glucose and protein obtained from test strip measurement . Very high concentrati ons of glucose (>1000 mg/dL) or protein (>600 mg/dL) in the urine may affect the reliability of the specific gravity results. Clinical correlation is suggested. Ordering Provider: MARSHALL JUNG Report Released Date/Time: November 29, 2023 11:50 AM Reporting Lab: [place] [phone] Performing Lab: [place] [phone] [place] [address] [facility] URINALYSI S (STL-PB) LEUKOCYTES [#/AREA] IN URINE SEDIMENT BY MICROSCOPY HIGH POWER FIELD 2 /[HPF] 0 - 5 11/29 Specimen Type: URINE Comment: High concentrati ons of glucose and protein affect specific gravity. Therefore, specific gravity is corrected using the concentrati ons of glucose and protein obtained from test strip measurement . Very high concentrati ons of glucose (>1000 mg/dL) or protein (>600 mg/dL) in the urine may affect the reliability of the specific gravity results. Clinical correlation is suggested. Ordering Provider: MARSHALL JUNG Report Released Date/Time: November 29, 2023 11:50 AM Reporting Lab: [facility] [address] [place] [address] Performing Lab: [address] URINALYSI S (STL-PB) ERYTHROCYTE S [#/VOLUME] IN URINE SEDIMENT BY MICROSCOPY HIGH POWER FIELD 2 /[HPF] 0 - 5 11/29 Specimen Type: URINE Comment: High concentrati ons of glucose and protein affect specific gravity. Therefore, specific gravity is corrected using the concentrati ons of glucose and protein obtained from test strip measurement . Very high concentrati ons of glucose (>1000 mg/dL) or protein (>600 mg/dL) in the urine may affect the reliability of the specific gravity results. Clinical correlation is suggested. Ordering Provider: MARSHALL JUNG Report Released Date/Time: November 29, 2023 11:50 AM Reporting Lab: [facility] [address] [place] [address] Performing Lab: [facility] [address] [place], [place] [phone] [facility] URINALYSI S (STL-PB) APPEARANCE OF URINE Clear 11/29 Specimen Type: URINE Comment: High concentrati ons of glucose and protein affect specific gravity. Therefore, specific gravity is corrected using the concentrati ons of glucose and protein obtained from test strip measurement . Very high concentrati ons of glucose (>1000 mg/dL) or protein (>600 mg/dL) in the urine may affect the reliability of the specific gravity results. Clinical correlation is suggested. Ordering Provider: MARSHALL JUNG Report Released Date/Time: November 29, 2023 11:50 AM Reporting Lab: [place] [phone] Performing Lab: [place] [phone] [facility] URINALYSI S (STL-PB) NITRITE [PRESENCE] IN URINE BY TEST STRIP Negativ emg/dL 11/29 Specimen Type: URINE Comment: High concentrati ons of glucose and protein affect specific gravity. Therefore, specific gravity is corrected using the concentrati ons of glucose and protein obtained from test strip measurement . Very high concentrati ons of glucose (>1000 mg/dL) or protein (>600 mg/dL) in the urine may affect the reliability of the specific gravity results. Clinical correlation is suggested. Ordering Provider: MARSHALL JUNG Report Released Date/Time: November 29, 2023 11:50 AM Reporting Lab: [place] [address] Performing Lab: [address] [facility] URINALYSI S (STL-PB) EPITHELIAL CELLS [#/AREA] IN URINE SEDIMENT BY MICROSCOPY LOW POWER FIELD 1 /[HPF] 0 - 5 11/29 Specimen Type: URINE Comment: High concentrati ons of glucose and protein affect specific gravity. Therefore, specific gravity is corrected using the concentrati ons of glucose and protein obtained from test strip measurement . Very high concentrati ons of glucose (>1000 mg/dL) or protein (>600 mg/dL) in the urine may affect the reliability of the specific gravity results. Clinical correlation is suggested. Ordering Provider: MARSHALL JUNG Report Released Date/Time: November 29, 2023 11:50 AM Reporting Lab: [place] [phone] Performing Lab: [address] [phone] [place] [address] [facility] URINALYSI S (STL-PB) MUCUS [PRESENCE] IN URINE SEDIMENT BY LIGHT MICROSCOPY RARE/[L PF] 11/29 Specimen Type: URINE Comment: High concentrati ons of glucose and protein affect specific gravity. Therefore, specific gravity is corrected using the concentrati ons of glucose and protein obtained from test strip measurement . Very high concentrati ons of glucose (>1000 mg/dL) or protein (>600 mg/dL) in the urine may affect the reliability of the specific gravity results. Clinical correlation is suggested. Ordering Provider: MARSHALL JUNG Report Released Date/Time: November 29, 2023 11:50 AM Reporting Lab: [place] [address] Performing Lab: [address] URINALYSI S (L-PB) HYALINE CASTS [#/AREA] IN URINE SEDIMENT BY MICROSCOPY LOW POWER FIELD 32 /[LPF] 0 - 5 11/29 Specimen Type: URINE Comment: High concentrati ons of glucose and protein affect specific gravity. Therefore, specific gravity is corrected using the concentrati ons of glucose and protein obtained from test strip measurement . Very high concentrati ons of glucose (>1000 mg/dL) or protein (>600 mg/dL) in the urine may affect the reliability of the specific gravity results. Clinical correlation is suggested. Ordering Provider: MARSHALL JUNG Report Released Date/Time: November 29, 2023 11:50 AM Reporting Lab: [place] [address] Performing Lab: [address] URINALYSI S (STL-PB) GLUCOSE [MASS/VOLUM E] IN URINE BY TEST STRIP >mg/dL 11/29 H Specimen Type: URINE Comment: High concentrati ons of glucose and protein affect specific gravity. Therefore, specific gravity is corrected using the concentrati ons of glucose and protein obtained from test strip measurement . Very high concentrati ons of glucose (>1000 mg/dL) or protein (>600 mg/dL) in the urine may affect the reliability of the specific gravity results. Clinical correlation is suggested. Ordering Provider: MARSHALL JUNG Report Released Date/Time: November 29, 2023 11:50 AM Reporting Lab: [facility] [address] [facility] [address] Performing Lab: [facility] [address] [facility] [address] [facility] URINALYSI S (STL-PB) PROTEIN [MASS/VOLUM E] IN URINE BY TEST STRIP 30 mg/dL - 20 11/29 H Specimen Type: URINE Comment: High concentrati ons of glucose and protein affect specific gravity. Therefore, specific gravity is corrected using the concentrati ons of glucose and protein obtained from test strip measurement . Very high concentrati ons of glucose (>1000 mg/dL) or protein (>600 mg/dL) in the urine may affect the reliability of the specific gravity results. Clinical correlation is suggested. Ordering Provider: MARSHALL JUNG Report Released Date/Time: November 29, 2023 11:50 AM Reporting Lab: [facility] [address] [facility] [address] Performing Lab: [place] [address] [facility] [id number] [place] [address] [facility] URINALYSI S (STL-PB) URN.UROBILI NOGEN Normalm g/dL 11/29 Specimen Type: URINE Comment: High concentrati ons of glucose and protein affect specific gravity. Therefore, specific gravity is corrected using the concentrati ons of glucose and protein obtained from test strip measurement . Very high concentrati ons of glucose (>1000 mg/dL) or protein (>600 mg/dL) in the urine may affect the reliability of the specific gravity results. Clinical correlation is suggested. Ordering Provider: MARSHALL JUNG Report Released Date/Time: November 29, 2023 11:50 AM Reporting Lab: [facility] [address] [facility] [address] Performing Lab: [facility] 91 [facility] [address] [facility] URINALYSI S (STL-PB) HEMOGLOBIN [MASS/VOLUM E] IN URINE BY TEST STRIP Negativ emg/dL 11/29 Specimen Type: URINE Comment: High concentrati ons of glucose and protein affect specific gravity. Therefore, specific gravity is corrected using the concentrati ons of glucose and protein obtained from test strip measurement . Very high concentrati ons of glucose (>1000 mg/dL) or protein (>600 mg/dL) in the urine may affect the reliability of the specific gravity results. Clinical correlation is suggested. Ordering Provider: MARSHALL JUNG Report Released Date/Time: November 29, 2023 11:50 AM Reporting Lab: [place] [address] Performing Lab: [address] URINALYSI S (STL-PB) KETONES [MASS/VOLUM E] IN URINE BY TEST STRIP Tracemg /dL 11/29 Specimen Type: URINE Comment: High concentrati ons of glucose and protein affect specific gravity. Therefore, specific gravity is corrected using the concentrati ons of glucose and protein obtained from test strip measurement . Very high concentrati ons of glucose (>1000 mg/dL) or protein (>600 mg/dL) in the urine may affect the reliability of the specific gravity results. Clinical correlation is suggested. Ordering Provider: MARSHALL JUNG Report Released Date/Time: November 29, 2023 11:50 AM Reporting Lab: [place] [address] Performing Lab: [address] URINALYSI S (L-PB) URN.LEUK.ES T. Negativ emg/dL 11/29 Specimen Type: URINE Comment: High concentrati ons of glucose and protein affect specific gravity. Therefore, specific gravity is corrected using the concentrati ons of glucose and protein obtained from test strip measurement . Very high concentrati ons of glucose (>1000 mg/dL) or protein (>600 mg/dL) in the urine may affect the reliability of the specific gravity results. Clinical correlation is suggested. Ordering Provider: MARSHALL JUNG Report Released Date/Time: November 29, 2023 11:50 AM Reporting Lab: [facility] 915 [facility] [address] Performing Lab: [place] [address] [facility] [address] [facility] URINALYSI S (STL-PB) SPECIFIC GRAVITY OF URINE 1.036 1.005 - 1.029 11/29 H Specimen Type: URINE Comment: High concentrati ons of glucose and protein affect specific gravity. Therefore, specific gravity is corrected using the concentrati ons of glucose and protein obtained from test strip measurement . Very high concentrati ons of glucose (>1000 mg/dL) or protein (>600 mg/dL) in the urine may affect the reliability of the specific gravity results. Clinical correlation is suggested. Ordering Provider: MARSHALL JUNG Report Released Date/Time: November 29, 2023 11:50 AM Reporting Lab: [facility] 915 [facility] [address] Performing Lab: [place] [address] [facility] [id number] [place] [address] Vital Signs Combined list of inpatient and outpatient Vital Signs from Department of Defense and Veterans Affairs, ranging from 12 months to all on record, depending upon the facility. Vital Sign Value Date Comments Source SYSTOLIC BLOOD PRESSURE 142 04/04/2024 10:49:45 [facility] DIASTOLIC BLOOD PRESSURE 84 04/04/2024 10:49:45 [facility] PULSE OXIMETRY 98 04/04/2024 10:49:45 S Kunal [facility] WEIGHT 164.8 04/04/2024 10:49:45 [facility] BMI 33 kg/m2 04/04/2024 10:49:45 [facility] PAIN 7 04/04/2024 10:49:45 [facility] HEIGHT 59 04/04/2024 10:49:45 [facility] TEMPERATURE 97.8 04/04/2024 10:49:45 [facility] PULSE 92 04/04/2024 10:49:45 [facility] RESPIRATION 16 04/04/2024 10:49:45 [facility] SYSTOLIC BLOOD PRESSURE 97 12/13/2023 12:00:00 [facility] DIASTOLIC BLOOD PRESSURE 68 12/13/2023 12:00:00 [facility] PULSE 61 12/13/2023 12:00:00 [facility] SYSTOLIC BLOOD PRESSURE 114 11/29/2023 11:08:25 [facility] DIASTOLIC BLOOD PRESSURE 75 11/29/2023 11:08:25 [facility] PULSE OXIMETRY 99 11/29/2023 11:08:25 Michael [facility] WEIGHT 169 11/29/2023 11:08:25 [facility] BMI 34 kg/m2 11/29/2023 11:08:25 [facility] PAIN 8 11/29/2023 11:08:25 [facility] TEMPERATURE 97.4 11/29/2023 11:08:25 [facility] PULSE 95 11/29/2023 11:08:25 [facility] RESPIRATION 20 11/29/2023 11:08:25 [facility] SYSTOLIC BLOOD PRESSURE 153 10/29/2023 08:22:36 [facility] DIASTOLIC BLOOD PRESSURE 78 10/29/2023 08:22:36 [facility] PULSE OXIMETRY 98 10/29/2023 08:22:36 Michael SIDDIQUI [facility] WEIGHT 181.8 10/29/2023 08:22:36 Titus F[facility]END [facility] BMI 37 kg/m2 10/29/2023 08:22:36 [facility] Titus F[facility]END [facility] PAIN 7 10/29/2023 08:22:36 [facility]itus [facility]END [facility] HEIGHT 59 10/29/2023 08:22:36 [facility] Titus FRIEND [facility] TEMPERATURE 97 10/29/2023 08:22:36 [facility] PULSE 87 10/29/2023 08:22:36 [facility] RESPIRATION 16 10/29/2023 08:22:36 [facility] Encounters Combined list of: 1) Encounters from Department of Veterans Affairs facilities going backup to the last 18 months, not all VA inpatient encounters are included; 2) Encounters from the Department of Defense facilities going backup to 280 months. Location Location Details Encounter Type Encounter Number Reason For Visit Attending Provider ADM Date DC Date Status Disposition Source [address] [place] [address] Heriberto GOMEZB ([facility]Pt Neuromusc uloskelet al Clinic) OUTPATIENT [id number] Left Medial Plica, patella r femoral syndrom e PHILLMARGYALEX Trujillo R 11/27 Released w/o Limitations [address] [place] [address] Heriberto GOMEZB ([facility]P t Neuromu sculosk eletal Clinic) [address] [place] [address] [facility]Phy sical Therapy) OUTPATIENT [id number] HIRAM SWEET 12/10 Released w/o Limitations [address] [place] [address] [facility]P hysical Therapy ) [address] [place] [address] [facility]Phy sical Therapy) OUTPATIENT [id number] LEONID SANDS 12/16 Released w/o Limitations [address] [place] [address] [employer] ([facility]P hysical Therapy ) [address] [place] [address] [employer] ([facility]Phy sical Therapy) OUTPATIENT [id number] TIERA GROVE 12/18 Released w/o Limitations [address] [place] [address] [employer] ([facility]P hysical Therapy ) [address] [place] [address] [facility]Phy sical Therapy) OUTPATIENT [id number] HIRAM SWEET [facility] 12/19 Released w/o Limitations [address] [place] [address] [employer] ([facility]P hysical Therapy ) [facility] Outpatient Encounter [id number] JOHANNE THORNE 03/31 [facility] Outpatient Encounter [id number] 04/01 [facility] OFFICE O/P EST LOW 20-29 MIN [id number] Diagnos is: ICD-10- CM S92.411 G Disp fx of prox phalanx of r great toe, 7thG BERRY FORD 04/01 [facility] Outpatient Encounter [id number] EV COFFEY 04/05 [facility] CB PSYTX W PT 30 MINUTES [id number] Diagnos is: ICD-10- CM F45.1 Undiffe rentiat ed somatof orm disorde r SARAH RODRIGUEZ 04/[address] [facility] Outpatient Encounter [id number] SARAH RODRIGUEZ NA 05/12 [facility] Outpatient Encounter [id number] SARAH RODRIGUEZ NA 05/12 [facility] Outpatient Encounter [id number] 05/18 [facility] OFFICE O/P EST LOW 20-29 MIN [id number] Diagnos is: ICD-10- CM H52.13 Myopia, bilJUDY Mckeon 05/26 [facility] OFFICE O/P EST LOW 20-29 MIN [id number] [id number] Diagnos is: ICD-10- CM L70.5 Acne excorie e Bladimir YOST 05/26 [facility] Outpatient Encounter [id number] 05/27 [facility] N [facility] OFFICE O/P EST MOD 30-39 MIN [id number] Diagnos is: ICD-10- CM I10 Essenti al (primar y) hyperte nsion MARYANN PHAN STEN D 05/28 [facility] Outpatient Encounter [id number] 06/02 [facility] [address] [facility] Outpatient Encounter [id number] 06/02 [facility] [address] [facility] Outpatient Encounter [id number] 06/02 [facility] Outpatient Encounter [id number] NADYA JUNG 07/05 [facility] [address] [facility] Outpatient Encounter [id number] 07/09 [facility] OFF/OP CNSLTJ NEW/EST MOD 40 [id number] Diagnos is: ICD-10- CM G56.03 Carpal tunnel syndrom e, bilater al upper limbs NAILA DUNBAR A 07/23 [facility] [address] [facility] THERAPEUTI C ACTIVITIES [id number] Diagnos is: ICD-10- CM G56.21 Lesion of ulnar nerve, right upper limb MUSA AGEE 07/23 [facility] [address] 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 [id number] [id number] Diagnos is: ICD-10- CM M25.579 Pain in unspeci fied ankle and joints of unspeci fied foot Bladimir BERNAL R 09/07 [facility] OFF[facility]P EST HI 40 MIN [id number] [id number] Diagnos is: ICD-10- CM G56.21 Lesion of ulnar nerve, right upper limb NAILA DUNBAR 10/28 [facility] Outpatient Encounter [id number] 10/31 [facility] Outpatient Encounter [id number] 11/01 [facility] Outpatient Encounter [id number] 11/17 [facility] Outpatient Encounter [id number] 11/25 [facility] OFFICE O/P EST MOD 30 MIN [id number] Diagnos is: ICD-10- CM J20.9 Acute bronchi tis, unspeci fied QALBANI,KH SARAH 11/28 [facility] MTMS BY PHARM PRIVATE BRANCH EXCHANGE REPAIRER 15 MIN [id number] [id number] Diagnos is: ICD-10- CM E11.8 Type 2 diabete s mellitu s with unspeci fied complic ations [facility] 12/12 [facility] MTMS BY PHARM ADDL 15 MIN [id number] [id number] Diagnos is: ICD-10- CM E11.8 Type 2 diabete s mellitu s with unspeci fied complic ations [facility] 01/04 [facility] MTMS BY PHARM ADDL 15 MIN [id number] Diagnos is: ICD-10- CM E11.8 Type 2 diabete s mellitu s with unspeci fied complic ations [facility] 02/01 [facility] Outpatient Encounter [id number] 03/03 [facility] Outpatient Encounter [id number] [id number] 03/06 [facility] N [facility] Outpatient Encounter [id number] 03/06 [facility] OFFICE O/P EST MOD 30 MIN [id number] Diagnos is: ICD-10- CM E11.9 Type 2 diabete s mellitu s without complic ations QALBANI,KH SARAH 04/04 [facility] PSYTX W PT 30 MINUTES [id number] [id number] Diagnos is: ICD-10- CM Z63.0 Problem s in relatio nship with spouse or partner DONNA RAI RRI J 04/04 [facility] Outpatient Encounter [id number] 04/05 [facility] Outpatient Encounter [id number] 04/06 [facility] Encounter [id number] [id number] 04/06 [facility] OFFICE O/P EST LOW 20 MIN [id number] [id number] Diagnos is: ICD-10- CM E11.9 Type 2 diabete s mellitu s without complic ations NADYA JUNG SARAH 04/10 [facility] Outpatient Encounter [id number] 04/11 [facility] OFFICE O/P EST MOD 30 MIN [id number] Diagnos is: ICD-10- CM L28.2 Other prurigo AB NIC BY RR 04/11 [facility] Outpatient Encounter [id number] 04/14 [facility] Outpatient Encounter [id number] 04/20 [facility] [id number] 04/25 [facility] O/P EST MOD 30 MIN [id number] [id number] Diagnos is: ICD-10- CM H43.813 Vitreou s degener atjeimy, missy al MURTAZA,MY- ERICA THI 04/26 [facility] Outpatient Encounter [id number] 04/27 [facility] PSYTX W PT 30 MINUTES [id number] [id number] Diagnos is: ICD-10- CM Z60.0 Problem s of adjustm ent to life-cy nga transit ions DONNA RAI RRI J 05/02 [facility] Outpatient Encounter [id number] 05/15 [facility] Outpatient Encounter [id number] 05/15 [facility] PSYTX W PT 30 MINUTES [id number] [id number] Diagnos is: ICD-10- CM Z63.0 Problem s in relatio nship with spouse or partner DONNA RAI RRI J 05/29 [facility] Outpatient Encounter [id number] [id number] DONNA RAI RRI J 05/29 [facility] Outpatient Encounter [id number] DONNA RAI RRI J 06/13 [facility] Outpatient Encounter [id number] 06/13 [facility] Outpatient Encounter [id number] 06[facility]15 [facility] En[facility] [id number] 06/15 [facility] Outpatient Encounter [id number] [id number] 07/03 [facility] OFF/OP EST MAY X REQ PHY/QHP [id number] [id number] Diagnos is: ICD-10- CM Z23 Encount er for immuniz MARYANN José E 07/[address] [facility] Outpatient Encounter [id number] 07/24 [facility] OFFICE O/P EST MOD 30 MIN [id number] Diagnos is: ICD-10- CM L70.5 Acne excorie e SUSANNA,FER R 08/11 [facility] Outpatient Encounter [id number] 09/12 [facility] Outpatient Encounter [id number] [id number] OZZIE HUNT RET 09/20 [facility] Outpatient Encounter [id number] 09/20 [facility] Outpatient Encounter [id number] 09/21 [facility] Procedures Combined list of: 1) Procedures from Department of Veterans Affairs facilities going back up to thelast 18 months, not all VA non-surgical procedures are included; 2) All procedures from the Department of Defense facilities. Procedure Procedure Type Code Date Perfomer Comments Sourc e APPLICATION OF A MODALITY TO 1 OR MORE AREAS; ELECTRICAL STIMULATION (MANUAL), EACH 15 MINUTES 4 DoD SELF-CARE/HOME MANAGMENT TRAIN (EG,ACT OF DAILY LIVING (ADL) &COMPENSAT TRAIN,MEAL PREPARATION,SAFETY PROCS,AND INSTRUCT IN USE OF ASST TECHNOLOGY DEV/ADPT EQUIP) DIR ONE-ON-ONE CONT,EA 15 MINUTES 4 DoD SELF-CARE/HOME MANAGMENT TRAIN (EG,ACT OF DAILY LIVING (ADL) &COMPENSAT TRAIN,MEAL PREPARATION,SAFETY PROCS,AND INSTRUCT IN USE OF ASST TECHNOLOGY DEV/ADPT EQUIP) DIR ONE-ON-ONE CONT,EA 15 MINUTES 4 DoD SELF-CARE/HOME MANAGMENT TRAIN (EG,ACT OF DAILY LIVING (ADL) &COMPENSAT TRAIN,MEAL PREPARATION,SAFETY PROCS,AND INSTRUCT IN USE OF ASST TECHNOLOGY DEV/ADPT EQUIP) DIR ONE-ON-ONE CONT,EA 15 MINUTES 4 DoD SELF-CARE/HOME MANAGMENT TRAIN (EG,ACT OF DAILY LIVING (ADL) &COMPENSAT TRAIN,MEAL PREPARATION,SAFETY PROCS,AND INSTRUCT IN USE OF ASST TECHNOLOGY DEV/ADPT EQUIP) DIR ONE-ON-ONE CONT,EA 15 MINUTES 4 DoD EDUCATIONAL SUPPLIES, SUCH BOOKS, TAPES, AND PAMPHLETS, FOR THE PATIENT'S EDUCATION AT COST TO PHYSICIAN OR OTHER QUALIFIED HEALTH INFORMATION SYSTEMS SPECIALIST 4 DoD BRONCHODILATION RESPONSIV[place], [place] [address], PRE- AND POST-BRONCHODILATOR ADMINISTRATION 4 DoD SELF-CARE/HOME MANAGMENT TRAIN (EG,ACT OF DAILY LIVING (ADL) &COMPENSAT TRAIN,MEAL PREPARATION,SAFETY PROCS,AND INSTRUCT IN USE OF ASST TECHNOLOGY DEV/ADPT EQUIP) DIR ONE-ON-ONE CONT,EA 15 MINUTES 4 DoD APPLICATION OF A MODALITY TO 1 OR MORE AREAS; HOT OR COLD PACKS 4 DoD APPLICATION OF A MODALITY TO 1 OR MORE AREAS; HOT OR COLD PACKS 4 DoD APPLICATION OF A MODALITY TO 1 OR MORE AREAS; HOT OR COLD PACKS 4 DoD PRESCRIPTION OF OPTICAL AND PHYSICAL CHARACTERISTICS OF CONTACT LENS, WITH MEDICAL SUPERVISION OF ADAPTATION & DIRECTION OF FIT BY INDEPENDENT TECH;CORNEAL LENS, BOTH EYES, EXCEPT FOR APHAKIA 4 DoD STRAPPING; ANKLE AND/OR FOOT 4 DoD THERAPEUTIC PROCEDURE, 1 OR MORE AREAS, EACH 15 MINUTES; THERAPEUTIC EXERCISES TO DEVELOP STRENGTH AND ENDURANCE, RANGE OF MOTION AND FLEXIBILITY 4 DoD APPLICATION OF A MODALITY TO 1 OR MORE AREAS; HOT OR COLD PACKS 4 DoD NONINVASIVE EAR OR PULSE OXIMETRY FOR OXYGEN SATURATION; SINGLE DETERMINATION 4 DoD NUTRITIONAL COUNSELING, DIETITIAN VISIT 3 DoD EDUCATIONAL SUPPLIES, SUCH BOOKS, TAPES, AND PAMPHLETS, FOR THE PATIENT'S EDUCATION AT COST TO PHYSICIAN OR OTHER QUALIFIED HEALTH INFORMATION SYSTEMS SPECIALIST 3 DoD NUTRITIONAL COUNSELING, DIETITIAN VISIT 3 DoD PSYCHIATRIC DIAGNOSTIC INTERVIEW EXAMINATION 3 DoD ORTHOTIC(S) FITTING AND TRAINING, UPPER EXTREMITY(IES), LOWER EXTREMITY(IES), AND/OR TRUNK, EACH 15 MINUTES 3 DoD ORTHOTIC(S) FITTING AND TRAINING, UPPER EXTREMITY(IES), LOWER EXTREMITY(IES), AND/OR TRUNK, EACH 15 MINUTES 3 DoD SUPP &MATERIAL (EXCEPT SPECTACLE),PROVID,THE PHYS/OTH QUALIFIED HEALTH INFORMATION SYSTEMS SPECIALIST OVER &ABOVE THOSE USUALLY INCLD W THE OFFICE VISIT/OTH SER RENDERED (LIST DRUG,TRAYS,SUPP,OR MATERIAL PROVID) 3 DoD IPRATROPIUM BROMIDE, INHALATION SOLUTION, FDA-APPROVED FINAL PRODUCT, NON-COMPOUNDED, ADMINISTERED THROUGH DME, UNIT DOSE FORM, PER MILLIGRAM 3 DoD PREDNISONE, ORAL, PER 5MG 3 DoD ORTHOTIC(S) FITTING AND TRAINING, UPPER EXTREMITY(IES), LOWER EXTREMITY(IES), AND/OR TRUNK, EACH 15 MINUTES 3 DoD ORTHOTIC(S) FITTING AND TRAINING, UPPER EXTREMITY(IES), LOWER EXTREMITY(IES), AND/OR TRUNK, EACH 15 MINUTES 3 DoD PHYSICAL THERAPY EVALUATION 3 DoD SUPPLY OF SPECTACLES, EXCEPT PROSTHESIS FOR APHAKIA AND LOW VISION AIDS 4 DoD APPLICATION OF A MODALITY TO 1 OR MORE AREAS; HOT OR COLD PACKS 4 DoD THERAPEUTIC PROCEDURE, 1 OR MORE AREAS, EACH 15 MINUTES; THERAPEUTIC EXERCISES TO DEVELOP STRENGTH AND ENDURANCE, RANGE OF MOTION AND FLEXIBILITY 4 [facility] THERAPEUTIC PROCEDURE, 1 OR MORE AREAS, EACH 15 MINUTES; THERAPEUTIC EXERCISES TO DEVELOP STRENGTH AND ENDURANCE, RANGE OF MOTION AND FLEXIBILITY 4 [facility] THERAPEUTIC PROCEDURE, 1 OR MORE AREAS, EACH 15 MINUTES; THERAPEUTIC EXERCISES TO DEVELOP STRENGTH AND ENDURANCE, RANGE OF MOTION AND FLEXIBILITY 4 [facility] APPLICATION OF A MODALITY TO 1 OR MORE AREAS; IONTOPHORESIS, EACH 15 MINUTES 4 [facility] THERAPEUTIC PROCEDURE, 1 OR MORE AREAS, EACH 15 MINUTES; THERAPEUTIC EXERCISES TO DEVELOP STRENGTH AND ENDURANCE, RANGE OF MOTION AND FLEXIBILITY 4 [facility] PULMONARY QUANTITATIVE DIFFERENTIAL FUNCTION (VENTILATION/PERFUSIO N) STUDY 3 [facility] THERAPEUTIC PROCEDURE, 1 OR MORE AREAS, EACH 15 MINUTES; THERAPEUTIC EXERCISES TO DEVELOP STRENGTH AND ENDURANCE, RANGE OF MOTION AND FLEXIBILITY 3 [facility] SUPPLY OF SPECTACLES, EXCEPT PROSTHESIS FOR APHAKIA AND LOW VISION AIDS 3 [facility] PHYSICAL THERAPY RE-EVALUATION 3 [facility] MEDICAL NUTRITION THERAPY; GROUP (2 OR MORE INDIVIDUAL(S)), EACH 30 MINUTES 3 [facility] MANUAL THERAPY TECHNIQUES (EG, MOBILIZATION/ MANIPULATION, MANUAL LYMPHATIC DRAINAGE, MANUAL TRACTION), 1 OR MORE REGIONS, EACH 15 MINUTES 3 [facility] MANUAL THERAPY TECHNIQUES (EG, MOBILIZATION/ MANIPULATION, MANUAL LYMPHATIC DRAINAGE, MANUAL TRACTION), 1 OR MORE REGIONS, EACH 15 MINUTES 3 [facility] APPLICATION OF A MODALITY TO 1 OR MORE AREAS; ULTRASOUND, EACH 15 MINUTES 3 [facility] PATIENT EDUCATION, NOT OTHERWISE CLASSIFIED, NON-PHYSICIAN PROVIDER, GROUP, PER SESSION 3 [facility] THERAPEUTIC PROCEDURE, 1 OR MORE AREAS, EACH 15 MINUTES; THERAPEUTIC EXERCISES TO DEVELOP STRENGTH AND ENDURANCE, RANGE OF MOTION AND FLEXIBILITY 3 DoD NONINVASIVE EAR OR PULSE OXIMETRY FOR OXYGEN SATURATION; SINGLE DETERMINATION 3 [facility] Physical Therapy: ___ Se ion Segments, 15 Minutes Each Physical Therapy: ___ Session Segments, 15 Minutes Each [id number] 4 [facility] Mod[facility] Cryotherapy Cold Packs Modalities Cryotherapy Cold Packs 32891 4 KEE [facility] Modalities Iontophoresis Modalities Iontophoresis 56869 4 KEE, [facility] Modalities Iontophoresis Modalities Iontophoresis 07507 4 TIERA GROVE [facility] Physical Therapy: ___ Se ion Segments, 15 Minutes Each Physical Therapy: ___ Session Segments, 15 Minutes Each [id number] 4 TIERA GROVE [facility] Physical Therapy: ___ Se ion Segments, 15 Minutes Each Physical Therapy: ___ Session Segments, 15 Minutes Each [id number] 4 LEONID SANDS [facility] Modalities Iontophoresis Modalities Iontophoresis 55741 4 LEONID SANDS [facility] Modalities Iontophoresis Modalities Iontophoresis 53775 4 HIRAM SWEET [facility] Physical Therapy Service Evaluation Physical Therapy Service Evaluation [id number] 4 ALEX RIOS A isted Exercises For ROM Assisted Exercises For ROM [id number] ALEX RIOS Social History Combined list of available smoking, tobacco, and other social history from [facility] and [facility] facilities. Social History Type Response Date Comment [facility] e Tobacco smoking status [facility] VA-TOBACCO NEVER USED 05/28/2023 [facility] History of tobacco use VA-TOBACCO NEVER USED 05/29/2022 [facility] History of tobacco use VA-TOBACCO NEVER USED 03/21/2021 [facility] History of tobacco use VA-TOBACCO NEVER USED 10/24/2019 [facility] History of tobacco use VA-TOBACCO NEVER USED 08/08/2018 [facility] History of tobacco use LIFETIME NON-USER OF TOBACCO 03/02/[address] [facility] [facility] History of tobacco use LIFETIME NON-USER OF TOBACCO 02/12/2017 [facility] History of tobacco use LIFETIME NON-USER OF TOBACCO 02/10/2017 [facility] History of tobacco use LIFETIME NON-USER OF TOBACCO 07/09/2016 [facility] History of tobacco use LIFETIME NON-USER OF TOBACCO 09/27/2015 [facility] History of tobacco use LIFETIME NON-USER OF TOBACCO 11/28/2014 [facility] History of tobacco use LIFETIME NON-USER OF TOBACCO 02/06/2014 [facility] History of tobacco use LIFETIME NON-USER OF TOBACCO 04/10/2013 [facility] History of tobacco use LIFETIME NON-USER OF TOBACCO 05/06/2007 [facility] This section is an empty social history section. [facility] Plan of Care List of future care activities from Department [facility] facilities. Additional future care activities may be listed in the Assessment and Plan section. Date/Time Care Activity Care Activity Detail Facili ty 12/12/2024 AMBULATORY - MEDICINE AMBULATORY - MEDICI [facility] 02/07/2025 AMBULATORY - MEDICINE AMBULATORY - MEDICI [facility] Advance Directives List of completed, amended, or rescinded Advance Directives on record at [facility] facilities. An actual copy of the Directive is not included. Date Advance Directive Provider Source 09/17/2014 ADVANCE DIRECTIVE DISCUSSION TAMMIE GARDNER [facility]
--- OUTSIDE RECORDS SUMMARY | 2024-09-27 08:22 | XMS_ITS | Patient Health Record ---
Author Organization [facility] Address [address] [address] Reason For Referral No Information Plan Of Treatment No Information
--- OUTSIDE RECORDS SUMMARY | 2024-09-27 08:22 | XMS_ITS | Encounter Summary ---
Author Name [facility] [place] [facility] [place] Address [address] [place] [address] Care Team Providers Care Assistant Professor Nurse Education Name Role Phone SWAPNA JUNG Primary Care [...] section includes the information on record at [place] for the Encounter. Date/Time Encounter Type Encounter Description Reason Pro vider Source IHE Encounter Template Text not used by [facility] Advance Directives: All historical and current Section Date Range: From patient's date of to the date document was created. This section includes ALL of a patient's completed or amended VA Advance and Rescinded Directives. The entries below indicate that a directive exists for the patient, but an actual copy is not included with this document. The data comes from all [place] facilities. Date Advance Directives Provider Source Sep 17, 2014 ADVANCE DIRECTIVE DISCUSSION TAMMIE [facility]ARDNER [facility]
--- OUTSIDE RECORDS SUMMARY | 2024-09-27 08:22 | XMS_ITS | Clinical Summary ---
Author Organization [facility] Address [address] [place] [address] Care Team Providers Care Tobacco Sampler Name Role Phone Lucrecia Hamilton MD Primary Care Provider [phone] Source Comments [facility],non-owned Affiliates and Associated Physician Practices is amultiple site organization consisting of ambulatory clinics and hospital sitesin [place], [place], [place] and [place]. This disclosure is being madepursuant to the Care Everywhere program and may not contain all information available regarding this patient. Last updated 18.[facility] Allergies No known active allergies Medications * [...] Comments Blood Pressure 116/63 06/30/2011 10:58 AM FARM MANAGEMENT ADVISER Pulse 72 06/30/2011 10:58 AM FARM MANAGEMENT ADVISER Temperature 36.9 C (98.4 F) 06/30/2011 1:55 PM FARM MANAGEMENT ADVISER Respiratory Rate 16 06/30/2011 10:58 AM FARM MANAGEMENT ADVISER Oxygen Saturation 100% 06/30/2011 10:58 AM FARM MANAGEMENT ADVISER Inhaled Oxygen Concentration - - Weight - - Height - - Body Mass Index - - Plan of Treatment Health Maintenance Due Date Last Done Comments COLOGUARD (AGES 45-75) - COL ON CA SCREENING [address] COLONOGRAPHY - COLON CA SCREENING 1965 FIT - COLON CA SCREENING 1965 FLEX SIG - COLON CA SCREENING 1964 LIPID TESTING 1965 MAMMOGRAM 1965 PAP SMEAR 1964 HIV SCREENING 1979 HEPATITIS C SCREENING 05/08/1982 DTAP/TDAP/TD VACCINES (1 - Tdap) 1983 PNEUMOCOCCAL VACCINE 50+ (1 of 1 - PCV) 2014 ZOSTER VACCINE (1 of 2) 2014 COVID-19 VACCINE (4 - 2023-2 5 season) 2024 06/03/2021, 10/29/2020, 10/08/2020 INFLUENZA VACCINE (#1) 2024 DEPRESSION SCREENING 07/26/2024 COLONOSCOPY - COLON CA SCREENING 03/11/2033 03/11/2023 Colorectal Cancer Screening 03/11/2033 Respiratory Syncytial Virus (RSV) Vaccine Pt: or over 60 yrs (1 - 1-dose 75+ series) 2039 HEPATITIS B VACCINE Aged Out No longe r eligible based on patient's age to complete this topic HIB VACCINE Aged Out No longer eligi ble based on patient's age to complete this topic HPV VACCINE Aged Out No longer eligi ble based on patient's age to complete this topic MENINGOCOCCAL (Group B) VACCINE Aged Out No longer eligible b ased on patient's age to complete this topic MENINGOCOCCAL VACCINE Aged Out No mars manish eligible based on patient's age to complete this topic PNEUMOCOCCAL VACCINE Aged Out No long er eligible based on patient's age to complete this topic Care Teams Tobacco Sampler Relationship Specialty Start Date End Date Lucrecia Hamilton MD [address] [facility] [place] [address] PCP - General Family Medicine 04/05/24
--- OUTSIDE RECORDS SUMMARY | 2024-09-27 08:22 | XMS_ITS | Encounter Summary ---
Author Name [facility] [facility] [place] Address [address] [place] [address] Care Team Providers Care Fuels Engineer Name Role Phone SWAPNA JUNG Primary Care Provider Unavail le Insurance Providers: [...] Encounter Type Encounter Description Reason Provider Source Jul 03, 2024 10:15 AM OFF/OP EST NOVEMBER X REQ PHY/QHP PRIMARY CARE/MEDICINE ICD-10-CM Z23 Encounter for immunization NELIDA WITT Encounter Template Text not used by [place] Assessments - Encounter Diagnoses This section includes the primary and secondary diagnoses documented for the Encounter. Date/Time Primary/Secondary Diagnosis Diagnosis Name Provider Source Jul 03, 2024 04:32 PM PRIMARY Encounter for immunization [facility]ACHARIAH W[facility] Plan of Treatment: Future Appointments (+ 6 months) and Future Tests (+/- 45 days) The Plan of Treatment section includes future care activities for the [facility] This section includes future appointments and future orders which are active, pending or scheduled. Future Appointments This section includes appointments that were scheduled to occur 6 months from the date of the Encounter, up to a maximum of 20 appointments. The data comes from all [facility] facilities. Appointment Date/Time Appointment Type Appointme nt Facility Name Jul 24, 2024 01:00 PM AMBULATORY - SURGERY [facility] Aug 11, 2024 01:45 PM AMBULATORY - MEDICINE [facility] December 12, 2024 02:00 PM AMBULATORY - MEDICINE [facility] Immunizations: All administered on the encounter date This section contains immunizations associated to the Encounter. Immunization Series Date Issued Reaction Comments COVID-19 (Puuilo), MRNA, LNP -S, PF, LOIS-SUCROSE, 30 MCG/0.3 ML (AGES 12+ YEARS) Jul 03, 2024 INFLUENZA, SPLIT VIRUS, TRIVALENT, PF Jul 03 Social History: Smoking Status (Most current) and [...] PM VA-TOBACCO NEVER USED [facility] Tobacco Use History This section includes a [...] LIFETIME NON-USER OF TOBACCO [facility] Advance Directives: All historical and current Section [...] 17, 2014 ADVANCE DIRECTIVE DISCUSSION TAMMIE GARDNER [facility] Encounter Notes: All associated encounter notes This section contains the clinical notes associated to the Encounter. Date/Time Encounter Note(s) Provider Source Jul 03, 2024 11:31 AM NURSING IMMUNIZATI ON NOTE: LOCAL TITLE: CLINIC ADMINISTERED IMMUNIZATION/MEDICATION(S) STANDARD TITLE: NURSING IMMUNIZATION NOTE DATE OF NOTE: JUL 03, 2024@11:31:43 ENTRY DATE: JUL 03, 2024@11:31:43 AUTHOR: ZACHARIAH WITT EXP COSIGNER: URGENCY: STATUS: COMPLETED Administered: INFLUENZA, SPLIT VIRUS, TRIVALENT, PF Date Administered: Jul 03, 2024 10:15 Credit Analyst: [employer] Lot: [id number] Exp Date: Jan 22, 2025 NDC: [id number] Admin Route/Site: INTRAMUSCULAR/LEFT DELTOID Dosage: 0.5mL Vaccine Information Statement(s): INFLUENZA(FLU) VACC(INACTIVATED OR RECOMBINANT)VIS Feb 28, 2021 ([place]) Order By: Policy Administered By: Zachariah Witt Administered: COVID-19 (PFIZER), MRNA, LNP-S, PF, LOIS-SUCROSE, 30 MCG/0.3 ML (AGES 12+ YEARS) Date Administered: Jul 03, 2024 10:15 Credit Analyst: [employer] Lot: [id number] Exp Date: Oct 24, 2024 NDC: [id number] Admin Route/Site: INTRAMUSCULAR/RIGHT DELTOID Dosage: 0.3mL Vaccine Information Statement(s): COVID-19 MRNA VACCINE (12+ YRS) VIS May 11, 2024 ([place]) Order By: Policy Administered By: Zachariah Witt /jacek/ LAURA LALEN, RN REGISTERED NURSE Signed: 07/03/2024 16:32 ZACHARIAH WITT [facility]
--- OUTSIDE RECORDS SUMMARY | 2024-09-27 08:22 | XMS_ITS | Encounter Summary ---
Author Name [facility] [facility] [place] [facility] [place] Address [address] [place] [address] Care Team Providers Care Manager Registration Name Role Phone SWAPNA JUNG Primary Care [...] Type Encounter Description Reason Provider Source May 29, 2024 11:00 AM PSYTX W PT 30 MINUTES PCMHI INDIV ICD-10-CM Z63.0 Problems in relationship with spouse or partner DEJAN RAI Briseyad Encounter Template Text not used by [facility] Assessments - Encounter Diagnoses This section includes the primary and secondary diagnoses documented for the Encounter. Date/Time Primary/Secondary Diagnosis Diagnosis Name Provider Source May 29, 2024 11:17 AM PRIMARY Problems in relationship with spouse or partner [facility] May 29, 2024 11:17 AM SECONDARY Problems of adjustment to life-cycle transitions DEJAN RAI [facility] Plan of Treatment: Future Appointments (+ 6 months) and Future Tests (+/- 45 days) The Plan of Treatment section includes future care activities for the patient from all [place] [facility]. This section includes future appointments and future orders which are active, pending or scheduled. Future Appointments This section includes appointments that were scheduled to occur 6 months from the date of the Encounter, up to a maximum of 20 appointments. The data comes from all [place] treatment facilities. Appointment Date/Time Appointment Type Appointme nt Facility Name Jun 13, 2024 01:00 PM AMBULATORY - MEDICINE [facility] Jul 03, 2024 10:15 AM [facility] Jul 24, 2024 01:00 PM AMBUL[facility]ORY - SURGERY [facility] Aug 11, 2024 01:45 PM AMBULATORY - MEDICINE [facility] Social History: Smoking Status (Most current) and [...] 02:00 PM VA-TOBACCO NEVER USED [facility] Tobacco Use History This section includes a history of the smoking, or tobacco-related health factors, that were collected on or before the date of the Encounter. The data comes from the [place] facility where the Encounter took place. Date/Time Smoking Status/Tobacco Use Comment F acility May 29, 2022 03:00 PM VA-TOBACCO NEVER [facility]ED [facility] Mar 21, 2021 11:30 AM VA-TOBACCO NEVER USED [facility] Oct 24, 2019 09:17 AM VA-TOBACCO NEVER [facility]ED [facility] Aug 08, 2018 02:11 PM VA-TOBACCO NEVER USED [facility] Mar 02, 2017 02:54 PM LIFETIME NON-USER OF TOBAC CO . [facility] Feb 12, 2017 03:17 PM LIFETIME NON-USER OF TOBACCO [facility] Feb 10, 2017 09:17 AM LIFETIME NON-USER OF TOBACCO [facility] Jul 09, 2016 03:17 PM LIFETIME NON-USER OF TOBACCO [facility] Sep 27, 2015 02:47 PM LIFETIME NON-USER OF TOBACCO [facility] November 28, 2014 02:10 PM LIFETIME NON-USER OF TOBACCO [facility] Advance Directives: All historical and current [...] 17, 2014 ADVANCE DIRECTIVE DISCUSSION TAMMIE GARDNER [facility] Radiology Reports: +/- 30 days of [...] MAMM DIG SCREENING WITH CAD-P: AMBER WIN [id number] -1965 F Exm Date: MAY 09, 2024@10:26 Req Phys: SWAPNA JUNG Loc: [facility] (Req'g Img Loc: [facility] Service: [address] [address] (Case [id number] COMPLETE) SCREENING DIG BREAST DEVAN, BILAT,([facility] Detailed) CPT:49979 Proc Modifiers : LEFT, RIGHT Reason for Study: Annual screening (Case [id number] COMPLETE) MAMMOGRAPHY SCREENING, BILAT INCL([facility] Detailed) CPT:14734 Proc Modifiers : LEFT, RIGHT Clinical History: May 07, 2023: BI-RADS CATEGORY 1 Report Status: Verified Date Reported: MAY 10, 2024 Date Verified: MAY 10, 2024 Visiting Teacher E-Sig:/ES/ELIAN GOOD Report: BILATERAL SCREENING MAMMOGRAM CASE NUMBERS: [id number], [id number] DATE: 05/09/2024. COMPARISON: Multiple prior mammograms and breast sonograms, dating retrospectively between 05/16/2012 and, more recently, 05/07/2023. HISTORY: Screening mammogram. 58-year-old -[place] female without a family history of breast [...] mammography according to the [employer] / [place] [employer] guidelines in consultation with primary healthcare provider. Primary Interpreting Staff: ELIAN GOOD Diagnostic Radiologist (Visiting Teacher) [facility] Encounter Notes: All associated encounter notes This section contains the clinical notes associated to the Encounter. Date/Time Encounter Note(s) Provider Source May 29, 2024 11:01 AM PSYCHOLOGY OUTPATI ENT NOTE: LOCAL TITLE: PRIMARY CARE PSYCHOLOGY NOTE ST STANDARD TITLE: PSYCHOLOGY OUTPATIENT NOTE DATE OF NOTE: MAY 29, 2024@11:01 ENTRY DATE: MAY 29, 2024@11:01:07 AUTHOR: DEJAN RAI COSIGNER: URGENCY: STATUS: COMPLETED NAME: AMBER WIN DATE OF : Apr TIME SPENT WITH PATIENT: 30 minutes DIAGNOSIS BEING TREATED: Problems in relationship with spouse or partner; problems of adjustment to life-cycle transitions CPT Code: 40284 NATURE OF ENCOUNTER: follow up visit SESSION FORMAT: [x ] [id number] [ ] Video Telehealth [ ]Phone SESSION NUMBER: 2 INTERVENTION/TREATMENT PROVIDED [ ] Rapport Building [ ] Shared decision-making regarding goals of care [ ] Supportive Psychotherapy [ ] Solution-Focused Psychotherapy [ ] Insight Oriented Psychotherapy [ x] Cognitive Behavioral Therapy Skills [ ] Acceptance and Commitment Therapy Skills [ ] Interpersonal Therapy Skills [ ] Motivational Interviewing [ ] Culture-based Interventions [ ] Health Psychology Interventions [ ] Evidence Based Psychotherapy: [ ] Psychosocial Interventions [ ] Other: Description of Interventions Provided by Therapist: -Discussed role of quality time increasing leading to feeling more connected with her . They have been taking car rides and conversing; she noted improved communication and empathy. Discussed next steps; they are planning a trip to [place] to visit their daughter. [place] plans to continue taking drives and also planning dates for herself and her . -Processed 's response to recently turning 59 combined with detention. One of her daughters treated her to dinner, manicure. I don't know what to do with myself. Less busy since retiring, focused on cleaning and organizing her house one room at a time. Lately she has been including her for more quality time. She has also been continuing her regular library visits. She also been working out at home, which has improved her mood. RELEVANT HISTORICAL DEVELOPMENTS SINCE LAST CONTACT: NOTE: Describe relevant historical developments below -started taking rides with her and talking ASSESSMENT MEASURES USED: [ x] Measure in Mental Health Manager Analysis. See accompanying Mental Health Diagnostic Study for details. [X]Functional/Symptom Assessment: Symptom(s)/Function(s) tracked by changes in frequency, intensity or duration since last visit: SX: Sleep: no change Interest: no change Guilt: none reported Energy: no change Concentration:no change reported or observed Appetite: stabilized, with lses cravings. Fixing food at home more. Psychomotor: no change, wnl Collaboratively discussed outcomes related to assessment and treatment progress and measures will continue to be monitored. MEASURABLE TREATMENT GOALS FOR THIS EPISODE OF CARE: Goals were developed with using shared decision making 1. GOAL/OBJECTIVES: increase self-efficacy in managing relationship stress amid adjustment to detention PROGRESS TOWARDS GOAL: Positive. Nadja has already made positive changes in her marriage, leading to increased quality time and feeling more connected with her . Amenable to continued planning today and homework (see below). RESPONSE TO INTERVENTIONS: Veterans participation/engagement: [ x]The participated actively in the current interventions. [ ]Other: The [place] continues to consent to the current plan of care: Yes Comments: RISK ASSESSMENT: [ x] NO CHANGE IN RISK FACTORS Related to Suicide or Homicide. did not report any current suicidal/homicidal ideation, plan, or intent. [place] did not appear to be at imminent risk for suicide or homicide at this time and is considered sustainable at the current level of care. ASSIGNED WORK: values questionnaire and COPPES COLLABORATIVE RECOMMENDATIONS/PLAN: Collaboratively discussed outcomes related to assessment and treatment progress. Based on this discussion: [x ] No changes to plan of care. [place] expressed agreement with therapy tasks and [id number] plan. /jacek/ DEJAN RAI, PH.D. CLINICAL PSYCHOLOGIST Signed: 05/29/2024 11:44 DEJAN RAI [facility]
--- OUTSIDE RECORDS SUMMARY | 2024-09-27 08:22 | XMS_ITS | Encounter Summary ---
Author Name [facility] [place] [facility] [place] [facility] [facility] [place] Address [address] [place] [address] Care Team Providers Care Custody Officer Name Role Phone SWAPNA JUNG Primary Care [...] Type Encounter Description Reason Provider Source Apr 11, 2024 02:15 PM OFFICE O/P EST MOD 30 MIN DERMATOLOGY ICD-10-CM L28.2 Other prurigo SEKOU LUCERO Encounter Template Text not used by [place] Assessments - Encounter Diagnoses This section includes the primary and secondary diagnoses documented for the Encounter. Date/Time Primary/Secondary Diagnosis Diagnosis Name Provider Source May 02, 2024 12:41 PM PRIMARY Other prurigo [facility] May 02, 2024 12:41 PM SECONDARY Acne excoriee [facility] Plan of Treatment: Future Appointments (+ 6 months) and Future Tests (+/- 45 days) The Plan of Treatment section includes future care activities for the patient from all [place] [facility]. This section includes future appointments and future orders which are active, pending or scheduled. Future Appointments This section includes appointments that were scheduled to occur 6 months from the date of the Encounter, up to a maximum of 20 appointments. The data comes from all [place] treatment facilities. Appointment Date/Time Appointment Type Appointme nt Facility Name Apr 26, 2024 10:00 AM AMBULATORY - SURGERY [facility] May 02, 2024 11:00 AM AMBULATORY - MEDICINE [facility] May 09, 2024 10:40 AM AMBULATORY - NONE [facility] May 29, 2024 11:00 AM AMBULATORY - MEDICINE [facility] Jun 13, 2024 01:00 PM AMBULATORY - MEDICINE [facility] Jul 03, 2024 10:15 AM AMBULATORY - MEDICINE [facility] Jul 24, 2024 01:00 PM AMBULATORY - SURGERY [facility] Aug 11, 2024 01:45 PM AMBULATORY - MEDICINE [facility] Lab Results: +/- 30 days of the encounter This section includes the Chemistry and Hematology Lab Results on record with [place] for the patient. Radiology Reports and Pathology Reports are provided separately, in subsequent sections. Lab Results This section contains the Chemistry/Hematology Results that were resulted 30 days before or 30 daysafter the date of the Encounter. Date/Time Source Result Type Result - Unit Interpretation Reference Range Comment Apr 11, 2024 12:05 PM [facility] MICRAL/CREAT PROFILE (STL) Specimen Type: URINE No comment entered. Ordering Provider: ANITRA JUNG Report Released Date/Time: Apr 10, 2024 08:49 AM Reporting Lab: [facility] [address] [facility] [phone] Performing Lab: [place] [address] [facility] [phone] URINE ALBUMIN (PB-STL) 12.9 mg/L uACR (STL) 8 mg/g 0-29 CREATININE URINE/OTHERS 154.4 mg/dL H 47-110 Apr 11, 2024 12:05 PM [facility] URINALYSIS (STL-PB) Specimen Type: URINE No comment entered. Ordering Provider: ANITRA JUNG Report Released Date/Time: Apr 10, 2024 08:49 AM Reporting Lab: [facility] [address] [facility] [phone] Performing Lab: [facility] [address] [place] [phone] URINE COLOR Light-Yellow Yellow U.BILIRUBIN Negative mg/dL Negative U.PH 6.0 5.0-8.0 APPEARANCE Clear Clear U.NITRITE Negative mg/dL Negative URN.GLUCOSE Normal mg/dL Negative URN.PROTEIN 10 mg/dL H Negative-20 URN.UROBILINOGEN Normal mg/dL Normal URN.BLOOD Negative mg/dL Negative-Tra ce URN.KETONES Negative mg/dL Negative-Tra ce URN.LEUK.EST. Negative mg/dL Negative-Tra ce URN.SPECIFIC GRAVITY 1.026 1.005-1.029 Apr 11, 2024 11:55 AM [facility] HGA1C Specimen Type: BLOOD No comment entered. Ordering Provider: ANITRA JUNG Report Released Date/Time: Apr 10, 2024 08:48 AM Reporting Lab: [facility] [address] [place] [address] Performing Lab: [facility] [address] [place] [address] HGA1C 9.2 H 4.0-6.0 Apr 11, 2024 11:55 AM [facility] VITAMIN D, 25-HYDROXY Specimen Type: SERUM No comment entered. Ordering Provider: ANITRA JUNG Report Released Date/Time: Apr 10, 2024 08:49 AM Reporting Lab: [facility] [address] [facility] [address] Performing Lab: [facility] [address] [place] [address] VITAMIN D, 25-HYDROXY 47.9 ng/mL 30-96 Apr 11, 2024 11:55 AM [facility] LIPID PANEL (STL) Specimen Type: PLASMA Comment: No hemolysis noted. Ordering Provider: ANITRA JUNG Report Released Date/Time: Apr 10, 2024 08:49 AM Reporting Lab: [facility] [address] [place] [phone] Performing Lab: [facility] [address] [place] [phone] CHOLESTEROL 222 mg/dL H 0-200 TRIGLYCERIDE 83 mg/dL 0-150 CALCULATED LDL 134 mg/dL HDL(New) 71 mg/dL >40 Apr 11, 2024 11:55 AM [facility] COMPREHENSIVE METABOLIC PANEL Specimen Type: PLASMA Comment: No hemolysis noted. Ordering Provider: ANITRA JUNG Report Released Date/Time: Apr 10, 2024 08:48 AM Reporting Lab: [facility] [address] [place] [phone] Performing Lab: [facility] [address] [place] [phone] CREATININE 0.93 mg/dL 0.6-1.1 UREA NITROGEN 21.3 [...] 70.8 >60 Apr 11, 2024 11:55 AM [facility] TSH W/ REFLEX FT4 (STL) Specimen Type: PLASMA No comment entered. Ordering Provider: ANITRA JUNG Report Released Date/Time: Apr 10, 2024 08:49 AM Reporting Lab: [facility] [address] [facility] [address] Performing Lab: [facility] [address] [place] [phone] TSH 0.823 u[IU]/mL 0.47-5 Apr 11, 2024 11:55 AM [facility] CBC Specimen Type: BLOOD No comment entered. Ordering Provider: ANITRA JUNG Report Released Date/Time: Apr 10, 2024 08:49 AM Reporting Lab: [facility] [address] [facility] [address] Performing Lab: [facility] [address] [place] [phone] WBC 8.1 10*3/uL 3.6-11.2 RBC 4.96 10*6/uL [...] 10*3/uL 0.00-0.20 Apr 04, 2024 11:01 AM [facility] GLUCOSE,BLOOD-poct (STL) Specimen Type: BLOOD Comment: Test Performed by: [id number] Meter #: [id number] Ordering Provider: ANITRA JUNG Report Released Date/Time: Apr 04, 2024 02:12 PM Reporting Lab: [facility] [address] [facility] [phone] Performing Lab: [facility] [address] [facility] [phone] GLUCOSE,BLOOD-po ct (STL) 331 mg/dL H 72-99 Advance Directives: All historical and current Section Date Range: From patient's date of to the date document was created. This section includes ALL of a patient's completed or amended [place] Advance and Rescinded Directives. The entries below indicate that a directive exists for the patient, but an actual copy is not included with this document. The data comes from all [place] facilities. Date Advance Directives Provider Source Sep 17, 2014 ADVANCE DIRECTIVE DISCUSSION TAMMIE GARDNER [facility] Radiology Reports: +/- 30 days of [...] the Encounter. The data comes from all [place] treatment facilities. Date/Time Radiology Report Provider Source May 09, 2024 10:26 AM MAMM DIG SCREENING WITH CAD-P: AMBER WIN [id number] -[id number] F Exm Date: MAY 09, 2024@10:26 Req Phys: SWAPNA JUNG Loc: [facility] (Req'g Img Loc: -MAMMOGRAMS Service: [address] [address] (Case [id number] COMPLETE) SCREENING DIG BREAST DEVAN, BILAT,([facility] Detailed) CPT:15721 Proc Modifiers : LEFT, RIGHT Reason for Study: Annual screening (Case [id number] COMPLETE) MAMMOGRAPHY SCREENING, BILAT INCL([facility] Detailed) CPT:34413 Proc Modifiers : LEFT, RIGHT Clinical History: May 07, 2023: BI-RADS CATEGORY 1 Report Status: Verified Date Reported: MAY 10, 2024 Date Verified: MAY 10, 2024 Warehouse Delivery Driver E-Sig:/ES/ELIAN GOOD Report: BILATERAL SCREENING MAMMOGRAM CASE NUMBERS: [id number], [id number] DATE: 05/09/2024. COMPARISON: Multiple prior mammograms and breast sonograms, dating retrospectively between 05/16/2012 and, more recently, 05/07/2023. HISTORY: Screening mammogram. 58-year-old -[place] female without a family history of breast [...] mammography according to the [employer] / [employer] guidelines in consultation with primary healthcare provider. Primary Interpreting Staff: ELIAN GOOD, Diagnostic Radiologist (Warehouse Delivery Driver) /[facility] Apr 11, 2024 11:42 AM KNEE OA SERIES LEFT 3 VWS>/=55: AMBER WIN [id number] -[id number] F Exm Date: APR 11, 2024@11:42 Req Phys: SWAPNA JUNG Loc: [facility] PACT PHONE 03 PCP ( [facility] Loc: -MAIN RADIOLOGY SUITE Service: [facility], [address] [address] (Case [id number] COMPLETE) KNEE,LEFT, 3 VIEWS (RAD Detailed) CPT:75471 Proc Modifiers : BILAT AP & BILAT SUNRISE Reason for Study: Left knee pain, (Case 1635 COMPLETE) KNEE,RIGHT,1 OR 2 VIEWS (RAD Detailed) CPT:90348 Proc Modifiers : BILAT AP & BILAT SUNRISE Clinical History: left knee pain, hurting bad on walking Do films need to be ortho templated printed? No Report Status: Verified Date Reported: APR 11, 2024 Date Verified: APR 11, 2024 Warehouse Delivery Driver E-Sig:/ES/MELISSA CAMERON MD Report: Case #[id number] and [...] MELISSA CAMERON MD, Staff Physician - Radiologist (Warehouse Delivery Driver) /DARIO FINNEY [facility] Encounter Notes: All associated encounter notes This section contains the clinical notes associated to the Encounter. 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 Today, patient notes: Consistent itching. Continues to scratch. Ran out of DCN. ALLERGIES EGGS, METFORMIN, EMPAGLIFLOZIN REVIEW OF SYSTEMS No non-healing sores --------- OBJECTIVE --------- Physical Examination - Upper back, upper extremities with hyperpigmented papules with surrounding hyperpigmentation - Forehead, cheeks and chin with multiple hyperpigmented macules and scars admixed with excoriated papules - Chin, periorbital cheeks with hyperpigmented plaques Otherwise: General Appearance: Well Appearing FEMALE, NAD Mood/Affect: pleasant/appropriate Face: WNL Ears: WNL Nose: WNL Forehead: WNL Scalp, Hair: WNL Neck: WNL Chest: WNL Abd: WNL Back: WNL Upper Extremities: WNL Nails/Hair: WNL ASSESSMENT AND PLAN # Prurigo nodularis # Acne excoriee # Post-inflammatory hyperpigmentation # LSC changes on right > left inferior chin -Discussed with patient the nature of this problem and may be related to stress and rubbing - Discussed this is NOT related to infection particularly viral infection - Continue cetaphil daily - Discussed daily use of broad-spectrum SPF 30+ on face - Start tretinoin 0.025% cream dark areas on the face - Ok to continue OTC HC cream ONLY to itchy areas, do not use to open areas - Restart DCN once a day until time of f/u - Start gabapentin 100mg qHS; SER sedation - Start cetirizine 10mg daily RTC 4m /jacek/ MAXWELL COUCH MD DERMATOLOGY RESIDENT Signed: 04/11/2024 14:06 /jacek/ SEKOU LUCERO MD Dermatology Attending Physician Cosigned: 04/11/2024 14:17 04/11/2024 ADDENDUM STATUS: COMPLETED Reviewed documented history and physical examination and agree with assessment and plan. I was immediately available during entire visit and procedures. /jacek/ SEKOU LUCERO MD Dermatology Attending Physician Signed: 04/11/2024 14:17 MAXWELL COUCH [facility]
--- OUTSIDE RECORDS SUMMARY | 2024-09-27 08:22 | XMS_ITS | Encounter Summary ---
Author Name [facility] [facility] [place] Address [address] [place] [address] Care Team Providers Care Electronics Technology Instructor Name Role Phone SWAPNA JUNG Primary Care [...] Encounter Type Encounter Description Reason Provider Source November 29, 2023 11:00 AM OFFICE O/P EST MOD 30 MIN PRIMARY CARE/MEDICINE ICD-10-CM J20.9 Acute bronchitis, unspecified QALBANI,KHALID A IHE Encounter Template Text not used by [place] Assessments - Encounter Diagnoses This section includes the primary and secondary diagnoses documented for the Encounter. Date/Time Primary/Secondary Diagnosis Diagnosis Name Provider Source November 29, 2023 11:55 AM PRIMARY Acute bronchitis, unspecified QALBANI,NADYAALID A [facility] November 29, 2023 11:55 AM SECONDARY Acne, unspecified QALBANI,KHALID A [facility] November 29, 2023 11:55 AM SECONDARY Anxiety disorder, unspecified DANITZA JUNG [facility] November 29, 2023 11:55 AM SECONDARY Carpal tunnel syndrome, bilateral upper limbs DANITZA JUNG [facility] November 29, 2023 11:55 AM SECONDARY Essential (primary) hypertension DANITZA JUNG [facility] November 29, 2023 11:55 AM SECONDARY Lesion of ulnar nerve, right upper limb DANITZA JUNG [facility] November 29, 2023 11:55 AM SECONDARY Other asthma DANITZA JUNG [facility] November 29, 2023 11:55 AM SECONDARY Type 2 diabetes mellitus with unspecified complications DANITZA JUNG [facility] Plan of Treatment: Future Appointments (+ 6 months) and Future Tests (+/- 45 days) The Plan of Treatment section includes future care activities for the patient [facility] [place] [facility] This section includes future appointments and future orders which are active, pending or scheduled. Future Appointments This section includes appointments that were scheduled to occur 6 months from the date of the Encounter, up to a maximum of 20 appointments. The data comes from all [place] treatment facilities. Appointment Date/Time Appointment Type Appointme nt Facility Name December 13, 2023 12:00 PM AMBULATORY - MEDICINE [facility] Jan 05, 2024 09:00 AM AMBULATORY - MEDICINE [facility] Feb 02, 2024 08:30 AM AMBULATORY - MEDICINE [facility] Mar 03, 2024 08:00 AM AMBULATORY - SURGERY [facility] Mar 06, 2024 08:30 AM AMBULATORY - MEDICINE [facility] Apr 04, 2024 11:00 AM AMBULATORY - MEDICINE [facility] Apr 04, 2024 11:30 AM AMBULATORY - MEDICINE [facility] Apr 10, 2024 08:30 AM AMBULATORY - MEDICINE [facility] Apr 11, 2024 02:15 PM AMBULATORY - MEDICINE [facility] Apr 26, 2024 10:00 AM AMBULATORY - SURGERY [facility] May 02, 2024 11:00 AM AMBULATORY - MEDICINE [facility] May 09, 2024 10:40 AM AMBULATORY - NONE Crystal Rodriguez [facility] May 29, 2024 11:00 AM AMBULATORY - MEDICINE [facility] Active, Pending, and Scheduled Orders This section includes a listing of several types of active, pending, and scheduled orders, including clinic medications orders, diagnostic test orders, procedure orders and consult orders; where the start date of the order is 45 days before the date of the Encounter or 45 days after the date of theEncounter. The data comes from all [place] treatment facilities. Test Date/Time Test Type Test Details Facility Name December 22, 2023 12:00 AM Laboratory - Chemi stry Order CBC BLOOD SP [facility] December 22, 2023 12:00 AM Laboratory - Chemi stry Order BASIC METABOLIC PANEL GREEN LI/HEP BLD/PLAS PLASMA SP [facility] Lab Results: +/- 30 days of the encounter This section includes the Chemistry and Hematology Lab Results on record with [place] for the patient. Radiology Reports and Pathology Reports are provided separately, in subsequent sections. Lab Results This section contains the Chemistry/Hematology Results that were resulted 30 days before or 30 daysafter the date of the Encounter. Date/Time Source Result Type Result - Unit Interpretation Reference Range Comment November 30, 2023 11:33 AM [facility] URINALYSIS (STL-PB) Specimen Type: URINE Comment: High [...] November 29, 2023 11:50 AM Reporting Lab: [facility] [address] [facility] [address] Performing Lab: [facility] [address] [facility] [id number] URINE COLOR Yellow Yellow U.BILIRUBIN Negative mg/dL [...] H 1.005-1.029 November 30, 2023 11:23 AM [facility] HGA1C Specimen Type: BLOOD No comment entered. Ordering Provider: SWAPNA JUNG Report Released Date/Time: November 29, 2023 11:50 AM Reporting Lab: [place] [address] Performing Lab: [place] [id number] HGA1C 10.9 H 4.0-6.0 November 30, 2023 11:23 AM [facility] TSH W/ REFLEX FT4 (STL) Specimen Type: PLASMA Comment: No hemolysis noted. Ordering Provider: SWAPNA JNUG Report Released Date/Time: November 29, 2023 11:50 AM Reporting Lab: [address] [address] Performing Lab: [address] [address] TSH 0.829 u[IU]/mL 0.47-5 November 30, 2023 11:23 AM [facility] COMPREHENSIVE METABOLIC PANEL Specimen Type: PLASMA Comment: No hemolysis noted. Ordering Provider: SWAPNA JUNG Report Released Date/Time: November 29, 2023 11:50 AM Reporting Lab: [address] [address] Performing Lab: [address] [address] CREATININE 1.50 mg/dL H 0.6-1.1 UREA NITROGEN [...] November 30, 2023 11:23 AM [facility] CBC Specimen Type: BLOOD Comment: CELL DIFFERENTIAL OBTAINED FROM ALBUMIN SLIDE. Ordering Provider: SWAPNA JUNG Report Released Date/Time: November 29, 2023 11:50 AM Reporting Lab: [facility] [address] [facility] [address] Performing Lab: [facility] [address] [place] [phone] WBC 15.9 10*3/uL H 3.6-11.2 RBC 4.92 [...] 10*3/uL 2.10-8.00 November 29, 2023 11:[address] [facility] GLUCOSE,BLOOD-poct (STL) Specimen Type: BLOOD Comment: Test Performed by: [id number] Meter #: [id number] Ordering Provider: SWAPNA JUNG Report Released Date/Time: November 29, 2023 03:56 PM Reporting Lab: . [facility] [address] [address] Performing Lab: . [facility] [address] [address] GLUCOSE,BLOOD-p oct (STL) 358 mg/dL H 72-99 Vital Signs: All taken on the encounter date This section contains inpatient and outpatient Vital Signs collected on the date of the Encounter. Date/Time Temperature Pulse Blood Pressure Respiratory Rate SP02 Pain Height Weight Body Mass Index Source November 29, 2023 11:08 AM 97.4 95 114/75 [address] [facility] Social History: Smoking Status (Most current) [...] 17, 2014 ADVANCE DIRECTIVE DISCUSSION TAMMIE GARDNER [facility] Radiology Reports: +/- 30 days [...] the Encounter. The data comes from all [place] treatment facilities. Date/Time Radiology Report Provider Source November 30, 2023 10:59 AM CHEST X-RAY, 2 VIE WS: AMBER WIN [id number] -[id number] Exm Date: NOVEMBER 30, 2023@10:59 Req Phys: SWAPNA JUNG [facility] (Mele Qureshi Img Loc: -MAIN RADIOLOGY SUITE Service: [facility], [address] [place] [address] (Case [id number] COMPLETE) CHEST X-RAY, 2 VIEWS (RAD Detailed) CPT:23503 Reason for Study: Cough and chest congestion Clinical History: Cough and chest congestion Report Status: Verified Date Reported: NOVEMBER 30, 2023 Date Verified: NOVEMBER 30, 2023 [employer] E-Sig:/[email or web address]/ZAIDA WINSLOW MD Report: PA and lateral chest x-ray Comparison: none Heart: No significant pathology Lungs: No significant pathology. Mediastinum: No significant pathology Pulmonary vasculature: Within normal limits. Other: Impression: No acute disease Primary Interpreting Staff: ZAIDA WINSLOW MD, Radiologist (Pole Framer Machine) /CPG ZAIDA WINSLOW [facility] Encounter Notes: All associated encounter notes This section contains the clinical notes associated to the Encounter. Date/Time Encounter Note(s) Provider Source December 14, 2023 07:31 AM ADDENDUM: LOCAL TITLE: Addendum STANDARD TITLE: ADDENDUM DATE OF NOTE: DECEMBER 14, 2023@07:31:51 ENTRY DATE: DECEMBER 14, 2023@07:31:52 AUTHOR: OSIEL POST EXP COSIGNER: URGENCY: STATUS: COMPLETED During visit with [facility], requested renewals for the following prescriptions: - cholecalciferol - hydrocortisone cream - sulfacetamide suspension Please renew if deemed appropriate. Thank you! /jacek/ Osiel Post, Pharm.D. Clinical Pharmacist Signed: 12/14/2023 07:33 Receipt Acknowledged By: 12/14/2023 08:25 /jacek/ SWAPNA JUNG staff physician --- Original Document --- 11/29/23 PRIMARY CARE PROVIDER ESTABLISHED VISIT STL: ESTABLISHED PATIENT [id number]: REASON FOR VISIT/CHIEF COMPLAINT: URI/uncontrolled diabetes Please note that this dictation was completed with computer voice recognition software, often unanticipated grammatical, syntax and other interpretive errors are inadvertently transcribed by the computer software. Please disregard these errors. HPI: 58 YO AAF with medical hx of DM2,Hypertension, HL s/p bilateral carpal tunnel syndrome, ACN/facial scars Back pain, knee pain s/p bilateral knee surgery HPI: Patient is here for follow-up after seen in urgent care for cough and chest Chest congestion, treated with oral steroid with tapering dose, 1 day Medicine left Patient is complaining of chest congestion and cough causing chest wall pain Asking for albuterol and Flonase inhaler Patient reports she again break out in rash all over her face and neck Taking doxycycline twice daily Blood sugars are running higher than 500 feeling thirsty Per patient taking all medicines and tolerating well Following non-VA podiatry for right foot fracture had surgery in healing Process, and Ortho shoes Denies any other complaint for today WHAT IS YOUR GOAL FOR TODAY? As above SOURCE(S) OF HISTORY: Patient PAST MEDICAL HISTORY: 1) Obesity (SNOMED CT 752745932) 2) 599 3) Acute pharyngitis 4) Chronic back pain (SNOMED CT 758401926) 5) Dermatophytosis of foot (ICD-9-CM 110.4) 6) Asthma * (ICD-9-CM 493.90) 7) Knee pain (SNOMED CT 4866001173) 8) Psychotic Disorder NOS 9) Chronic Low Back Pain (ICD-9-CM 724.2) 10) Asthma (SNOMED CT 927788925) 11) Benign essential hypertension (SNOMED CT 3302756) 12) Anxiety Disorder NOS 13) Chronic anxiety (SNOMED CT 719255480) 14) Muscle Spasm (ICD-9-CM 728.85) 15) Breast Mass (ICD-9-CM 611.72) 16) OA - Osteoarthritis (SNOMED CT 338273869) 17) Hypokalemia * (ICD-9-CM 276.8) 18) 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< (SNOMED CT 337183806) 19) Asthma (SNOMED CT 760448184) 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 MEDICATION RECONCILIATION: I have reviewed the patient's medication list with the patient and/or his/her care-principal developer. Handwritten corrections, additions and/or deletions were made to the list. Corrected Outpatient Medication List was provided to the patient/caregiver. Active Outpatient Medications (including Supplies): Active Outpatient Medications Status 1) ALOGLIPTIN 25MG TAB TAKE ONE TABLET BY MOUTH ONCE A ACTIVE DAY TO LOWER BLOOD SUGAR 2) CAMPHOR 0.5/MENTHOL 0.5% LOTION APPLY LIBERALLY TO ACTIVE AFFECTED AREA(S) NEEDED FOR ITCHING - (EXTERNAL USE ONLY) 3) CETIRIZINE HCL 10MG TAB TAKE ONE TABLET BY MOUTH ONCE ACTIVE A DAY TAKE DAILY FOR ITCH AND ALLERGIES 4) DOXYCYCLINE HYCLATE 100MG TAB TAKE ONE TABLET BY ACTIVE MOUTH TWICE A DAY FOR ACNE WITH A FULL MEAL AND GLASS OF WATER. 5) TACROLIMUS 0.1% TOP OINT APPLY LIGHTLY TO AFFECTED ACTIVE AREA(S) ONCE A DAY FOR FACE (EXTERNAL USE ONLY) Active Non-VA Medications Status 1) Non-VA ASPIRIN 81MG EC TAB 81MG BY MOUTH ONCE A DAY ACTIVE NEEDED 2) Non-VA MULTIVITAMIN CAP/TAB 1 TABLET BY MOUTH ONCE A ACTIVE DAY 7 Total Medications ROS: Denies fevers or chills No ear pain, positive nasal congestion and sore throat No neck pain No difficulty in breathing, cough and wheezing No chest pain, shortness of breath or palpitation Denies abdominal pain, no nausea/vomiting, no diarrhea or constipation Denies urinary complaint Skin: Skin rash around face and neck No lower leg edema PHYSICAL EXAMINATION: Female General appearance: VITALS (most recent, as listed in the electronic record): B/P: 114/75 (11/29/2023 11:08) Pulse: 95 (11/29/2023 11:08) Temperature: 97.4 F [36.3 C] (11/29/2023 11:08) Weight: 169 lb [76.66 kg] (11/29/2023 11:08) Height: 59 in [149.9 cm] (10/29/2023 08:22) BMI: 34.2 Pain: 8 (11/29/2023 11:08) (0-10 scale) Patient Weight History - Last Four 1. 169.0 lbs. / 76.7 kg. on NOVEMBER 29, 2023@11:08:25 2. 181.8 lbs. / 82.5 kg. on OCT 29, 2023@08:22:36 3. 181.3 lbs. / 82.2 kg. on JUL 23, 2023@07:51:53 4. 180.0 lbs. / 81.7 kg. on MAY 28, 2023@14:05:25 Physical exam 58 years old Afro-Swazi female, NAD, well-developed HEENT: TMs intact, OP pink Neck: Supple. No LAD Chest: Decreased breath sounds all over chest no wheeze Little tender around right chest wall CV:RRR Abd:soft, nontender, nondistended Extremities: Right foot in Ortho shoes Skin; healing lesion around neck, face is clear DATA REVIEW: HbA1C: HGA1C 7.4 H % 06/10/2023 08:40 Lipid Panel: TRIGLYCERIDE 83 mg/dL 06/10/2023 08:40 CHOLESTEROL 172 mg/dL 06/10/2023 08:40 HDL(New) 66 mg/dL 06/10/2023 08:40 CALCULATED LDL 89 mg/dL 06/10/2023 08:40 CMP: SODIUM 139 mEq/L 06/10/2023 08:40 POTASSIUM 4.3 mEq/L 06/10/2023 08:40 CHLORIDE 104 mEq/L 06/10/2023 08:40 UREA NITROGEN 12.6 mg/dL 06/10/2023 08:40 CREATININE 1.01 mg/dL 06/10/2023 08:40 CALCIUM 9.7 mg/dL 06/10/2023 08:40 PROTEIN 7.3 g/dL 06/10/2023 08:40 ALBUMIN 4.7 g/dL 06/10/2023 08:40 ALKALINE PHOSPHATASE 94 U/L 06/10/2023 08:40 ALT/SGPT 38 U/L 06/10/2023 08:40 AST/SGOT 28 U/L 06/10/2023 08:40 TOTAL BILIRUBIN 0.4 mg/dL 06/10/2023 08:40 CARBON DIOXIDE 28 mEq/L 06/10/2023 08:40 GLUCOSE 275 H mg/dL 06/10/2023 08:40 EGFR (CKD-EPI 2020) 64.1 06/10/2023 08:40 CBC: WBC 6.8 10*3/uL 06/10/2023 08:40 RBC 4.39 10*6/uL 06/10/2023 08:40 HGB 12.1 g/dL 06/10/2023 08:40 HCT 39.4 % 06/10/2023 08:40 MCV 89.7 fL 06/10/2023 08:40 MCH 27.6 pg 06/10/2023 08:40 MCHC 30.7 L g/dL 06/10/2023 08:40 RDW 13.5 % 06/10/2023 08:40 PLT 180 10*3/uL 06/10/2023 08:40 MPV 12.7 H fL 11/30/2022 13:18 NEUTROPHILS, AUTO % 57 % 06/10/2023 08:40 LYMPHOCYTES, AUTO % 29 % 06/10/2023 08:40 MONOCYTES, AUTO % 7 % 06/10/2023 08:40 EOSINOPHILS, AUTO % 6 % 06/10/2023 08:40 BASOPHILS, AUTO % 1 % 06/10/2023 08:40 IMMATURE GRANS, AUTO % 0.4 % 12/08/2021 08:30 NEUTROPHILS, ABSOLUTE 3.85 10*3/uL 06/10/2023 08:40 LYMPHOCYTES, ABSOLUTE 1.99 10*3/uL 06/10/2023 08:40 MONOCYTES, ABSOLUTE 0.44 10*3/uL 06/10/2023 08:40 EOSINOPHILS, ABSOLUTE 0.41 10*3/uL 06/10/2023 08:40 BASOPHILS, ABSOLUTE 0.04 10*3/uL 06/10/2023 08:40 IMMATURE GRANS, AUTO ABS 0.03 10*3/uL 12/08/2021 08:30 IMMATURE PLT FRACTION 12.9 H % 06/10/2023 08:40 TSH: TSH 1.154 uIU/mL 06/10/2023 08:40 INR: INR VALUE 1.1 INR 11/30/2022 13:18 PROTIME 11.8 sec 11/30/2022 13:18 UA: URINE COLOR [place] 11/30/2022 13:18 APPEARANCE Ex.Turbid 11/30/2022 13:18 U.PH 5.5 11/30/2022 13:18 U.BILIRUBIN Negative mg/dL 11/30/2022 13:18 U.NITRITE Negative mg/dL 11/30/2022 13:18 URINE RBC/HPF 3 /HPF 11/30/2022 13:18 URINE WBC/HPF <1 /HPF 11/30/2022 13:18 BACTERIA RARE /HPF 11/30/2022 13:18 SQUAMOUS EPITH. 11 /HPF 11/30/2022 13:18 MUCUS MANY /LPF 11/30/2022 13:18 HYALINE CASTS 3 /LPF 09/04/2022 19:31 Chest x-ray: Impression for CHEST 2 VIEWS PA&LAT, 01/08/05, case [id number] No evidence of active pulmonary disease. Result: Acceptable Follow-up Action: Data results reviewed with patient and/or caregiver. Assessment/planning 1. -Bronchitis/CAP/asthma, patient is already on doxycycline Get chest x-ray Albuterol and Flonase refilled Treat cough with Sarah Mckeon Highly recommend staying hydrated Proceed to ER if symptoms get worse Patient is going to pick medicine from this even though Recommend using albuterol inhaler 2 puffs every 4-6 hour as needed Will have for cough 2. -Diabetes, per last labs A1c was 7.4, [...] alogliptin and Lantus Follow patient in a.m. 3. -Skin rash/acne, continue with doxycycline Refer to Derm again Patient was no-show for her last visit 4. -Hypertension, blood pressure at goal Continue with current medicine Continue with low-salt diet Recommended staying hydrated Patient is on the water pill. 5. -Hyperlipidemia, continue with current medicine Denies side effect Continue with heart healthy diet 6. -CTS/ulnar neuropathy, following Ortho 7. -Depression, denies SI/HI Continue with current medicine continue follow 8. -S/p, right big toe surgery, continue follow non-VA podiatry Check labs today patient is going to have [facility] at [facility]: Order placed SUMMARY STATEMENT: Plan of care has been discussed with including expected therapeutic benefits and potential side effects of prescribed medication and treatments. [place] verbalizes understanding and is in agreement with the plan of care. Patient was instructed to keep all scheduled appointments and contact order entry clerk for any additional problems. Medication Reconciliation Opt STL: I have reviewed the patient's medication list (including active outpatient prescriptions dispensed from this [facility] (local) and dispensed from another VA or [facility] facility (remote) as well as inpatient orders (local pending and active), local clinic medications, locally documented non-VA medications, and local prescriptions that have or been discontinued in the past 90 days.) with the patient and/or his/her care-principal developer. Handwritten corrections, additions and/or deletions were made to the list, as appropriate. Corrected Outpatient Medication List was provided to the patient/caregiver. Inhaler Use in COPD: Patient had Inhaler Use education at this encounter. Level of Understanding: Fco /vinnie JUNG staff physician Signed: 11/29/2023 12:20 12/07/2023 ADDENDUM STATUS: COMPLETED A1C > 10, need close follow up for optimal control of diabetes. Kraig /vinnie JUNG staff physician Signed: 12/07/2023 11:12 Receipt Acknowledged By: 12/07/2023 22:59 /jacek/ Osiel Post Pharm.D. Clinical Pharmacist 12/07/2023 ADDENDUM STATUS: COMPLETED RTC entered for scheduling with Team C PharmRasta for closer DM management/follow-up. Thank you! /vinnie Post Pharm.D. Clinical Pharmacist Signed: 12/07/2023 22:59 12/13/2023 ADDENDUM STATUS: COMPLETED Please print out test letter dated 12-08-23 to mail pt.kraig JUNG staff physician Signed: 12/13/2023 08:52 Receipt Acknowledged By: 12/13/2023 10:02 /vinnie DUNBAR ADVANCE MEDICAL SUPPORT ASSISANT OSIEL POST [facility] December 13, 2023 08:51 AM ADDENDUM: LOCAL TITLE: Addendum STANDARD TITLE: ADDENDUM DATE OF NOTE: DECEMBER 13, 2023@08:51:25 ENTRY DATE: DECEMBER 13, 2023@08:51:25 AUTHOR: SWAPNA JUNG EXP COSIGNER: URGENCY: STATUS: COMPLETED Please print out test letter dated 12-08-23 to mail pt.kraig /vinnie JUNG staff physician Signed: 12/13/2023 08:52 Receipt Acknowledged By: 12/13/2023 10:02 /vinnie DUNBAR ADVANCE MEDICAL SUPPORT ASSISANT --- Original Document --- 11/29/23 PRIMARY CARE PROVIDER ESTABLISHED VISIT STL: ESTABLISHED PATIENT [id number]: REASON FOR VISIT/CHIEF COMPLAINT: URI/uncontrolled diabetes Please note that this dictation was completed with computer voice recognition software, often unanticipated grammatical, syntax and other interpretive errors are inadvertently transcribed by the computer software. Please disregard these errors. HPI: 58 YO AAF with medical hx of DM2,Hypertension, HL s/p bilateral carpal tunnel syndrome, ACN/facial scars Back pain, knee pain s/p bilateral knee surgery HPI: Patient is here for follow-up after seen in urgent care for cough and chest Chest congestion, treated with oral steroid with tapering dose, 1 day Medicine left Patient is complaining of chest congestion and cough causing chest wall pain Asking for albuterol and Flonase inhaler Patient reports she again break out in rash all over her face and neck Taking doxycycline twice daily Blood sugars are running higher than 500 feeling thirsty Per patient taking all medicines and tolerating well Following non-VA podiatry for right foot fracture had surgery in healing Process, and Ortho shoes Denies any other complaint for today WHAT IS YOUR GOAL FOR TODAY? As above SOURCE(S) OF HISTORY: Patient PAST MEDICAL HISTORY: 1) Obesity (SNOMED CT 142100750) 2) 599 3) Acute pharyngitis 4) Chronic back pain (SNOMED CT 993025733) 5) Dermatophytosis of foot (ICD-9-CM 110.4) 6) Asthma * (ICD-9-CM 493.90) 7) Knee pain (SNOMED CT 6783141173) 8) Psychotic Disorder NOS 9) Chronic Low Back Pain (ICD-9-CM 724.2) 10) Asthma (SNOMED CT 702049125) 11) Benign essential hypertension (SNOMED CT 5215372) 12) Anxiety Disorder NOS 13) Chronic anxiety (SNOMED CT 701347995) 14) Muscle Spasm (ICD-9-CM 728.85) 15) Breast Mass (ICD-9-CM 611.72) 16) OA - Osteoarthritis (SNOMED CT 292284116) 17) Hypokalemia * (ICD-9-CM 276.8) 18) 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< (SNOMED CT 325715891) 19) Asthma (SNOMED CT 641461934) 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 MEDICATION RECONCILIATION: I have reviewed the patient's medication list with the patient and/or his/her care-principal developer. Handwritten corrections, additions and/or deletions were made to the list. Corrected Outpatient Medication List was provided to the patient/caregiver. Active Outpatient Medications (including Supplies): Active Outpatient Medications Status 1) ALOGLIPTIN 25MG TAB TAKE ONE TABLET BY MOUTH ONCE A ACTIVE DAY TO LOWER BLOOD SUGAR 2) CAMPHOR 0.5/MENTHOL 0.5% LOTION APPLY LIBERALLY TO ACTIVE AFFECTED AREA(S) NEEDED FOR ITCHING - (EXTERNAL USE ONLY) 3) CETIRIZINE HCL 10MG TAB TAKE ONE TABLET BY MOUTH ONCE ACTIVE A DAY TAKE DAILY FOR ITCH AND ALLERGIES 4) DOXYCYCLINE HYCLATE 100MG TAB TAKE ONE TABLET BY ACTIVE MOUTH TWICE A DAY FOR ACNE WITH A FULL MEAL AND GLASS OF WATER. 5) TACROLIMUS 0.1% TOP OINT APPLY LIGHTLY TO AFFECTED ACTIVE AREA(S) ONCE A DAY FOR FACE (EXTERNAL USE ONLY) Active Non-VA Medications Status 1) Non-VA ASPIRIN 81MG EC TAB 81MG BY MOUTH ONCE A DAY ACTIVE NEEDED 2) Non-VA MULTIVITAMIN CAP/TAB 1 TABLET BY MOUTH ONCE A ACTIVE DAY 7 Total Medications ROS: Denies fevers or chills No ear pain, positive nasal congestion and sore throat No neck pain No difficulty in breathing, cough and wheezing No chest pain, shortness of breath or palpitation Denies abdominal pain, no nausea/vomiting, no diarrhea or constipation Denies urinary complaint Skin: Skin rash around face and neck No lower leg edema PHYSICAL EXAMINATION: Female General appearance: VITALS (most recent, as listed in the electronic record): B/P: 114/75 (11/29/2023 11:08) Pulse: 95 (11/29/2023 11:08) Temperature: 97.4 F [36.3 C] (11/29/2023 11:08) Weight: 169 lb [76.66 kg] (11/29/2023 11:08) Height: 59 in [149.9 cm] (10/29/2023 08:22) BMI: 34.2 Pain: 8 (11/29/2023 11:08) (0-10 scale) Patient Weight History - Last Four 1. 169.0 lbs. / 76.7 kg. on NOVEMBER 29, 2023@11:08:25 2. 181.8 lbs. / 82.5 kg. on OCT 29, 2023@08:22:36 3. 181.3 lbs. / 82.2 kg. on JUL 23, 2023@07:51:53 4. 180.0 lbs. / 81.7 kg. on MAY 28, 2023@14:05:25 Physical exam 58 years old Afro-Swazi female, NAD, well-developed HEENT: TMs intact, OP pink Neck: Supple. No LAD Chest: Decreased breath sounds all over chest no wheeze Little tender around right chest wall CV:RRR Abd:soft, nontender, nondistended Extremities: Right foot in Ortho shoes Skin; healing lesion around neck, face is clear DATA REVIEW: HbA1C: HGA1C 7.4 H % 06/10/2023 08:40 Lipid Panel: TRIGLYCERIDE 83 mg/dL 06/10/2023 08:40 CHOLESTEROL 172 mg/dL 06/10/2023 08:40 HDL(New) 66 mg/dL 06/10/2023 08:40 CALCULATED LDL 89 mg/dL 06/10/2023 08:40 CMP: SODIUM 139 mEq/L 06/10/2023 08:40 POTASSIUM 4.3 mEq/L 06/10/2023 08:40 CHLORIDE 104 mEq/L 06/10/2023 08:40 UREA NITROGEN 12.6 mg/dL 06/10/2023 08:40 CREATININE 1.01 mg/dL 06/10/2023 08:40 CALCIUM 9.7 mg/dL 06/10/2023 08:40 PROTEIN 7.3 g/dL 06/10/2023 08:40 ALBUMIN 4.7 g/dL 06/10/2023 08:40 ALKALINE PHOSPHATASE 94 U/L 06/10/2023 08:40 ALT/SGPT 38 U/L 06/10/2023 08:40 AST/SGOT 28 U/L 06/10/2023 08:40 TOTAL BILIRUBIN 0.4 mg/dL 06/10/2023 08:40 CARBON DIOXIDE 28 mEq/L 06/10/2023 08:40 GLUCOSE 275 H mg/dL 06/10/2023 08:40 EGFR (CKD-EPI 2020) 64.1 06/10/2023 08:40 CBC: WBC 6.8 10*3/uL 06/10/2023 08:40 RBC 4.39 10*6/uL 06/10/2023 08:40 HGB 12.1 g/dL 06/10/2023 08:40 HCT 39.4 % 06/10/2023 08:40 MCV 89.7 fL 06/10/2023 08:40 MCH 27.6 pg 06/10/2023 08:40 MCHC 30.7 L g/dL 06/10/2023 08:40 RDW 13.5 % 06/10/2023 08:40 PLT 180 10*3/uL 06/10/2023 08:40 MPV 12.7 H fL 11/30/2022 13:18 NEUTROPHILS, AUTO % 57 % 06/10/2023 08:40 LYMPHOCYTES, AUTO % 29 % 06/10/2023 08:40 MONOCYTES, AUTO % 7 % 06/10/2023 08:40 EOSINOPHILS, AUTO % 6 % 06/10/2023 08:40 BASOPHILS, AUTO % 1 % 06/10/2023 08:40 IMMATURE GRANS, AUTO % 0.4 % 12/08/2021 08:30 NEUTROPHILS, ABSOLUTE 3.85 10*3/uL 06/10/2023 08:40 LYMPHOCYTES, ABSOLUTE 1.99 10*3/uL 06/10/2023 08:40 MONOCYTES, ABSOLUTE 0.44 10*3/uL 06/10/2023 08:40 EOSINOPHILS, ABSOLUTE 0.41 10*3/uL 06/10/2023 08:40 BASOPHILS, ABSOLUTE 0.04 10*3/uL 06/10/2023 08:40 IMMATURE GRANS, AUTO ABS 0.03 10*3/uL 12/08/2021 08:30 IMMATURE PLT FRACTION 12.9 H % 06/10/2023 08:40 TSH: TSH 1.154 uIU/mL 06/10/2023 08:40 INR: INR VALUE 1.1 INR 11/30/2022 13:18 PROTIME 11.8 sec 11/30/2022 13:18 UA: URINE COLOR Baca 11/30/2022 13:18 APPEARANCE Ex.Turbid 11/30/2022 13:18 U.PH 5.5 11/30/2022 13:18 U.BILIRUBIN Negative mg/dL 11/30/2022 13:18 U.NITRITE Negative mg/dL 11/30/2022 13:18 URINE RBC/HPF 3 /HPF 11/30/2022 13:18 URINE WBC/HPF <1 /HPF 11/30/2022 13:18 BACTERIA RARE /HPF 11/30/2022 13:18 SQUAMOUS EPITH. 11 /HPF 11/30/2022 13:18 MUCUS MANY /LPF 11/30/2022 13:18 HYALINE CASTS 3 /LPF 09/04/2022 19:31 Chest x-ray: Impression for CHEST 2 VIEWS PA&LAT, 01/08/05, case [id number] No evidence of active pulmonary disease. Result: Acceptable Follow-up Action: Data results reviewed with patient and/or caregiver. Assessment/planning 1. -Bronchitis/CAP/asthma, patient is already on doxycycline Get chest x-ray Albuterol and Flonase refilled Treat cough with Tessalon Perljacek Highly recommend staying hydrated Proceed to ER if symptoms get worse Patient is going to pick medicine from this even though Recommend using albuterol inhaler 2 puffs every 4-6 hour as needed Will have for cough 2. -Diabetes, per last labs A1c was 7.4, [...] alogliptin and Lantus Follow patient in a.m. 3. -Skin rash/acne, continue with doxycycline Refer to Derm again Patient was no-show for her last visit 4. -Hypertension, blood pressure at goal Continue with current medicine Continue with low-salt diet Recommended staying hydrated Patient is on the water pill. 5. -Hyperlipidemia, continue with current medicine Denies side effect Continue with heart healthy diet 6. -CTS/ulnar neuropathy, following Ortho 7. -Depression, denies SI/HI Continue with current medicine continue follow 8. -S/p, right big toe surgery, continue follow non-VA podiatry Check labs today patient is going to have labs at [facility]: Order placed SUMMARY STATEMENT: Plan of care has been discussed with including expected therapeutic benefits and potential side effects of prescribed medication and treatments. verbalizes understanding and is in agreement with the plan of care. Patient was instructed to keep all scheduled appointments and contact order entry clerk for any additional problems. Medication Reconciliation Opt STL: I have reviewed the patient's medication list (including active outpatient prescriptions [facility] ([facility]) and dispensed from another [place] or [facility] facility (remote) as well as inpatient orders (local pending and active), local clinic medications, locally documented non-VA medications, and local prescriptions that have or been discontinued in the past 90 days.) with the patient and/or his/her care-principal developer. Handwritten corrections, additions and/or deletions were made to the list, as appropriate. Corrected Outpatient Medication List was provided to the patient/caregiver. Inhaler Use in COPD: Patient had Inhaler Use education at this encounter. Level of Understanding: Good /jacek/ SWAPNA JUNG staff physician Signed: 11/29/2023 12:20 12/07/2023 ADDENDUM STATUS: COMPLETED A1C > 10, need close follow up for optimal control of diabetes. Thanks /vinnie JUNG staff physician Signed: 12/07/2023 11:12 Receipt Acknowledged By: 12/07/2023 22:59 /jacek/ Pharm. KoryDCrystal Clinical Pharmacist 12/07/2023 ADDENDUM STATUS: COMPLETED RTC entered for scheduling with Team C PharmRasta for closer DM management/follow-up. Thank you! /vinnie Post PharmNanda. Clinical Pharmacist Signed: 12/07/2023 22:59 SWAPNA JUNG [facility] December 08, 2023 11:51 AM PHYSICIAN LETTERS: LOCAL TITLE: TEST RESULT GENERAL LETTER ST STANDARD TITLE: PHYSICIAN LETTERS DATE OF NOTE: DECEMBER 08, 2023@11:51 ENTRY DATE: DECEMBER 08, 2023@11:51:08 AUTHOR: SWAPNA JUNG EXP COSIGNER: URGENCY: STATUS: COMPLETED [facility] [address] [place] [address] DECEMBER 08, 2023 AMBER WIN [address] [place] [id number] Dear Amber Win, I would like to update you on your recent test results. HEMOGLOBIN A1C - Gives us information about your diabetes (sugar or glucose) control over the past 3 months. Your target is to keep your A1C below 7 %. HGA1C 10.9 H % 11/30/2023 11:23 Your A1C has gone up and higher than goal. I have referred you to clinical pharmacist for close follow up and adjustment Of medicines. Recommend for low CARB diet and weight loss. CBC - A complete blood count (CBC) gives important information about the kinds and numbers of cells in the blood, especially red blood cells, white blood cells, and platelets. HGB 13.3 g/dL 11/30/2023 11:23 HEMATOCRIT 41.2 % (11/30/23 11:23) PLT 218 10*3/uL 11/30/2023 11:23 WHITE BLOOD COUNT 15.9 10*3/uL H (11/30/23 11:23) These readings are within normal limits except white blood cells are Elevated most probably due to recent illness. Please stop by clinic for non-fasting labs on 12-22-23 to follow on Abnormal labs. CHEM 7 - This is important information about the current status of your kidneys, liver, and electrolyte and acid/base balance as well as of your blood sugar and blood proteins. SODIUM 132 L mEq/L 11/30/2023 11:23 POTASSIUM 3.9 mEq/L 11/30/2023 11:23 CHLORIDE 97 L mEq/L 11/30/2023 11:23 UREA NITROGEN 26.8 H mg/dL 11/30/2023 11:23 CREATININE 1.50 H mg/dL 11/30/2023 11:23 CALCIUM 10.2 mg/dL 11/30/2023 11:23 CARBON DIOXIDE 26 mEq/L 11/30/2023 11:23 GLUCOSE 386 H mg/dL 11/30/2023 11:23 EGFR (CKD-EPI 2021) 39.9 11/30/2023 11:23 These readings are within normal limits except Sodium is low Creatine in elevated, which means renal functions are impaired Most probably due to uncontrolled diabetes and dehydration Please stop by clinic for non-fasting labs on 12-12-23 to Follow on renal functions. LIVER FUNCTION PANEL - These are tests for liver function: PROTEIN 7.4 g/dL 11/30/2023 11:23 ALBUMIN 4.2 g/dL 11/30/2023 11:23 TOTAL BILIRUBIN 0.4 mg/dL 11/30/2023 11:23 ALKALINE PHOSPHATASE 134 U/L 11/30/2023 11:23 AST/SGOT 17 U/L 11/30/2023 11:23 ALT/SGPT 30 U/L 11/30/2023 11:23 These readings are within normal limits. TSH - Thyroid-stimulating hormone (also known as TSH or thyrotropin) is a peptide hormone synthesized and secreted by thyrotrope cells in the anterior pituitary gland, which regulates the endocrine function of the thyroid gland. TSH TSH 0.829 uIU/mL 11/30/2023 11:23 These readings are within normal limits. URINALYSIS - A urinalysis (or UA ) is an array of tests performed on urine and one of the most common methods of medical diagnosis. URINALYSIS URINE COLOR Yellow 11/30/2023 11:33 APPEARANCE Clear 11/30/2023 11:33 U.PH 5.5 11/30/2023 11:33 U.BILIRUBIN Negative mg/dL 11/30/2023 11:33 U.NITRITE Negative mg/dL 11/30/2023 11:33 URINE RBC/HPF 2 /HPF 11/30/2023 11:33 URINE WBC/HPF 2 /HPF 11/30/2023 11:33 BACTERIA RARE /HPF 11/30/2022 13:18 SQUAMOUS EPITH. 1 /HPF 11/30/2023 11:33 MUCUS RARE /LPF 11/30/2023 11:33 HYALINE CASTS 32 /LPF 11/30/2023 11:33 These readings are within normal limits. I attempted to contact you in efforts to inform about labs,however I was unable To reach you Hope you will continue doing well. Please do not hesitate to call back clinic at [phone] If you have any questions/concerns. Sincerely, SWAPNA JUNG staff physician AMBER WIN [facility] December 07, 2023 11:11 AM ADDENDUM: LOCAL TITLE: Addendum STANDARD TITLE: ADDENDUM DATE OF NOTE: DECEMBER 07, 2023@11:11:39 ENTRY DATE: DECEMBER 07, 2023@11:11:39 AUTHOR: SWAPNA JUNG EXP COSIGNER: URGENCY: STATUS: COMPLETED A1C > 10, need close follow up for optimal control of diabetes. Thanks /jacek/ SWAPNA JUNG staff physician Signed: 12/07/2023 11:12 Receipt Acknowledged By: 12/07/2023 22:59 /jacek/ Osiel Post, Pharm.D. Clinical Pharmacist --- Original Document --- 11/29/23 PRIMARY CARE PROVIDER ESTABLISHED VISIT STL: ESTABLISHED PATIENT [id number]: REASON FOR VISIT/CHIEF COMPLAINT: URI/uncontrolled diabetes Please note that this dictation was completed with computer voice recognition software, often unanticipated grammatical, syntax and other interpretive errors are inadvertently transcribed by the computer software. Please disregard these errors. HPI: 58 YO AAF with medical hx of DM2,Hypertension, HL s/p bilateral carpal tunnel syndrome, ACN/facial scars Back pain, knee pain s/p bilateral knee surgery HPI: Patient is here for follow-up after seen in urgent care for cough and chest Chest congestion, treated with oral steroid with tapering dose, 1 day Medicine left Patient is complaining of chest congestion and cough causing chest wall pain Asking for albuterol and Flonase inhaler Patient reports she again break out in rash all over her face and neck Taking doxycycline twice daily Blood sugars are running higher than 500 feeling thirsty Per patient taking all medicines and tolerating well Following non-VA podiatry for right foot fracture had surgery in healing Process, and Ortho shoes Denies any other complaint for today WHAT IS YOUR GOAL FOR TODAY? As above SOURCE(S) OF HISTORY: Patient PAST MEDICAL HISTORY: 1) Obesity (SNOMED CT 151513952) 2) 599 3) Acute pharyngitis 4) Chronic back pain (SNOMED CT 661040641) 5) Dermatophytosis of foot (ICD-9-CM 110.4) 6) Asthma * (ICD-9-CM 493.90) 7) Knee pain (SNOMED CT 4216950975) 8) Psychotic Disorder NOS 9) Chronic Low Back Pain (ICD-9-CM 724.2) 10) Asthma (SNOMED CT 937338599) 11) Benign essential hypertension (SNOMED CT 8901675) 12) Anxiety Disorder NOS 13) Chronic anxiety (SNOMED CT 162854698) 14) Muscle Spasm (ICD-9-CM 728.85) 15) Breast Mass (ICD-9-CM 611.72) 16) OA - Osteoarthritis (SNOMED CT 662535559) 17) Hypokalemia * (ICD-9-CM 276.8) 18) 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< (SNOMED CT 768779742) 19) Asthma (SNOMED CT 703616951) 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 MEDICATION RECONCILIATION: I have reviewed the patient's medication list with the patient and/or his/her care-principal developer. Handwritten corrections, additions and/or deletions were made to the list. Corrected Outpatient Medication List was provided to the patient/caregiver. Active Outpatient Medications (including Supplies): Active Outpatient Medications Status 1) ALOGLIPTIN 25MG TAB TAKE ONE TABLET BY MOUTH ONCE A ACTIVE DAY TO LOWER BLOOD SUGAR 2) CAMPHOR 0.5/MENTHOL 0.5% LOTION APPLY LIBERALLY TO ACTIVE AFFECTED AREA(S) NEEDED FOR ITCHING - (EXTERNAL USE ONLY) 3) CETIRIZINE HCL 10MG TAB TAKE ONE TABLET BY MOUTH ONCE ACTIVE A DAY TAKE DAILY FOR ITCH AND ALLERGIES 4) DOXYCYCLINE HYCLATE 100MG TAB TAKE ONE TABLET BY ACTIVE MOUTH TWICE A DAY FOR ACNE WITH A FULL MEAL AND GLASS OF WATER. 5) TACROLIMUS 0.1% TOP OINT APPLY LIGHTLY TO AFFECTED ACTIVE AREA(S) ONCE A DAY FOR FACE (EXTERNAL USE ONLY) Active Non-VA Medications Status 1) Non-VA ASPIRIN 81MG EC TAB 81MG BY MOUTH ONCE A DAY ACTIVE NEEDED 2) Non-VA MULTIVITAMIN CAP/TAB 1 TABLET BY MOUTH ONCE A ACTIVE DAY 7 Total Medications ROS: Denies fevers or chills No ear pain, positive nasal congestion and sore throat No neck pain No difficulty in breathing, cough and wheezing No chest pain, shortness of breath or palpitation Denies abdominal pain, no nausea/vomiting, no diarrhea or constipation Denies urinary complaint Skin: Skin rash around face and neck No lower leg edema PHYSICAL EXAMINATION: Female General appearance: VITALS (most recent, as listed in the electronic record): B/P: 114/75 (11/29/2023 11:08) Pulse: 95 (11/29/2023 11:08) Temperature: 97.4 F [36.3 C] (11/29/2023 11:08) Weight: 169 lb [76.66 kg] (11/29/2023 11:08) Height: 59 in [149.9 cm] (10/29/2023 08:22) BMI: 34.2 Pain: 8 (11/29/2023 11:08) (0-10 scale) Patient Weight History - Last Four 1. 169.0 lbs. / 76.7 kg. on NOVEMBER 29, 2023@11:08:25 2. 181.8 lbs. / 82.5 kg. on OCT 29, 2023@08:22:36 3. 181.3 lbs. / 82.2 kg. on JUL 23, 2023@07:51:53 4. 180.0 lbs. / 81.7 kg. on MAY 28, 2023@14:05:25 Physical exam 58 years old Afro-Swazi female, NAD, well-developed HEENT: TMs intact, OP pink Neck: Supple. No LAD Chest: Decreased breath sounds all over chest no wheeze Little tender around right chest wall CV:RRR Abd:soft, nontender, nondistended Extremities: Right foot in Ortho shoes Skin; healing lesion around neck, face is clear DATA REVIEW: HbA1C: HGA1C 7.4 H % 06/10/2023 08:40 Lipid Panel: TRIGLYCERIDE 83 mg/dL 06/10/2023 08:40 CHOLESTEROL 172 mg/dL 06/10/2023 08:40 HDL(New) 66 mg/dL 06/10/2023 08:40 CALCULATED LDL 89 mg/dL 06/10/2023 08:40 CMP: SODIUM 139 mEq/L 06/10/2023 08:40 POTASSIUM 4.3 mEq/L 06/10/2023 08:40 CHLORIDE 104 mEq/L 06/10/2023 08:40 UREA NITROGEN 12.6 mg/dL 06/10/2023 08:40 CREATININE 1.01 mg/dL 06/10/2023 08:40 CALCIUM 9.7 mg/dL 06/10/2023 08:40 PROTEIN 7.3 g/dL 06/10/2023 08:40 ALBUMIN 4.7 g/dL 06/10/2023 08:40 ALKALINE PHOSPHATASE 94 U/L 06/10/2023 08:40 ALT/SGPT 38 U/L 06/10/2023 08:40 AST/SGOT 28 U/L 06/10/2023 08:40 TOTAL BILIRUBIN 0.4 mg/dL 06/10/2023 08:40 CARBON DIOXIDE 28 mEq/L 06/10/2023 08:40 GLUCOSE 275 H mg/dL 06/10/2023 08:40 EGFR (CKD-EPI 2020) 64.1 06/10/2023 08:40 CBC: WBC 6.8 10*3/uL 06/10/2023 08:40 RBC 4.39 10*6/uL 06/10/2023 08:40 HGB 12.1 g/dL 06/10/2023 08:40 HCT 39.4 % 06/10/2023 08:40 MCV 89.7 fL 06/10/2023 08:40 MCH 27.6 pg 06/10/2023 08:40 MCHC 30.7 L g/dL 06/10/2023 08:40 RDW 13.5 % 06/10/2023 08:40 PLT 180 10*3/uL 06/10/2023 08:40 MPV 12.7 H fL 11/30/2022 13:18 NEUTROPHILS, AUTO % 57 % 06/10/2023 08:40 LYMPHOCYTES, AUTO % 29 % 06/10/2023 08:40 MONOCYTES, AUTO % 7 % 06/10/2023 08:40 EOSINOPHILS, AUTO % 6 % 06/10/2023 08:40 BASOPHILS, AUTO % 1 % 06/10/2023 08:40 IMMATURE GRANS, AUTO % 0.4 % 12/08/2021 08:30 NEUTROPHILS, ABSOLUTE 3.85 10*3/uL 06/10/2023 08:40 LYMPHOCYTES, ABSOLUTE 1.99 10*3/uL 06/10/2023 08:40 MONOCYTES, ABSOLUTE 0.44 10*3/uL 06/10/2023 08:40 EOSINOPHILS, ABSOLUTE 0.41 10*3/uL 06/10/2023 08:40 BASOPHILS, ABSOLUTE 0.04 10*3/uL 06/10/2023 08:40 IMMATURE GRANS, AUTO ABS 0.03 10*3/uL 12/08/2021 08:30 IMMATURE PLT FRACTION 12.9 H % 06/10/2023 08:40 TSH: TSH 1.154 uIU/mL 06/10/2023 08:40 INR: INR VALUE 1.1 INR 11/30/2022 13:18 PROTIME 11.8 sec 11/30/2022 13:18 UA: URINE COLOR Baca 11/30/2022 13:18 APPEARANCE Ex.Turbid 11/30/2022 13:18 U.PH 5.5 11/30/2022 13:18 U.BILIRUBIN Negative mg/dL 11/30/2022 13:18 U.NITRITE Negative mg/dL 11/30/2022 13:18 URINE RBC/HPF 3 /HPF 11/30/2022 13:18 URINE WBC/HPF <1 /HPF 11/30/2022 13:18 BACTERIA RARE /HPF 11/30/2022 13:18 SQUAMOUS EPITH. 11 /HPF 11/30/2022 13:18 MUCUS MANY /LPF 11/30/2022 13:18 HYALINE CASTS 3 /LPF 09/04/2022 19:31 Chest x-ray: Impression for CHEST 2 VIEWS PA&LAT, 01/08/05, case [id number] No evidence of active pulmonary disease. Result: Acceptable Follow-up Action: Data results reviewed with patient and/or caregiver. Assessment/planning 1. -Bronchitis/CAP/asthma, patient is already on doxycycline Get chest x-ray Albuterol and Flonase refilled Treat cough with Tessaldarirn Perljacek Highly recommend staying hydrated Proceed to ER if symptoms get worse Patient is going to pick medicine from this even though Recommend using albuterol inhaler 2 puffs every 4-6 hour as needed Will have for cough 2. -Diabetes, per last labs A1c was 7.4, [...] alogliptin and Lantus Follow patient in a.m. 3. -Skin rash/acne, continue with doxycycline Refer to Derm again Patient was no-show for her last visit 4. -Hypertension, blood pressure at goal Continue with current medicine Continue with low-salt diet Recommended staying hydrated Patient is on the water pill. 5. -Hyperlipidemia, continue with current medicine Denies side effect Continue with heart healthy diet 6. -CTS/ulnar neuropathy, following Ortho 7. -Depression, denies SI/HI Continue with current medicine continue follow 8. -S/p, right big toe surgery, continue follow non-VA podiatry Check labs today patient is going to have labs at [facility]: Order placed SUMMARY STATEMENT: Plan of care has been discussed with including expected therapeutic benefits and potential side effects of prescribed medication and treatments. [place] verbalizes understanding and is in agreement with the plan of care. Patient was instructed to keep all scheduled appointments and contact order entry clerk for any additional problems. Medication Reconciliation Opt STL: I have reviewed the patient's medication list (including active outpatient prescriptions [facility] ([facility]) and dispensed from another [facility] or [facility] (remote) as well as inpatient orders (local pending and active), local clinic medications, locally documented non-VA medications, and local prescriptions that have or been discontinued in the past 90 days.) with the patient and/or his/her care-principal developer. Handwritten corrections, additions and/or deletions were made to the list, as appropriate. Corrected Outpatient Medication List was provided to the patient/caregiver. Inhaler Use in COPD: Patient had Inhaler Use education at this encounter. Level of Understanding: Good /jacek/ SWAPNA JUNG staff physician Signed: 11/29/2023 12:20 SWAPNA JUNG [facility] December 06, 2023 10:49 AM ADMINISTRATIVE NOT E: LOCAL TITLE: ADMINISTRATIVE STL STANDARD TITLE: ADMINISTRATIVE NOTE DATE OF NOTE: DECEMBER 06, 2023@10:49 ENTRY DATE: DECEMBER 06, 2023@10:49:15 AUTHOR: SWAPNA JUNG EXP COSIGNER: URGENCY: STATUS: COMPLETED PC: Called pt to inform about labs VM has personal greetings so I was comfortable to leave VM Refer pt to cp for uncontrolled DM Recommend calling back clinic. /vinnie JUNG staff physician Signed: 12/08/2023 11:50 SWAPNA JUNG [place] [facility] November 29, 2023 11:32 AM PRIMARY CARE NOTE: LOCAL TITLE: PRIMARY CARE PROVIDER ESTABLISHED VISIT STL STANDARD TITLE: PRIMARY CARE NOTE DATE OF NOTE: NOVEMBER 29, 2023@11:32 ENTRY DATE: NOVEMBER 29, 2023@11:32:58 AUTHOR: SWAPNA JUNG EXP COSIGNER: URGENCY: STATUS: COMPLETED PRIMARY CARE PROVIDER ESTABLISHED VISIT STL Has ADDENDA ESTABLISHED PATIENT [id number]: REASON FOR VISIT/CHIEF COMPLAINT: URI/uncontrolled diabetes Please note that this dictation was completed with computer voice recognition software, often unanticipated grammatical, syntax and other interpretive errors are inadvertently transcribed by the computer software. Please disregard these errors. HPI: 58 YO AAF with medical hx of DM2,Hypertension, HL s/p bilateral carpal tunnel syndrome, ACN/facial scars Back pain, knee pain s/p bilateral knee surgery HPI: Patient is here for follow-up after seen in urgent care for cough and chest Chest congestion, treated with oral steroid with tapering dose, 1 day Medicine left Patient is complaining of chest congestion and cough causing chest wall pain Asking for albuterol and Flonase inhaler Patient reports she again break out in rash all over her face and neck Taking doxycycline twice daily Blood sugars are running higher than 500 feeling thirsty Per patient taking all medicines and tolerating well Following non-VA podiatry for right foot fracture had surgery in healing Process, and Ortho shoes Denies any other complaint for today WHAT IS YOUR GOAL FOR TODAY? As above SOURCE(S) OF HISTORY: Patient PAST MEDICAL HISTORY: 1) Obesity (SNOMED CT 211238790) 2) 599 3) Acute pharyngitis 4) Chronic back pain (SNOMED CT 605413372) 5) Dermatophytosis of foot (ICD-9-CM 110.4) 6) Asthma * (ICD-9-CM 493.90) 7) Knee pain (SNOMED CT 6648940870) 8) Psychotic Disorder NOS 9) Chronic Low Back Pain (ICD-9-CM 724.2) 10) Asthma (SNOMED CT 646823065) 11) Benign essential hypertension (SNOMED CT 3826258) 12) Anxiety Disorder NOS 13) Chronic anxiety (SNOMED CT 378926723) 14) Muscle Spasm (ICD-9-CM 728.85) 15) Breast Mass (ICD-9-CM 611.72) 16) OA - Osteoarthritis (SNOMED CT 468680844) 17) Hypokalemia * (ICD-9-CM 276.8) 18) 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< (SNOMED CT 533211379) 19) Asthma (SNOMED CT 781124743) 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 MEDICATION RECONCILIATION: I have reviewed the patient's medication list with the patient and/or his/her care-principal developer. Handwritten corrections, additions and/or deletions were made to the list. Corrected Outpatient Medication List was provided to the patient/caregiver. Active Outpatient Medications (including Supplies): Active Outpatient Medications Status 1) ALOGLIPTIN 25MG TAB TAKE ONE TABLET BY MOUTH ONCE A ACTIVE DAY TO LOWER BLOOD SUGAR 2) CAMPHOR 0.5/MENTHOL 0.5% LOTION APPLY LIBERALLY TO ACTIVE AFFECTED AREA(S) NEEDED FOR ITCHING - (EXTERNAL USE ONLY) 3) CETIRIZINE HCL 10MG TAB TAKE ONE TABLET BY MOUTH ONCE ACTIVE A DAY TAKE DAILY FOR ITCH AND ALLERGIES 4) DOXYCYCLINE HYCLATE 100MG TAB TAKE ONE TABLET BY ACTIVE MOUTH TWICE A DAY FOR ACNE WITH A FULL MEAL AND GLASS OF WATER. 5) TACROLIMUS 0.1% TOP OINT APPLY LIGHTLY TO AFFECTED ACTIVE AREA(S) ONCE A DAY FOR FACE (EXTERNAL USE ONLY) Active Non-VA Medications Status 1) Non-VA ASPIRIN 81MG EC TAB 81MG BY MOUTH ONCE A DAY ACTIVE NEEDED 2) Non-VA MULTIVITAMIN CAP/TAB 1 TABLET BY MOUTH ONCE A ACTIVE DAY 7 Total Medications ROS: Denies fevers or chills No ear pain, positive nasal congestion and sore throat No neck pain No difficulty in breathing, cough and wheezing No chest pain, shortness of breath or palpitation Denies abdominal pain, no nausea/vomiting, no diarrhea or constipation Denies urinary complaint Skin: Skin rash around face and neck No lower leg edema PHYSICAL EXAMINATION: Female General appearance: VITALS (most recent, as listed in the electronic record): B/P: 114/75 (11/29/2023 11:08) Pulse: 95 (11/29/2023 11:08) Temperature: 97.4 F [36.3 C] (11/29/2023 11:08) Weight: 169 lb [76.66 kg] (11/29/2023 11:08) Height: 59 in [149.9 cm] (10/29/2023 08:22) BMI: 34.2 Pain: 8 (11/29/2023 11:08) (0-10 scale) Patient Weight History - Last Four 1. 169.0 lbs. / 76.7 kg. on NOVEMBER 29, 2023@11:08:25 2. 181.8 lbs. / 82.5 kg. on OCT 29, 2023@08:22:36 3. 181.3 lbs. / 82.2 kg. on JUL 23, 2023@07:51:53 4. 180.0 lbs. / 81.7 kg. on MAY 28, 2023@14:05:25 Physical exam 58 years old Afro-Swazi female, NAD, well-developed HEENT: TMs intact, OP pink Neck: Supple. No LAD Chest: Decreased breath sounds all over chest no wheeze Little tender around right chest wall CV:RRR Abd:soft, nontender, nondistended Extremities: Right foot in Ortho shoes Skin; healing lesion around neck, face is clear DATA REVIEW: HbA1C: HGA1C 7.4 H % 06/10/2023 08:40 Lipid Panel: TRIGLYCERIDE 83 mg/dL 06/10/2023 08:40 CHOLESTEROL 172 mg/dL 06/10/2023 08:40 HDL(New) 66 mg/dL 06/10/2023 08:40 CALCULATED LDL 89 mg/dL 06/10/2023 08:40 CMP: SODIUM 139 mEq/L 06/10/2023 08:40 POTASSIUM 4.3 mEq/L 06/10/2023 08:40 CHLORIDE 104 mEq/L 06/10/2023 08:40 UREA NITROGEN 12.6 mg/dL 06/10/2023 08:40 CREATININE 1.01 mg/dL 06/10/2023 08:40 CALCIUM 9.7 mg/dL 06/10/2023 08:40 PROTEIN 7.3 g/dL 06/10/2023 08:40 ALBUMIN 4.7 g/dL 06/10/2023 08:40 ALKALINE PHOSPHATASE 94 U/L 06/10/2023 08:40 ALT/SGPT 38 U/L 06/10/2023 08:40 AST/SGOT 28 U/L 06/10/2023 08:40 TOTAL BILIRUBIN 0.4 mg/dL 06/10/2023 08:40 CARBON DIOXIDE 28 mEq/L 06/10/2023 08:40 GLUCOSE 275 H mg/dL 06/10/2023 08:40 EGFR (CKD-EPI 2020) 64.1 06/10/2023 08:40 CBC: WBC 6.8 10*3/uL 06/10/2023 08:40 RBC 4.39 10*6/uL 06/10/2023 08:40 HGB 12.1 g/dL 06/10/2023 08:40 HCT 39.4 % 06/10/2023 08:40 MCV 89.7 fL 06/10/2023 08:40 MCH 27.6 pg 06/10/2023 08:40 MCHC 30.7 L g/dL 06/10/2023 08:40 RDW 13.5 % 06/10/2023 08:40 PLT 180 10*3/uL 06/10/2023 08:40 MPV 12.7 H fL 11/30/2022 13:18 NEUTROPHILS, AUTO % 57 % 06/10/2023 08:40 LYMPHOCYTES, AUTO % 29 % 06/10/2023 08:40 MONOCYTES, AUTO % 7 % 06/10/2023 08:40 EOSINOPHILS, AUTO % 6 % 06/10/2023 08:40 BASOPHILS, AUTO % 1 % 06/10/2023 08:40 IMMATURE GRANS, AUTO % 0.4 % 12/08/2021 08:30 NEUTROPHILS, ABSOLUTE 3.85 10*3/uL 06/10/2023 08:40 LYMPHOCYTES, ABSOLUTE 1.99 10*3/uL 06/10/2023 08:40 MONOCYTES, ABSOLUTE 0.44 10*3/uL 06/10/2023 08:40 EOSINOPHILS, ABSOLUTE 0.41 10*3/uL 06/10/2023 08:40 BASOPHILS, ABSOLUTE 0.04 10*3/uL 06/10/2023 08:40 IMMATURE GRANS, AUTO ABS 0.03 10*3/uL 12/08/2021 08:30 IMMATURE PLT FRACTION 12.9 H % 06/10/2023 08:40 TSH: TSH 1.154 uIU/mL 06/10/2023 08:40 INR: INR VALUE 1.1 INR 11/30/2022 13:18 PROTIME 11.8 sec 11/30/2022 13:18 UA: URINE COLOR [place] 11/30/2022 13:18 APPEARANCE Ex.Turbid 11/30/2022 13:18 U.PH 5.5 11/30/2022 13:18 U.BILIRUBIN Negative mg/dL 11/30/2022 13:18 U.NITRITE Negative mg/dL 11/30/2022 13:18 URINE RBC/HPF 3 /HPF 11/30/2022 13:18 URINE WBC/HPF <1 /HPF 11/30/2022 13:18 BACTERIA RARE /HPF 11/30/2022 13:18 SQUAMOUS EPITH. 11 /HPF 11/30/2022 13:18 MUCUS MANY /LPF 11/30/2022 13:18 HYALINE CASTS 3 /LPF 09/04/2022 19:31 Chest x-ray: Impression for CHEST 2 VIEWS PA&LAT, 01/08/05, case [id number] No evidence of active pulmonary disease. Result: Acceptable Follow-up Action: Data results reviewed with patient and/or caregiver. Assessment/planning 1. -Bronchitis/CAP/asthma, patient is already on doxycycline Get chest x-ray Albuterol and Flonase refilled Treat cough with Tessaldarrin Mckeon Highly recommend staying hydrated Proceed to ER if symptoms get worse Patient is going to pick medicine from this even though Recommend using albuterol inhaler 2 puffs every 4-6 hour as needed Will have for cough 2. -Diabetes, per last labs A1c was 7.4, [...] alogliptin and Lantus Follow patient in a.m. 3. -Skin rash/acne, continue with doxycycline Refer to Derm again Patient was no-show for her last visit 4. -Hypertension, blood pressure at goal Continue with current medicine Continue with low-salt diet Recommended staying hydrated Patient is on the water pill. 5. -Hyperlipidemia, continue with current medicine Denies side effect Continue with heart healthy diet 6. -CTS/ulnar neuropathy, following Ortho 7. -Depression, denies SI/HI Continue with current medicine continue follow 8. -S/p, right big toe surgery, continue follow non-VA podiatry Check labs today patient is going to have labs at [facility]: Order placed SUMMARY STATEMENT: Plan of care has been discussed with including expected therapeutic benefits and potential side effects of prescribed medication and treatments. [place] verbalizes understanding and is in agreement with the plan of care. Patient was instructed to keep all scheduled appointments and contact order entry clerk for any additional problems. Medication Reconciliation Opt STL: I have reviewed the patient's medication list (including active outpatient prescriptions dispensed from this [facility] (local) and dispensed from another VA or [facility] facility (remote) as well as inpatient orders (local pending and active), local clinic medications, locally documented non-VA medications, and local prescriptions that have or been discontinued in the past 90 days.) with the patient and/or his/her care-principal developer. Handwritten corrections, additions and/or deletions were made to the list, as appropriate. Corrected Outpatient Medication List was provided to the patient/caregiver. Inhaler Use in COPD: Patient had Inhaler Use education at this encounter. Level of Understanding: Good /jacek/ SWAPNA JUNG staff physician Signed: 11/29/2023 12:20 12/07/2023 ADDENDUM STATUS: COMPLETED A1C > 10, need close follow up for optimal control of diabetes. Thanks /jacek/ SWAPNA JUNG staff physician Signed: 12/07/2023 11:12 Receipt Acknowledged By: 12/07/2023 22:59 /jacek/ Osiel Post Pharm.D. Clinical Pharmacist 12/07/2023 ADDENDUM STATUS: COMPLETED RTC entered for scheduling with Team C PharmD for closer DM management/follow-up. Thank you! /vinnie Post Pharm.D. Clinical Pharmacist Signed: 12/07/2023 22:59 12/13/2023 ADDENDUM STATUS: COMPLETED Please print out test letter dated 12-08-23 to mail pt.thanks /jacek/ SWAPNA JUNG staff physician Signed: 12/13/2023 08:52 Receipt Acknowledged By: 12/13/2023 10:02 /jacek/ AMARILIS DUNBAR ADVANCE MEDICAL SUPPORT ASSISANT 12/14/2023 ADDENDUM STATUS: COMPLETED During visit with [facility], requested renewals for the following prescriptions: - cholecalciferol - hydrocortisone cream - sulfacetamide suspension Please renew if deemed appropriate. Thank you! /vinnie Post PharmRudy Clinical Pharmacist Signed: 12/14/2023 07:33 Receipt Acknowledged By: * AWAITING SIGNATURE * SWAPNA JUNG [facility] November 29, 2023 11:11 AM NURSING NOTE: LOCAL TITLE: V15 PACT FACE TO FACE NOTE STL STANDARD TITLE: NURSING NOTE DATE OF NOTE: NOVEMBER 29, 2023@11:11 ENTRY DATE: NOVEMBER 29, 2023@11:11:38 AUTHOR: OH CLEMENS COSIGNER: URGENCY: STATUS: COMPLETED Provider Visit: Patient Identifiers : Full Name Date of Reason for visit: Established Follow-Up Mode of Arrival: Ambulatory Allergy Review: EGGS, METFORMIN, EMPAGLIFLOZIN, PENICILLIN Allergy list reviewed and remains current. Recent Vital Signs: Temperature: 97.4 F [36.3 C] (11/29/2023 11:08) Pulse: 95 (11/29/2023 11:08) Respiration: 20 (11/29/2023 11:08) B/P: 114/75 (11/29/2023 11:08) Pain: 8 (11/29/2023 11:08) Wt: 169 lb [76.66 kg] (11/29/2023 11:08) Ht: 59 in [149.9 cm] (10/29/2023 08:22) BMI: 34.2 POX: 99% (11/29/2023 11:08) Would you like to discuss any personal problem, family problem, alcohol use, drug use, or a mental or emotional illness? Yes [place] is not in active care and requests to speak to [facility] Provider, warm hand-off initiated previously seen by Dr Melendez [facility] ([facility]), please select appointment type: Face to face: Yes- Done Contact provided Primary Care phone number and encouraged to call if any questions or concerns. Review that after hours nurse line [phone] and emergency room are available 15/02 for patient use. Contact verbalized good understanding. Suicide Screen: C-SSRS Screening [place]-Suicide Severity Rating Scale (C-SSRS Screener) 1. Over the past month, have you wished you were or wished you could go to sleep and not wake up? No 2. Over the past month, have you had any actual thoughts of killing yourself? No 3. Over the past month, have you been thinking about how you might do this? Response not required due to responses to other questions. 4. Over the past month, have you had these thoughts and had some intention of acting on them? Response not required due to responses to other questions. 5. Over the past month, have you started to work out or worked out the details of how to kill yourself? Response not required due to responses to other questions. 6. If yes, at any time in the past month did you intend to carry out this plan? Response not required due to responses to other questions. 7. In your lifetime, have you ever done anything, started to do anything, or prepared to do anything to end your life (for example, collected pills, obtained a gun, gave away valuables, went to the roof but didn't jump)? No 8. If YES, was this within the past 3 months? Response not required due to responses to other questions. Alcohol Use Screen (AUDIT-C): Alcohol Screen: SCREEN FOR ALCOHOL (AUDIT-C) An alcohol screening test (AUDIT-C) was negative (score=0). 1. How often did you have a drink containing alcohol in the past year? Consider a drink to be a 12 ounce can or bottle of regular beer, 8 ounces of malt liquor, a 5 ounce glass of table wine, or a 1.5 ounce shot of liquor (like scotch, gin, or vodka). Never 2. How many drinks containing alcohol did you have on a typical day when you were drinking in the past year? Response not required due to responses to other questions. 3. How often did you have 4 or more drinks on one occasion in the past year? Response not required due to responses to other questions. Homelessness/Food Insecurity Screen: In the past 2 months, have you been living in stable housing that you own, rent, or stay in as part of a household? Yes - Living in stable housing. Are you worried or concerned that in the next 2 months you may NOT have stable housing that you own, rent, or stay in as part of a household? No - Not worried about housing near future The reports the following: Within the past 12 months, you worried whether your food would run out before you got money to buy more. Often true Within the past 12 months, the food you bought just didn't last and you didn't have money to get more. Often true No referral for additional assistance requested by . Reason: [place] declines Pain Initial History (Nursing): - Does the patient's self-report of pain correspond with his non-verbal pain behaviors (e.g., grimacing, limping, etc.)? Yes Source of information: patient. The PANPS was not used for the pain score. This patient's last pain assessment score was: 8 (11/29/2023 11:08). A detailed pain assessment showed the following: Origin of Pain: Origin: unknown Pain characteristics (per patient's own words) Constant, Burning; itching Location of current pain Face, Head, Neck Onset/Duration of the current pain. Less than 1 month Current treatment--Exacerbating Factors: NA Current treatment--Alleviating Factors: Medications Response to treatment: Current treatment is ineffective. Will inform patient's provider. /jacek/ OH CLEMENS LPN LICENSED PRACTICAL NURSE Signed: 11/29/2023 11:18 OH CLEMENS [facility]
--- OUTSIDE RECORDS SUMMARY | 2024-09-27 08:22 | XMS_ITS | Clinical Summary ---
Author Organization [facility] Address [address] [place] [address] Care Team Providers Care Oil Well Driller Name Role Phone Unavailable Primary Care Provider Unavailabl e Social History Tobacco Use Types Packs/Day Years Used Date Smoking Tobacco: Never Assessed Comments Unknown Sex and Gender Information Value Date Recorded Sex Assigned at Not on file Legal Sex Female 10:30 AM CDT Gender Identity Not on file Sexual Orientation Not on file Plan of Treatment Health Maintenance Due Date Last Done Comments DTAP/TDAP/TD VACCINES (1 - Tdap) 1983 CERVICAL CANCER SCREENING 1994 BREAST CANCER SCREENING 2004 COLORECTAL SCREENING 2009 Colorectal Cancer Screening 2009 FIT-DNA Q 3 years 2009 FIT/FOBT Q 1 year 2009 Flex Sig/CT Colonography Q 5 years 2009 ZOSTER VACCINE (1 of 2) 2014 INFLUENZA VACCINE (#1) 2024 RSV VACCINE (60+ or ) (1 - 1-dose 75+ series) 2039 HEPATITIS B VACCINES Aged Out No long er eligible based on patient's age to complete this topic PNEUMOCOCCAL VACCINE 0-49 YEARS Aged Out No longer eligible based on patient's age to complete this topic Insurance [employer]
--- OUTSIDE RECORDS SUMMARY | 2024-09-27 08:22 | XMS_ITS | Encounter Summary ---
Author Name [facility] Address [address] [place] [address] Care Team Providers Care Instructional Writer Name Role Phone SWAPNA JUNG Primary Care [...] section includes the information on record at [place] for the Encounter. Date/Time Encounter Type Encounter Description Reason Provider Source Aug 11, 2024 01:45 PM OFFICE O/P EST MOD 30 MIN DERMATOLOGY ICD-10-CM L70.5 Acne excoriee BRIE MULLINS Encounter Template Text not used by [place] Assessments - Encounter Diagnoses This section includes the primary and secondary diagnoses documented for the Encounter. Date/Time Primary/Secondary Diagnosis Diagnosis Name Provider Source Aug 22, 2024 10:33 AM PRIMARY Acne excoriee ADEOSHUN,ADEMOL A A [facility] Aug 22, 2024 10:33 AM SECONDARY Acne, unspecified ADEOSHUN,ADEMOL A A [facility] Aug 22, 2024 10:33 AM SECONDARY Irritant contact dermatitis due to other agents ADEOSHUN,ADEMOL A A [facility] Plan of Treatment: Future Appointments (+ 6 months) and Future Tests (+/- 45 days) The Plan of Treatment section includes future care activities for the patient from [facility] [place] [facility] This section includes future appointments and future orders which are active, pending or scheduled. Future Appointments This section includes appointments that were scheduled to occur 6 months from the date of the Encounter, up to a maximum of 20 appointments. The data comes from all [place] treatment facilities. Appointment Date/Time Appointment Type Appointme nt Facility Name December 12, 2024 02:00 PM AMBULATORY - MEDICINE [facility] Feb 07, 2025 03:30 PM AMBULATORY - MEDICINE [facility] Advance Directives: All historical and current Section Date Range: From patient's date of to the date document was created. This section includes ALL of a patient's completed or amended [place] Advance and Rescinded Directives. The entries below indicate that a directive exists for the patient, but an actual copy is not included with this document. The data comes from all [facility]. Date Advance Directives Provider Source Sep 17, 2014 ADVANCE DIRECTIVE DISCUSSION TAMMIE GARDNER [facility] Encounter Notes: All associated encounter notes This section contains the clinical notes associated to the Encounter. Date/Time Encounter Note(s) Provider Source Aug 11, 2024 02:00 PM DERMATOLOGY NOTE: LOCAL TITLE: DERMATOLOGY NOTE STANDARD TITLE: DERMATOLOGY NOTE DATE OF NOTE: AUG 11, 2024@14:00 ENTRY DATE: AUG 11, 2024@14:01:04 AUTHOR: DINAH RAYO EXP COSIGNER: BRIE MULLINS URGENCY: STATUS: COMPLETED DERMATOLOGY NOTE Has ADDENDA NOTE CC and HPI: AMBER WIN is a 58 BLACK [place] FEMALE with history of acne excoriee, prurigo nodularis who presents for f/u. Today, patient notes: Patient still having itching. Still breaking out on the face and the back. Patient uses otc vaseline and olive oil on the face to help with dryness. Patient states this has been going on for 10 years since she got out the . ALLERGIES EGGS, METFORMIN, EMPAGLIFLOZIN REVIEW OF SYSTEMS [...] WNL Nails/Hair: WNL ASSESSMENT AND PLAN # Rash # Acne excoriee # Post-inflammatory hyperpigmentation # LSC changes on right > left inferior chin -Discussed with patient the nature of this problem and may be related to stress and rubbing - Discussed this is NOT related to infection particularly viral infection - Continue cetaphil daily - Discussed daily use of broad-spectrum SPF 30+ on face - Stop tretinoin 0.025% cream dark areas on the face, due to drying of face - Ok to continue OTC HC cream ONLY to itchy areas, do not use to open areas - Continue DCN twice a day until time of f/u - Stop gabapentin 100mg qHS; SER sedation, - Continue cetirizine 10mg daily - START tacrolimus 0.1% ointment to face daily - If problem persisit can consider adding Spironolactone Return to clinic 4-6wk Dinah Rayo MD PGY-2 /jacek/ Dinah Rayo MD Forest Supervisor Signed: 08/11/2024 14:27 /jacek/ BIRE MULLINS MD DERMATOLOGY & DERMATOPATHOLOGY Cosigned: 08/11/2024 14:35 08/11/2024 ADDENDUM STATUS: COMPLETED I interviewed and examined the patient and discussed the case with the resident. I was immediately available during entire visit and any procedure(s). I agree with documented history, physical examination, assessment and plan with following edits/corrections: pt endorses pulling hairs from chin and getting ingrown. clinically c/w pseudofoll barbae avoid plucking d/c tretinoin /es/ BRIE MULLINS MD DERMATOLOGY & DERMATOPATHOLOGY Signed: 08/11/2024 14:37 DINAH RAYO [facility]
[2024-09-27 08:26] LABS: Alanine Aminotransferase 25 U/L (6-35); Albumin Level 4.4 g/dL (3.5-5.1); Alkaline Phosphatase 129 U/L (38-126); Anion Gap 9 mmol/L (4-12); Aspartate Amino Transferase 24 U/L (14-36); Bilirubin,Total 0.6 mg/dL (0.2-1.3); Blood Urea Nitrogen 23 mg/dL (7-17); Carbon Dioxide 27 mmol/L (22-30); Chloride 99 mmol/L (98-107); Estimated Glomerular Filt Rate > 60; Glucose 381 mg/dL (65-110); Lactic Acid Reflex 1.2 mmol/L (0.7-2.0); Lipase 259 U/L (23-300); Potassium 3.9 mmol/L (3.4-5.0); Sodium 135 mmol/L (137-145)
[2024-09-27] MEDS: SODIUM CHLORIDE 0.9% IV 1,000 ML 999 ML IV CONT (08:33)
[2024-09-27 08:34] LABS: INR 0.9; Prothrombin Time 12.6 Seconds (11.1-14.7)
[2024-09-27 08:35] LABS: Partial Thromboplastin Time 25.1 Seconds (22.3-36.8)
--- NOTE | 2024-09-27 08:52 | ED.GENADULT ---
HPI - General Adult General Chief complaint: Unspecified Stated complaint: right sided numbness Time Seen by Provider: 09/27/24 07:33 History of Present Illness HPI narrative: 59-year-old female with known diabetes presents to the emergency department for evaluation for right-sided hip pain that radiates from her hip down her leg. Patient denies any acute pain of her knee or ankle but states sometimes the pain does radiate down the right leg. Patient does report she has been taking her diabetes medications. Patient does report prior history of kidney stones. Patient denies any hematuria. Related Data Allergies Allergy/AdvReac Type Severity Reaction Status Date / Time No Known Allergies Allergy Verified 09/27/24 04:48 Review of Systems Review of Systems: All systems reviewed & are unremarkable except as noted in HPI and below Exam Narrative: APPEARANCE: Well appearing, no pain, no distress, well-nourished. HEAD: normocephalic, atraumatic. EYES: PERRLA/EOMI, conjunctivae clear. NOSE: Normal no drainage EARS:TMS clear with good light reflex. THROAT: Pharynx clear, no exudate. NECK: Supple. No adenopathy, no masses. RESPIRATORY: Airway patent, respirations nonlabored. Clear to auscultation bilaterally, no rales, rhonchi, wheezing. CARDIOVASCULAR: Regular rate and rhythm without murmurs rubs or gallops. ABDOMINAL: Soft, nontender, nondistended, normal bowel sounds MUSCULOSKELETAL: Tenderness to right buttock consistent with sciatica NEURO: Alert. Cranial nerves II through XII intact. Good gait. Good coordination. No leg weakness SKIN: Warm, dry. Normal Color PSYCHIATRIC: Normal affect/mood. Course Vital Signs Vital signs: Vital Signs Temperature 98.3 F 09/27/24 04:45 Pulse Rate 90 09/27/24 04:45 Respiratory Rate 20 09/27/24 04:45 Blood Pressure 102/72 09/27/24 04:45 Pulse Oximetry 100 09/27/24 04:45 Oxygen Delivery Room Air 09/27/24 04:45 Temperature 98.3 F 09/27/24 04:45 Pulse Rate 86 09/27/24 12:24 Respiratory Rate 19 09/27/24 12:24 Blood Pressure 112/67 09/27/24 12:24 Pulse Oximetry 100 09/27/24 12:24 Oxygen Delivery Room Air 09/27/24 04:45 Medical Decision Making [facility] Narrative Medical decision making narrative: 59-year-old female presenting to the emergency department for evaluation for right hip pain that is consistent with sciatica. Patient denies any pain in her right knee and right ankle but states intermittently the pain radiate from her hip down that leg. Does have known diabetes and has been taking her medications, patient's hemoglobin A1c is 11.9. Patient is currently afebrile with no leukocytosis and hemoglobin of 12.6. INR 0.9 patient has no significant abnormalities on her CMP other than a blood sugar of 370, patient has a normal lactic acid with no anion gap urine has ketones but no underlying evidence of infection. Patient was treated with a L of IV fluids and IV insulin. Patient's hemoglobin A1c was 11.9 this does correlate with a blood sugar of approximately 300. Patient's blood sugar was improved to 270. Patient will be provided medications for pain control for suspected sciatica. Differential Diagnosis Differential Diagnosis: Urinary tract infection, kidney stone, DKA, hyperglycemia, sciatica Vital Signs Vital Signs: Vital Signs Temperature 98.3 F 09/27/24 04:45 Pulse Rate 90 09/27/24 04:45 Respiratory Rate 20 09/27/24 04:45 Blood Pressure 102/72 09/27/24 04:45 Pulse Oximetry 100 09/27/24 04:45 Oxygen Delivery Room Air 09/27/24 04:45 Temperature 98.3 F 09/27/24 04:45 Pulse Rate 86 09/27/24 12:24 Respiratory Rate 19 09/27/24 12:24 Blood Pressure 112/67 09/27/24 12:24 Pulse Oximetry 100 09/27/24 12:24 Oxygen Delivery Room Air 09/27/24 04:45 Lab Data Lab results reviewed: Yes I reviewed the patient's lab results. 09/27/24 08:02 09/27/24 08:02 Labs: Lab Results 09/27/24 09/27/24 09/27/24 Range/Units 07:59 08:01 08:02 WBC 9.4 (4.5-10.0) K/mm3 RBC 4.62 (4.2-5.4) M/mm3 Hgb 12.6 (12.0-15.0) g/dL Hct 40.2 (37.0-47.0) % MCV 87.0 (80-100) fl MCH 27.3 (26-34) pg MCHC 31.3 L (32-36) g/dl RDW 12.8 (11.5-14.5) % Plt Count 183 (150-375) k/mm3 MPV 13.0 H (7.4-10.4) fl Immature Gran % (Auto) 0.3 (0-0.5) % Neut % (Auto) 43.9 L (45.5-73.1) % Lymph % (Auto) 46.5 H (18.3-44.2) % [place] % (Auto) 5.7 (2.6-8.5) % Eos % (Auto) 3.1 (0-4.4) % Baso % (Auto) 0.5 (0.2-1.2) % Lymph # (Auto) 4.37 H (0.9-3.2) K/mm3 [place] # (Auto) 0.5 (0.1-0.6) K/mm3 Eos # (Auto) 0.3 (0-0.3) K/mm3 Baso # (Auto) 0.1 (0.0-0.1) K/mm3 Abs Immat Gran (auto) 0.03 (0.00-0.031) K/mm3 Absolute Neuts (auto) 4.1 (1.3-6.7) K/mm3 Absolute Nucleated RBC 0.000 (0.0-0.012) K/mm3 Nucleated RBC % 0.0 (0.0-0.2) % PT 12.6 (11.1-14.7) Seconds INR 0.9 APTT 25.1 (22.3-36.8) Seconds Sodium 135 L (137-145) mmol/L Potassium 3.9 (3.4-5.0) mmol/L Chloride 99 (98-107) mmol/L Carbon Dioxide 27 (22-30) mmol/L Anion Gap 9 (4-12) mmol/L BUN 23 H (7-17) mg/dL Creatinine 0.80 (0.7-1.0) mg/dL Estim Creat Clear Calc Not Reportable Estimated GFR > 60 (59 - ) Glucose 381 H (65-110) mg/dL POC Capillary Glucose 371 H (65-105) mg/dl Hemoglobin A1c 11.9 H (<5.7) % Lactic Acid 1.2 (0.7-2.0) mmol/L Calcium 10.0 (8.4-10.2) mg/dL Total Bilirubin 0.6 (0.2-1.3) mg/dL AST 24 (14-36) U/L ALT 25 (6-35) U/L Alkaline Phosphatase 129 H (38-126) U/L Total Protein 7.0 (6.3-8.2) g/dL Albumin 4.4 (3.5-5.1) g/dL Lipase 259 (23-300) U/L Urine Color Yellow (Yellow) Urine Appearance Clear (Clear) Urine pH 5.5 (5.0-9.0) Ur Specific [place] 1.031 (1.001-1.035) Urine Protein Negative (Negative) mg/dL Urine Glucose (UA) 3+ H (Negative) mg/dL Urine Ketones Negative (Negative) mg/dL Ur Blood (Man) Negative (Negative) Urine Nitrate Negative (Negative) Urine Bilirubin Negative (Negative) Urine Urobilinogen 0.2 (<2.0) mg/dL Leukocyte Esterase Rfl Negative (Negative) KEZIA/UL 03// Range/Units 10:59 WBC (4.5-10.0) K/mm3 RBC (4.2-5.4) M/mm3 Hgb (12.0-15.0) g/dL Hct (37.0-47.0) % MCV (80-100) fl MCH (26-34) pg MCHC (32-36) g/dl RDW (11.5-14.5) % Plt Count (150-375) k/mm3 MPV (7.4-10.4) fl Immature Gran % (Auto) (0-0.5) % Neut % (Auto) (45.5-73.1) % Lymph % (Auto) (18.3-44.2) % [place] % (Auto) (2.6-8.5) % Eos % (Auto) (0-4.4) % Baso % (Auto) (0.2-1.2) % Lymph # (Auto) (0.9-3.2) K/mm3 [place] # (Auto) (0.1-0.6) K/mm3 Eos # (Auto) (0-0.3) K/mm3 Baso # (Auto) (0.0-0.1) K/mm3 Abs Immat Gran (auto) (0.00-0.031) K/mm3 Absolute Neuts (auto) (1.3-6.7) K/mm3 Absolute Nucleated RBC (0.0-0.012) K/mm3 Nucleated RBC % (0.0-0.2) % PT (11.1-14.7) Seconds INR APTT (22.3-36.8) Seconds Sodium (137-145) mmol/L Potassium (3.4-5.0) mmol/L Chloride (98-107) mmol/L Carbon Dioxide (22-30) mmol/L Anion Gap (4-12) mmol/L BUN (7-17) mg/dL Creatinine (0.7-1.0) mg/dL Estim Creat Clear Calc Estimated GFR (59 - ) Glucose (65-110) mg/dL POC Capillary Glucose 270 H (65-105) mg/dl Hemoglobin A1c (<5.7) % Lactic Acid (0.7-2.0) mmol/L Calcium (8.4-10.2) mg/dL Total Bilirubin (0.2-1.3) mg/dL AST (14-36) U/L ALT (6-35) U/L Alkaline Phosphatase (38-126) U/L Total Protein (6.3-8.2) g/dL Albumin (3.5-5.1) g/dL Lipase (23-300) U/L Urine Color (Yellow) Urine Appearance (Clear) Urine pH (5.0-9.0) Ur Specific [place] (1.001-1.035) Urine Protein (Negative) mg/dL Urine Glucose (UA) (Negative) mg/dL Urine Ketones (Negative) mg/dL Ur Blood (Man) (Negative) Urine Nitrate (Negative) Urine Bilirubin (Negative) Urine Urobilinogen (<2.0) mg/dL Leukocyte Esterase Rfl (Negative) KEZIA/UL Discharge Plan Discharge Clinical Impression: Sciatica, Hyperglycemia Patient Disposition: Home, Self-Care Condition: Stable Instructions: Antibiotic Form, Sciatica (ED), Diabetic Hyperglycemia (ED) Additional Instructions: Follow a diabetic diet. Have close follow-up with primary care physician. Alfreda Chester as directed for your sciatic pain. [place] as needed for additional pain control. The Medrol Dosepak may increase your blood sugars so you will need to keep close track on your blood sugars. If you have any worsening symptoms and please call or return to the emergency department. Patient Language: Ukrainian Prescriptions: New hydrocodone-acetaminophen 5-325 mg tablet 1 tablet PO Q12H PRN (Reason: pain) Qty: 10 0RF methylprednisolone [Medrol (Vega)] 4 mg tablets,dose pack See Rx Instructions .ROUTE .COMPLEX Qty: 21 0RF Rx Instructions: for 6 days Follow-up/Referrals: UNKNOWN,DOCTOR [Primary Care Provider] -
[2024-09-27] MEDS: CYCLOBENZAPRINE HCL 10 MG TABLET PO (09:01)
[2024-09-27] MEDS: KETOROLAC 15 MG/ML VIAL (*BKC) IV PUSH (09:01)
[2024-09-27 09:06] LABS: Hemoglobin A1C 11.9 % (<5.7)
[2024-09-27] MEDS: INSULIN HUMAN REGULAR (*BKC) 100 UNITS/ML IV PUSH (09:53)
[2024-09-27 11:04] LABS: Glucose Point of Care 270 mg/dl (65-105)
== END 2024-09-27 12:27 | disposition home or self-care (01) ==
PROVIDERS: Emergency Provider Emergency Medicine
DX: M54.31 Sciatica, right side (principal); E11.65 Type 2 diabetes mellitus with hyperglycemia; Z87.442 Personal history of urinary calculi
CPT/HCPCS: 36415; 80053; 81003; 82948; 83036; 83605; 83690; 85025; 85610; 85730; 96361; 96374; 96375; 99284; A9270; J1815; J1885; J7030